=== PATIENT | female | born 1965 | race Caucasian/White ===

== ENCOUNTER 2019-06-23 17:11 | Emergency (ER) | payer OTHER, SELFPAY ==
--- NOTE | ~2019-06-23 | XR_ITS ---
EXAMINATION: XR chest 2V DATE: 06/23/2019 19:32 INDICATION: Cough TECHNIQUE: PA and lateral views of the chest are obtained. COMPARISON: 06/02/2019 FINDINGS: The lungs are hyperinflated but free of acute opacities. There is no pleural effusion or pn eumothorax. The cardiomediastinal silhouette is normal. There is moderate thoracic spondylosis. IMPRESSION: 1. Hyperinflation without acute cardiopulmonary abnormality. Reviewed, dictated and finalized at location A. 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
[2019-06-23 18:25] VITALS: BP 199/85; PULSE 102; RESP 18; TEMP 36.6; O2SAT 100
--- NOTE | 2019-06-23 18:41 | ED.URI ---
HPI - URI/Sore Throat General Chief Complaint: Upper Respiratory Infection Stated Complaint: cough that won't quit Time Seen by Provider: 06/23/19 18:24 Source: patient Mode of arrival: ambulatory Limitations: no limitations History of Present Illness HPI Narrative: The pt is a 53 y/o female who presents to the ED c/o a productive cough onset two weeks ago. Pt states that she visited Dr. Lares's office two weeks ago, and was diagnosed with flu. She states that she received Tamiflu and that she had an X-Ray performed and then was diagnosed with bronchitis. She states that she received a steroid. She notes that she has not any relief provided. She notes that she has experienced lightheadedness, CP and vomiting. She notes that she is feeling stressed at home. Pt reports a PMHx of COPD and migraines. MD elicited complaint: cough (Productive) Pertinent past history: COPD and other (Bronchitis) Onset (ago): week(s) (2) Relieving factors: nothing Associated symptoms: chest pain, vomiting and other (Lightheadedness, feeling stressed) Treatments prior to arrival: other (Steroids, Tamiflu) Related Data Home Medications Medication Instructions Recorded Confirmed amitriptyline 100 mg PO HS 03/17/19 03/17/19 baclofen 10 mg PO QID 03/17/19 03/17/19 gabapentin 600 mg PO TID 03/17/19 03/17/19 oxycodone-acetaminophen [Percocet] 1 tablet PO Q6H PRN 03/17/19 03/17/19 Allergies Allergy/AdvReac Type Severity Reaction Status Date / Time alprazolam Allergy Unknown Swelling Verified 06/02/19 13:46 Review of Systems Review of Systems: All systems reviewed & are unremarkable except as noted in HPI and below Cardiovascular: Cardiovascular: Reports chest pain Respiratory: Respiratory: Reports cough (Productive) Gastrointestinal: Gastrointestinal: Reports vomiting Neurologic: Reports other (Lightheadedness) Psychiatric: Psychiatric: Reports other (Feeling stressed) [facility] Past Medical History Medical History (Updated 06/23/19 @ 21:38 by Aaron Shankar MD) Bronchitis Carpal tunnel syndrome on both sides Carpal tunnel syndrome, bilateral Chronic back pain COPD (chronic obstructive pulmonary disease) Depression Emphysema of lung GERD (gastroesophageal reflux disease) Migraines PUD (peptic ulcer disease) Surgical History Surgical History (Updated 06/23/19 @ 18:57 by Russel Lisa) H/O Spinal surgery Lumbar spinal cage H/O tubal ligation History of carpal tunnel surgery History of shoulder surgery Left S/P endometrial ablation Social History Social History Smoking status: Current every day smoker Tobacco type: cigarettes Second hand tobacco smoke exposure: No Alcohol intake: current Substance use: never Comments PCP: Dr. Lares Exam Narrative: Exam Narrative: GENERAL: Well-appearing, well-nourished, and in no acute distress. HEAD: Normocephalic, atraumatic. EYES: PERRLA and EOMI. ENT: Nares clear, no rhinorrhea or epistaxis. Mucous membranes moist. NECK: Supple. CHEST: Clear to auscultation. No respiratory distress. HEART: Regular rate and rhythm. No murmur heard. Normal peripheral pulses. ABDOMEN: Soft, nontender, nondistended, normal active bowel sounds. EXTREMITIES: Normal range of motion. No edema. SKIN: Warm, dry, no rash. NEURO: No focal deficits. Alert and oriented x3. PSYCH: Normal mood and affect. Course Course Emergency Course: Inform patient about her lab work, chest x-ray findings. Advised her to cut down smoking which will help with her cough. However patient does not believe the chest x-ray results here. I advised her to follow-up with her primary doctor. Vital Signs Vital signs: Vital Signs Temperature 36.6 C 06/23/19 18:25 Pulse Rate 102 H 06/23/19 18:25 Respiratory Rate 18 06/23/19 18:25 Blood Pressure 199/85 H 06/23/19 18:25 Pulse Oximetry 100 06/23/19 18:25 Temperature 36.6 C 06/23/19 18:
[2019-06-23 20:38] LABS: Basophils Percent Auto 0.5 % (0.2-1.2); Eosinophils Absolute Auto 0.1 K/mm3 (0-0.3); Eosinophils Percent Auto 1.6 % (0-4.4); Hematocrit 47.2 % (37.0-47.0); Hemoglobin 15.8 g/dL (12.0-15.0); Immature Granulocyte Absolute 0.02 K/mm3 (0.00-0.031); Immature Granulocyte Percent A 0.2 % (0-0.5); Lymphocytes Absolute Auto 3.56 K/mm3 (0.9-3.2); Lymphocytes Percent Auto 40.4 % (18.3-44.2); Mean Corpuscular HGB Conc 33.5 g/dl (32-36); Mean Corpuscular Hemoglobin 33.1 pg (26-34); Mean Corpuscular Volume 98.7 fl (80-100); Mean Platelet Volume 9.4 fl (7.4-10.4); Monocytes Absolute Auto 0.4 K/mm3 (0.1-0.6); Monocytes Percent Auto 4.4 % (2.6-8.5); Neutrophils Absolute Auto 4.7 K/mm3 (1.3-6.7); Neutrophils Percent Auto 52.9 % (45.5-73.1); Platelet Count Result 257 k/mm3 (150-375); Red Blood Count 4.78 M/mm3 (4.2-5.4); Red Cell Distribution Width 12.9 % (11.5-14.5); White Blood Count 8.8 K/mm3 (4.5-10.0)
[2019-06-23 20:50] LABS: Blood Urea Nitrogen 8 mg/dL (7-17); Calcium 9.6 mg/dL (8.4-10.2); Carbon Dioxide 29 mmol/L (22-30); Chloride 98 mmol/L (98-107); Estimated Glomerular Filt Rate > 60; Glucose 97 mg/dL (65-105); Sodium 139 mmol/L (137-145)
[2019-06-23 21:02] LABS: NT Pro B Type Natriuretic Pept 166 PG/ML (5-100); Troponin I < 0.012 ng/mL (0.000-0.034)
--- NOTE | 2019-06-23 21:41 | ECG_ITS ---
Measurements Intervals [place] Rate: 79 P: 48 DE: 134 QRS: 50 QRSD: 153 T: 42 QT: 411 QTc: 472 Interpretive Statements SINUS RHYTHM WITH SINUS ARRHYTHMIA RIGHT BUNDLE BRANCH BLOCK ABNORMAL ECG Electronically Signed On 06-24-2019 6:57:46 ELECTRICAL MACHINE BUILDER by Mike Tee D.O.
[2019-06-23 22:03] VITALS: BP 169/90; PULSE 98; RESP 16; O2SAT 96
== END 2019-06-23 22:04 | disposition home or self-care (01) ==
PROVIDERS: Emergency Provider Family Medicine; PCP Internal Medicine
DX: R07.89 Other chest pain (principal); J44.9 Chronic obstructive pulmonary disease, unspecified; K21.9 Gastro-esophageal reflux disease without esophagitis; Z86.711 Personal history of pulmonary embolism; M54.9 Dorsalgia, unspecified; G89.29 Other chronic pain; F17.210 Nicotine dependence, cigarettes, uncomplicated; I45.10 Unspecified right bundle-branch block
CPT/HCPCS: 36415; 71046; 80048; 83880; 84484; 85025; 93005; 99284

== ENCOUNTER 2019-09-07 10:36 | Outpatient (CLI) | payer OTHER, SELFPAY ==
--- NOTE | ~2019-09-07 | XR_ITS ---
XR lumbar spine 2-3V 09/07/2019 10:58 Indication: Low back pain Procedure: 3 views lumbar spine Comparison: No prior studies for comparison. Findings: There is dextrocurvature of the lumbar spine centered at L3. There is disc narrowing at L4- 5 and L5-S1. There are prosthetic cage devices at L5-S1. There is facet hypertrophy at L4-5 and L5-S1 . No acute fracture or traumatic malalignment. Pedicles intact. Impression: 1: Mild-moderate lower lumbar spondylosis with dextroscoliosis. Reviewed, dictated and finalized at location A. Impression: 1: Mild-moderate lower lumbar spondylosis with dextroscoliosis.
== END 2019-09-07 10:37 | disposition home or self-care (01) ==
LOC: ANHIMG 10:38
PROVIDERS: PCP Internal Medicine; Visit Provider Internal Medicine
DX: M54.9 Dorsalgia, unspecified (principal); M47.816 Spondylosis without myelopathy or radiculopathy, lumbar region; M41.86 Other forms of scoliosis, lumbar region
CPT/HCPCS: 72100

== ENCOUNTER 2019-09-08 10:22 | Outpatient (CLI) | payer OTHER, SELFPAY ==
--- NOTE | ~2019-09-08 | XR_ITS ---
EXAMINATION: XR_CERV2-3V_CR DATE: 09/08/2019 10:46 INDICATION: Neck pain. TECHNIQUE: 3 views of cervical spine were obtained. COMPARISON: None. FINDINGS: There is 11 degrees levoscoliosis of cervical spine. There is 2 mm retrolisthesis of C4 on C5 and C5 on C6. Vertebral body heights are normal. There is moderately decreased disc height at C3-C 4 and severely decreased disc height from C4-C5 through C6-C7. There is multilevel uncovertebral join t osteoarthritis, severe bilaterally from C4-C5 through C6-C7. There is multilevel mild to moderate f acet joint osteoarthritis. There is mild central canal stenosis at C4-C5, C5-C6, and C6-C7. No prever tebral soft tissue swelling. IMPRESSION: 1. Severe cervical spondylosis. 2. Cervical levoscoliosis. Reviewed, dictated and finalized at location A.
== END 2019-09-08 10:23 | disposition home or self-care (01) ==
PROVIDERS: PCP Internal Medicine; Visit Provider Internal Medicine
DX: M54.2 Cervicalgia (principal); M47.812 Spondylosis without myelopathy or radiculopathy, cervical region; M41.82 Other forms of scoliosis, cervical region
CPT/HCPCS: 72040

== ENCOUNTER 2019-11-02 09:16 | Outpatient (CLI) | payer OTHER, SELFPAY ==
--- NOTE | ~2019-11-02 | CT_ITS ---
EXAMINATION: CT lung screening DATE: 11/02/2019 10:04 INDICATION: Personal history of tobacco dependence, current smoker with 30 pack year history TECHNIQUE: Computed tomography (CT) of the chest was performed without intravenous contrast. The dose -length product (DLP) was 74.35 mGy-cm. 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 COMPARISON: 08/04/2007. FINDINGS: There is a 7 mm groundglass nodule of the right upper lobe on image 39. There is a 4 mm nod ule in the left upper lobe on image 29. There is moderate emphysema. The lungs are free of focal airs pace opacities. There is no pleural effusion or pneumothorax. No pathologically enlarged thoracic lym ph nodes are identified. The heart size is normal. Calcified coronary artery atherosclerosis is noted . Punctate calcifications in an otherwise normal spleen likely represent healed granulomatous disease . There is moderate thoracic spondylosis. IMPRESSION: 1. Lung-RADS category 2: Benign appearance or behavior. Continue annual screening with noncontrast lo w-dose chest CT in 12 months. Reviewed, dictated and finalized at location A. IMPRESSION: 1. Lung-RADS category 2: Benign appearance or behavior. Continue annual screeni ng with noncontrast low-dose chest CT in 12 months.
== END 2019-11-02 09:17 | disposition home or self-care (01) ==
PROVIDERS: PCP Internal Medicine; Visit Provider Internal Medicine Critical Care Medicine
DX: Z12.2 Encounter for screening for malignant neoplasm of respiratory organs (principal); Z87.891 Personal history of nicotine dependence
CPT/HCPCS: G0297

== ENCOUNTER 2019-11-26 13:33 | Outpatient (CLI) | payer OTHER, SELFPAY ==
--- NOTE | 2019-11-28 17:57 | WPDSIXMINUTE ---
Six Minute Walk Six Minute Walk: DOS: 11/26/2019 REQUESTING: Philippe Funez REASON FOR TESTING: Shortness of breath SIX MINUTE WALK This test was conducted per ATS guidelines. Pulse is 96. The saturation ranged from 91-95%, and the pulse ranged from 95 to 116. Distance walked was 1000 feet, 335 meters. IMPRESSION: This is a normal walk study. There is no hypoxemia, no supplemental oxygen is indicated with exertion. Distance walked is slightly low for age.
--- NOTE | 2019-11-28 18:09 | WPDPFTINT ---
PFT Interpretation PFT Interpretation: DOS: 11/26/2019 REQUESTING: Philippe Funez REASON FOR TESTING: Bronchitis, shortness of breath PULMONARY FUNCTION TESTS Results are reliable and reproducible. Spirometry: FEV1 is 92% predicted, 2.5 L. FVC is 98%. FEV1% is 70% and increased to 74% after bronchodilator. The HNX92-89% is 47%, very slow. After bronchodilator, there is increase in small airways flows, 51%, which is significant. Lung volumes: TLC 114%, normal. RV 141%, increased, consistent with moderate air trapping. Airway resistance is 172%, increased. Diffusion: DLCO is 69%, mildly decreased. Flow volume loop: The inspiratory limb is not reproducible. The expiratory limb appears normal. IMPRESSION: Severe small airways pattern with good response to bronchodilator, moderate air trapping and mild diffusion impairment. This pattern suggests possible overlap of emphysema and asthma. Clinical correlation advised. Eva Wilkes MD
== END 2019-11-26 13:34 | disposition home or self-care (01) ==
PROVIDERS: PCP Internal Medicine; Visit Provider Internal Medicine Critical Care Medicine
DX: J44.9 Chronic obstructive pulmonary disease, unspecified (principal); R94.2 Abnormal results of pulmonary function studies
CPT/HCPCS: 99199; 94060; 94618; 94726; 94729

== ENCOUNTER 2019-12-15 08:22 | Outpatient (CLI) | payer OTHER, SELFPAY | END 2019-12-15 08:23 | disposition home or self-care (01) | PROVIDERS: PCP Internal Medicine; Visit Provider Internal Medicine Gastroenterology | DX: R19.7 Diarrhea, unspecified (principal) | CPT/HCPCS: 87045; 87046; 87177; 87209; 87324; 87425; 87427; 89055 ==

== ENCOUNTER 2019-12-16 12:49 | Emergency (ER) | payer OTHER, SELFPAY ==
--- NOTE | ~2019-12-16 | XR_ITS ---
EXAMINATION: XR toe 1st LT min 2V INDICATION: Left first toe pain TECHNIQUE: Three views of the left first toe are obtained. COMPARISON: None available FINDINGS: There is no fracture, dislocation, or subluxation. The joint spaces are normal. There is mi ld soft tissue swelling of the first toe. IMPRESSION: 1. No acute osseous abnormality. Reviewed, dictated and finalized at location A.
[2019-12-16 12:57] VITALS: BP 146/79; PULSE 92; RESP 20; TEMP 37.5; O2SAT 98
--- NOTE | 2019-12-16 13:04 | ED.GENADULT ---
HPI - General Adult General Chief complaint: Extremity Injury, Lower Stated complaint: injury left great toe Time Seen by Provider: 12/16/19 13:04 Source: patient Mode of arrival: ambulatory Limitations: no limitations History of Present Illness HPI narrative: 54-year-old female patient presents to the [facility] with complaints of left great toe pain. Patient states she hit it on a wooden stair yesterday when going up the stairs. Patient states that she has had issues with her toenails before in the past and has had fungus and has had both toenails removed in the past. Patient states that she thinks she might of ripped the toenail. Patient states that her certified personal trainer that she went to in the past no longer takes her insurance. Patient was told by the people over the phone that she might need a tetanus shot. Patient unaware of when her last tetanus shot was. Patient states that she has a kari in her back shows she does take Percocet daily for this which she has been taking for the toe pain as well. Patient states it does have increase in pain to the left great toe when she is walking. Related Data Home Medications Medication Instructions Recorded Confirmed gabapentin 600 mg PO TID 03/17/19 09/01/19 oxycodone-acetaminophen [Percocet] 1 tablet PO Q6H PRN 03/17/19 09/01/19 baclofen 10 mg tablet 10 mg PO TID tablet 09/22/19 montelukast 10 mg tablet 10 mg PO DAILY 09/22/19 Allergies Allergy/AdvReac Type Severity Reaction Status Date / Time varenicline [From Chantix] Allergy Intermediate nightmares, Verified 12/13/19 13:08 sleep walking alprazolam Allergy Unknown Swelling Verified 12/13/19 13:08 Review of Systems Review of Systems: Narrative: CONSTITUTIONAL: Denies fever, chills, or sweats. EYES: Denies visual changes, redness, or discharge. ENT: Denies rhinorrhea, congestion, sore throat, or otalgia. CARDIOVASCULAR: Denies chest pain, palpitations, or edema. RESPIRATORY: Denies cough or dyspnea. GASTROINTESTINAL: Denies abdominal pain, nausea, vomiting, or diarrhea. GENITOURINARY: Denies dysuria or hematuria. SKIN: Denies rash or itching. MUSCULOSKELETAL: Denies back pain, joint pain, or myalgia. Positive left great toe pain NEUROLOGIC: Denies headache, numbness, or weakness. PSYCHIATRIC: Denies anxiety or depression. [facility] Past Medical History Medical History Bronchitis Carpal tunnel syndrome on both sides Carpal tunnel syndrome, bilateral Chronic back pain COPD (chronic obstructive pulmonary disease) Depression Emphysema of lung GERD (gastroesophageal reflux disease) Migraines Nicotine dependence Osteoarthritis of left hip PUD (peptic ulcer disease) Surgical History Surgical History H/O Spinal surgery Lumbar spinal cage H/O tubal ligation History of carpal tunnel surgery History of shoulder surgery Left S/P endometrial ablation Family History Family History Father Malignant neoplasm of prostate Patient's father is Sibling Patient's sister is Mother Family history of malignant neoplasm Other Diabetes mellitus Family history of cardiovascular disease Hypertension Social History Social History Smoking status: Current every day smoker Tobacco type: cigarettes Second hand tobacco smoke exposure: No Alcohol intake: current Drinks per week: 2 Substance use: never Substance use type: does not use Comments At the time of my signature I agree with nursing past medical history, surgical, social, and family history. There is no relevant family history pertinent to the presenting complaint. Exam Narrative: Exam Narrative: GENERAL: Well-appearing, well-nourished, and in no acute distress. HEAD: Normocephalic, atraumatic. EYES
[2019-12-16] MEDS: TETANUS,DIPHTHERIA,AC PERTUSSIS ADULT (0.5 ML) BOOSTRIX IM (13:41)
== END 2019-12-16 14:01 | disposition home or self-care (01) ==
PROVIDERS: Emergency Provider Nurse Practitioner Family; PCP Internal Medicine
DX: M79.675 Pain in left toe(s) (principal); J43.9 Emphysema, unspecified; F17.210 Nicotine dependence, cigarettes, uncomplicated; Z23 Encounter for immunization
CPT/HCPCS: 73660; 90471; 90715; 99213; G0463

== ENCOUNTER 2019-12-21 09:05 | Outpatient (CLI) | payer OTHER, SELFPAY ==
--- NOTE | ~2019-12-21 | US_ITS ---
EXAMINATION: US abdomen complete DATE: 12/21/2019 10:34 INDICATION: Abdominal pain TECHNIQUE: Multiple grayscale and Doppler ultrasound images of the abdomen were obtained. COMPARISON: 09/27/2013 FINDINGS: Abdominal aorta measures 2.1 cm in the proximal aorta, 1.8 cm in the mid aorta and 1.7 in the distal aorta. Left common iliac artery measures 1.5 cm and the right common iliac artery measures 1.0 cm. Th e pancreatic head and body are normal in appearance with main pancreatic duct measuring up to 2 mm in diameter which remains within normal limits. The pancreatic tail is not visualized. Liver has normal echogenicity and contour, with a smooth surface. No liver lesion identified. No intrahepatic biliary duct dilation suspected. Portal venous flow was seen in the hepatopetal, normal direction and has no rmal Doppler waveform. The visualized proximal inferior vena cava is normal. The gallbladder is chantelle l in appearance. There is no cholelithiasis. The common bile duct is dilated to 8 mm but appears to taper smoothly at the head of the pancreas on the decubitus imaging with no evident obstructing stone or mass. Sonographic Neely sign was reported as negative by the dyed yarn operator. There is normal renal contour and echogenicity bilaterally. The right kidney measures 12.9 x 6.2 x 6.8 cm and the left 10.2 x 4.1 x 5.9 cm. 1.3 cm anechoic cyst at the inferior pole of the right kidney. No other renal lesion s or shadowing nephrolithiasis. There is no hydronephrosis. Spleen measures 10.2 cm in maximal length of multiple small echogenic shadowing calcified granulomata. Bladder is incompletely distended which limits evaluation but appears normal. IMPRESSION: 1. Dilated common bile duct measuring up to 8 mm but with normal gallbladder, no intrahepatic biliary ductal dilation and no evident obstructing mass or gallstones. Correlate with LFTs and could conside r MRCP for further evaluation. Reviewed, dictated and finalized at location A. IMPRESSION: 1. Dilated common bile duct measuring up to 8 mm but with normal gallbladder, n o intrahepatic biliary ductal dilation and no evident obstructing mass or galls tones. Correlate with LFTs and could consider MRCP for further evaluation.
== END 2019-12-21 09:06 | disposition home or self-care (01) ==
PROVIDERS: PCP Internal Medicine; Visit Provider Internal Medicine
DX: R10.9 Unspecified abdominal pain (principal)
CPT/HCPCS: 76700

== ENCOUNTER 2020-01-02 08:46 | Outpatient (CLI) | payer OTHER, SELFPAY ==
--- NOTE | ~2020-01-02 | MR_ITS ---
EXAMINATION: MR abdomen wo/w con DATE: 01/02/2020 09:51 INDICATION: Abdominal pain. Dilated common bile duct. TECHNIQUE: Magnetic resonance imaging (MRI) of the abdomen was performed without and with 15 mL Multi david intravenous contrast. Sequences included coronal T2-weighted SS-FSE, coronal and axial FS 2D-F IESTA, axial STIR FSE, axial T2-weighted SS-FSE, axial T2-weighted FS SS-FSE, axial diffusion-weighte d SE, axial dual-echo T1-weighted FSPGR, and axial and coronal T1-weighted LAVA. Postcontrast axial T 1-weighted LAVA images were obtained in a time course. Postcontrast coronal T1-weighted LAVA images w ere obtained. COMPARISON: Ultrasound dated 12/11/[address] dated 09/27/2013 FINDINGS: Heart size is normal. No pericardial or pleural effusion. There are couple subcentimeter T2 hyperinte nse lesions in segment 2 of the liver the more peripheral remaining without enhancement consistent wi th a hepatic cyst in the more medial with homogeneous enhancement which persists isodense to the bloo d pool on the 5 and 10 minute delayed images consistent with a hemangioma. Liver is otherwise normal with no intrahepatic biliary ductal dilation. Gallbladder, spleen, pancreas, bilateral adrenal glands and left kidney are normal. 1.3 cm nonenhancing right renal cyst. The common bile duct is mildly dil ated to 7 mm which tapers distally with smooth mucosal margins and with no evident intraluminal filli ng defects to suggest choledocholithiasis. Prominent diverticulosis along the visualized portions of the colon. No dilated bowel to suggest obstruction. No pathologically enlarged abdominal lymphadenopa thy. L5-S1 discectomy with magnetic field artifact associated with interbody fusion device for anteri or spinal fusion. Normal bone marrow signal throughout. IMPRESSION: 1. Nonspecific mild dilation of the common bile duct to 7 mm with no evident obstructing stone or les ion and no intrahepatic third ductal dilation. 2. Diverticulosis. Reviewed, dictated and finalized at location A. IMPRESSION: 1. Nonspecific mild dilation of the common bile duct to 7 mm with no evident ob structing stone or lesion and no intrahepatic third ductal dilation. 2. Diverticulosis.
[2020-01-02 09:20] LABS: Estimated Glomerular Filt Rate > 60
== END 2020-01-02 08:47 | disposition home or self-care (01) ==
PROVIDERS: PCP Internal Medicine; Visit Provider Internal Medicine
DX: K83.8 Other specified diseases of biliary tract (principal); R10.9 Unspecified abdominal pain; K57.30 Diverticulosis of large intestine without perforation or abscess without bleeding
CPT/HCPCS: 36415; 74183; A9577

== ENCOUNTER 2020-02-16 01:09 | Outpatient (CLI) | payer OTHER, SELFPAY ==
[2020-02-16 19:19] LABS: SARS-CoV-2 RNA PCR Negative
== END 2020-02-16 01:10 | disposition home or self-care (01) ==
LOC: ANHCOVIDDT 01:09
PROVIDERS: PCP Internal Medicine; Visit Provider Internal Medicine Gastroenterology
DX: Z01.812 Encounter for preprocedural laboratory examination (principal); Z20.828 Contact with and (suspected) exposure to other viral communicable diseases
CPT/HCPCS: 87635; C9803; U0003

== ENCOUNTER 2020-02-18 00:15 | Day surgery (SDC) | payer OTHER, SELFPAY ==
[2020-02-14 13:22] VITALS: BMI 26.1
[2020-02-18 10:51] VITALS: BP 128/83; PULSE 89; RESP 18; TEMP 37.1; O2SAT 100
[2020-02-18] MEDS: LACTATED RINGERS 1,000 ML 150 ML IV CONT (11:02)
--- NOTE | 2020-02-18 11:04 | WPDANESEPPF ---
Anes - Initial Pre Proc Eval Procedure: Operation Date: 02/18/20 11:30 Proposed Procedures p Esophagogastroduodenoscopy & Colonoscopy - David Sanderson MD Date/Time: 02/18/20 11:04 Surgeon: David Sanderson MD Pre Op Diagnosis: diarrhea, abd pain Patient Data Age: 54 Gender: F Height: 5 ft 8 in Weight: 73.6 kg Last Vital Signs Temp 98.8 F 02/18/20 10:51 Pulse 89 02/18/20 10:51 Resp 18 02/18/20 10:51 BP 128/83 02/18/20 10:51 Pulse Ox 100 02/18/20 10:51 Allergies Allergy/AdvReac Type Severity Reaction Status Date / Time varenicline [From Chantix] Allergy Intermediate nightmares, Verified 02/18/20 10:49 sleep walking alprazolam Allergy Unknown Swelling Verified 02/18/20 10:49 Home Medications Medication Instructions Recorded Confirmed Type gabapentin 600 mg PO TID 03/17/19 02/14/20 History oxycodone-acetaminophen [Percocet] 1 tablet PO Q6H PRN 03/17/19 02/18/20 History baclofen 10 mg tablet 10 mg PO TID tablet 09/22/19 02/14/20 History montelukast 10 mg tablet 10 mg PO DAILY 09/22/19 02/14/20 History albuterol sulfate 2.5 mg INHALATION Q6H PRN #90 ml 11/10/19 02/14/20 Rx benzonatate 200 mg capsule 200 mg PO BID PRN #20 cap 12/03/19 02/14/20 Rx omeprazole 20 mg capsule,delayed 20 mg PO DAILY #90 cap 12/03/19 02/14/20 Rx release sertraline 25 mg tablet 25 mg PO DAILY #90 tablet 12/03/19 02/14/20 Rx cetirizine 10 mg tablet 10 mg PO .hs #30 tablet 12/09/19 02/14/20 Rx fluticasone propionate 50 2 spray NASAL DAILY PRN #15.8 ml 12/09/19 02/14/20 Rx mcg/actuation nasal spray,suspension mometasone-formoterol HFA 100 2 puff INHALATION Q12H #13 gm 01/04/20 02/14/20 Rx mcg-5 mcg/actuation aerosol inhaler peg 3350-electrolytes 236 240 ml PO Q10M #4000 ml 01/19/20 Rx gram-22.74 gram-6.74 gram-5.86 gram solution albuterol sulfate 90 mcg/actuation 2 inhalation INHALATION Q4-6H PRN 02/09/20 02/14/20 Rx aerosol inhaler #8.5 gm inhalational spacing device #1 each 02/11/20 Rx tiotropium bromide 18 mcg capsule 1 cap INHALATION DAILY #30 cap 02/11/20 02/18/20 Rx with inhalation device Patient hx anesthesia problems: none Family hx anesthesia problems: none PMFSH Past Medical History Medical History (Updated 12/17/19 @ 00:00 by Greer Cassidy) Bronchitis Carpal tunnel syndrome on both sides Carpal tunnel syndrome, bilateral Chronic back pain COPD (chronic obstructive pulmonary disease) Depression Emphysema of lung GERD (gastroesophageal reflux disease) Migraines Nicotine dependence Osteoarthritis of left hip PUD (peptic ulcer disease) Surgical History Surgical History H/O Spinal surgery Lumbar spinal cage H/O tubal ligation History of carpal tunnel surgery History of shoulder surgery Left S/P endometrial ablation Family History Family History Father Malignant neoplasm of prostate Patient's father is Sibling Patient's sister is Mother Family history of malignant neoplasm Other Diabetes mellitus Family history of cardiovascular disease Hypertension Social History Social History Smoking packs per day: 1 Smoking cigarettes per day: 20.0 Years smoked: 45 Smoking pack-years: 45.00 Smoking status: Current every day smoker Tobacco type: cigarettes Second hand tobacco smoke exposure: No Alcohol intake: current Drinks per week: 4 Substance use: never Substance use type: does not use Living arrangements: with family Spiritual care concerns: No Anes - Eval Final PreProcedure Day of Procedure 02/18/20 11:04 Patient weight: normal Heart: regular rate and rhythm Lungs: clear to auscultation Airway: Mallampati scale class II Neurological: alert and oriented Last oral intake: >/= 8 hours ASA
--- NOTE | 2020-02-18 11:26 | PM.HPGS ---
History of Present Illness History of Present Illness Consent: Risks, benefits, and alternatives have been discussed and questions answered. Patient agrees to proceed with procedure. Chief complaint: diarrhea, abd pain Narrative: Destini Dozier is a 54 year old female with diarrhea and abdominal pain, stool samples and MRI abdomen no major findings. Review of Systems Constitutional: Constitutional: Denies headache(s) and Denies weakness Eyes: Eyes: Denies blurry vision ENT: Reports Normal hearing present, Denies headache(s) and Denies neck pain Cardiovascular: Cardiovascular: Denies chest pain and Denies dyspnea Respiratory: Respiratory: Denies dyspnea Gastrointestinal: Gastrointestinal: Reports no additional gastrointestinal complaints Genitourinary: Genitourinary: Denies dysuria Musculoskeletal: Musculoskeletal: Denies neck pain Integumentary/Breasts: Skin/Breast: Denies dry skin Neurologic: Reports Normal hearing present, Denies headache(s) and Denies weakness Psychiatric: Psychiatric: Denies anxiety Endocrine: Endocrine: Denies change in body appearance Hematologic/Lymphatic: Hematologic/Lymphatic: Denies easy bleeding Allergic/Immunologic: Allergic/Immunologic: Denies urticaria PMFSH Past Medical History Medical History (Updated 02/18/20 @ 11:27 by David Sanderson MD) Bronchitis Carpal tunnel syndrome on both sides Carpal tunnel syndrome, bilateral Chronic back pain COPD (chronic obstructive pulmonary disease) Depression Diarrhea Emphysema of lung GERD (gastroesophageal reflux disease) Migraines Nicotine dependence Osteoarthritis of left hip PUD (peptic ulcer disease) Surgical History Surgical History H/O Spinal surgery Lumbar spinal cage H/O tubal ligation History of carpal tunnel surgery History of shoulder surgery Left S/P endometrial ablation Family History Family History Father Malignant neoplasm of prostate Patient's father is Sibling Patient's sister is Mother Family history of malignant neoplasm Other Diabetes mellitus Family history of cardiovascular disease Hypertension Social History Social History Smoking packs per day: 1 Smoking cigarettes per day: 20.0 Years smoked: 45 Smoking pack-years: 45.00 Smoking status: Current every day smoker Tobacco type: cigarettes Second hand tobacco smoke exposure: No Alcohol intake: current Drinks per week: 4 Substance use: never Substance use type: does not use Living arrangements: with family Spiritual care concerns: No Meds Home Medications and Allergies Home Medications Medication Instructions Recorded Confirmed Type gabapentin 600 mg PO TID 03/17/19 02/14/20 History oxycodone-acetaminophen [Percocet] 1 tablet PO Q6H PRN 03/17/19 02/18/20 History baclofen 10 mg tablet 10 mg PO TID tablet 09/22/19 02/14/20 History montelukast 10 mg tablet 10 mg PO DAILY 09/22/19 02/14/20 History albuterol sulfate 2.5 mg INHALATION Q6H PRN #90 ml 11/10/19 02/14/20 Rx benzonatate 200 mg capsule 200 mg PO BID PRN #20 cap 12/03/19 02/14/20 Rx omeprazole 20 mg capsule,delayed 20 mg PO DAILY #90 cap 12/03/19 02/14/20 Rx release sertraline 25 mg tablet 25 mg PO DAILY #90 tablet 12/03/19 02/14/20 Rx cetirizine 10 mg tablet 10 mg PO .hs #30 tablet 12/09/19 02/14/20 Rx fluticasone propionate 50 2 spray NASAL DAILY PRN #15.8 ml 12/09/19 02/14/20 Rx mcg/actuation nasal spray,suspension mometasone-formoterol HFA 100 2 puff INHALATION Q12H #13 gm 01/04/20 02/14/20 Rx mcg-5 mcg/actuation aerosol inhaler peg 3350-electrolytes 236 240 ml PO Q10M #4000 ml 01/19/20 Rx gram-22.74 gram-6.74 gram-5.86 gram solution albuterol sulfate 90 mcg/actuation 2 inhalation INHALATION Q4-6H PRN 02/09/20
[2020-02-18 12:58] VITALS: BP 115/77; PULSE 71; RESP 20; O2SAT 98
[2020-02-18 13:08] VITALS: BP 126/84; PULSE 69; RESP 18; O2SAT 99
[2020-02-18 13:18] VITALS: BP 146/94; PULSE 73; RESP 18; O2SAT 99
== END 2020-02-18 13:51 | disposition home or self-care (01) ==
PROVIDERS: PCP Internal Medicine; Visit Provider Internal Medicine Gastroenterology
PROC: 0DJ08ZZ Inspection of Upper Intestinal Tract, Via Natural or Artificial Opening Endoscopic (ICD-10-PCS; CPT 43235; principal; 2020-02-18 11:30)
DX: Z12.11 Encounter for screening for malignant neoplasm of colon (principal); D12.0 Benign neoplasm of cecum; D12.2 Benign neoplasm of ascending colon; D12.3 Benign neoplasm of transverse colon; K63.5 Polyp of colon; R19.7 Diarrhea, unspecified; K21.00 Gastro-esophageal reflux disease with esophagitis, without bleeding; K29.70 Gastritis, unspecified, without bleeding; J44.9 Chronic obstructive pulmonary disease, unspecified; K21.9 Gastro-esophageal reflux disease without esophagitis; F32.9 Major depressive disorder, single episode, unspecified; F17.210 Nicotine dependence, cigarettes, uncomplicated
CPT/HCPCS: 45380; 45381; 45385; 43239; 88305; J2704; J7120

== ENCOUNTER 2020-04-05 14:08 | Emergency (ER) | payer OTHER, SELFPAY ==
[2020-04-05 14:17] VITALS: BP 121/75; PULSE 75; RESP 18; TEMP 37.4; O2SAT 98
--- NOTE | 2020-04-05 14:38 | ED.URI ---
HPI - URI/Sore Throat General Chief Complaint: Upper Respiratory Infection Stated Complaint: Runny Nose, Congestion Source: patient Mode of arrival: ambulatory Limitations: no limitations History of Present Illness HPI Narrative: Patient is a 54-year-old female who presents complaining of cough, congestion, purulent nasal drainage, facial pressure and headache. Patient reports congestion for over a week. She reports fevers over the past few days 100.7 here in the highest, patient reports increased facial pain and headache over the past day. Patient has a history of COPD and is concerned with multiple symptoms. She denies taking [id number] medications at this time. She reports attempting to get in with PCP but he is out of town. MD elicited complaint: fever, cough, nasal congestion, sinus pain and other (Headache) Related Data Home Medications Medication Instructions Recorded Confirmed gabapentin 600 mg PO TID 03/17/19 04/05/20 baclofen 10 mg tablet 10 mg PO TID tablet 09/22/19 04/05/20 montelukast 10 mg tablet 10 mg PO DAILY 09/22/19 04/05/20 terbinafine HCl [Lamisil] 250 mg PO DAILY 04/05/20 04/05/20 Allergies Allergy/AdvReac Type Severity Reaction Status Date / Time alprazolam Allergy Unknown Swelling Verified 03/14/20 09:00 varenicline [From Chantix] AdvReac Intermediate nightmares, Verified 04/05/20 14:28 sleep walking Review of Systems Review of Systems: Narrative: CONSTITUTIONAL: Reports fever EYES: Denies visual changes, redness, or discharge. ENT: Reports congestion, sinus pressure, purulent drainage CARDIOVASCULAR: Denies chest pain, palpitations, or edema. RESPIRATORY: Reports cough and mild dyspnea. GASTROINTESTINAL: Denies abdominal pain, nausea, vomiting, or diarrhea. GENITOURINARY: Denies dysuria or hematuria. SKIN: Denies rash or itching. MUSCULOSKELETAL: Denies back pain, joint pain, or myalgia. NEUROLOGIC: Reports headache, denies numbness, dizziness, or weakness. PSYCHIATRIC: Denies anxiety or depression. [facility] Past Medical History Medical History Bronchitis Carpal tunnel syndrome on both sides Carpal tunnel syndrome, bilateral Chronic back pain COPD (chronic obstructive pulmonary disease) Depression Diarrhea Emphysema of lung GERD (gastroesophageal reflux disease) Migraines Nicotine dependence Osteoarthritis of left hip PUD (peptic ulcer disease) Surgical History Surgical History H/O Spinal surgery Lumbar spinal cage H/O tubal ligation History of carpal tunnel surgery History of shoulder surgery Left S/P endometrial ablation Family History Family History Father Malignant neoplasm of prostate Patient's father is Sibling Patient's sister is Mother Family history of malignant neoplasm Other Diabetes mellitus Family history of cardiovascular disease Hypertension Social History Social History Smoking packs per day: 1 Smoking cigarettes per day: 20.0 Years smoked: 45 Smoking pack-years: 45.00 Smoking status: Current every day smoker Tobacco type: cigarettes Second hand tobacco smoke exposure: No Alcohol intake: current Drinks per week: 4 Substance use: never Substance use type: does not use Spiritual care concerns: No Exam Narrative: Exam Narrative: GENERAL: Well-appearing, well-nourished, and in no acute distress. HEAD: Normocephalic, atraumatic. EYES: EOMI. No redness or drainage. Conjunctiva are normal. ENT: Mucous membranes pink and moist. Nares clear. Maxillary sinus tenderness with palpation , throat normal. Uvula midline. NECK: AROM. Supple. No lymphadenopathy. CHEST: No respiratory distress. Generalized coarse lung sounds. HEART: Regular rate and rhythm. EXTREMI
== END 2020-04-05 14:52 | disposition home or self-care (01) ==
PROVIDERS: Emergency Provider Nurse Practitioner; PCP Internal Medicine
DX: J01.00 Acute maxillary sinusitis, unspecified (principal); Z20.828 Contact with and (suspected) exposure to other viral communicable diseases; F17.210 Nicotine dependence, cigarettes, uncomplicated; J44.9 Chronic obstructive pulmonary disease, unspecified; K21.9 Gastro-esophageal reflux disease without esophagitis; M16.12 Unilateral primary osteoarthritis, left hip; K27.9 Peptic ulcer, site unspecified, unspecified as acute or chronic, without hemorrhage or perforation
CPT/HCPCS: 99213; G0463

== ENCOUNTER 2020-04-07 06:53 | Outpatient (NON) | payer OTHER, SELFPAY ==
[2020-04-08 18:31] LABS: SARS-CoV-2 RNA PCR Negative
== END 2020-04-07 06:54 ==
PROVIDERS: PCP Internal Medicine; Visit Provider Nurse Practitioner
DX: Z20.828 Contact with and (suspected) exposure to other viral communicable diseases (principal); J06.9 Acute upper respiratory infection, unspecified
CPT/HCPCS: 87635; C9803; U0003

== ENCOUNTER 2020-06-16 07:44 | Outpatient (CLI) | payer OTHER, SELFPAY ==
--- NOTE | ~2020-06-16 | NM_ITS ---
EXAM: NM gastric emptying study DATE: 06/16/2020 13:41 INDICATION: Abdominal distention. TECHNIQUE: A gastric emptying study was performed using the methodology of Inga QUINTERO, et al. J Nucl Med 2007; 48:568-572. The patient was given a meal consisting of 2 scrambled eggs labeled with 1 mCi Tc-99m sulfur colloid, 2 slices of toast, two packages of jam, and approximately 120 mL of water. Si multaneous anterior and posterior 1-min images of the abdomen were obtained with the patient supine a t multiple time points over a total period of 4 hours. The geometric mean of anterior and posterior v iews was determined, and the percentage retention was calculated for each time point. COMPARISON: Abdomen MRI 01/02/2020 FINDINGS: Gastric retention of the radiotracer-labeled meal was 48%, 22%, and 1% at the 1-hour, 2-ho ur, and 4-hour time points, respectively. With this technique, apparent rapid gastric emptying is sug gested by <30% gastric retention at 1 hour. Delayed gastric emptying is defined by gastric retention of >90% at 1 hour, >60% retention at 2 hours, or >10% retention at 4 hours. IMPRESSION: 1. Normal gastric emptying. Reviewed, dictated and finalized at location A. [employer] PERFORMER IMPRESSION: 1. Normal gastric emptying.
== END 2020-06-16 07:45 | disposition home or self-care (01) ==
LOC: ANHIMG 07:47
PROVIDERS: Family Provider Internal Medicine; PCP Internal Medicine; Visit Provider Internal Medicine Gastroenterology
DX: R14.0 Abdominal distension (gaseous) (principal)
CPT/HCPCS: 78264; A9541

== ENCOUNTER → 2020-08-08 00:31 | Outpatient (CLI) | payer OTHER, SELFPAY ==
[2020-08-08 18:31] LABS: SARS-CoV-2 RNA PCR Negative
== END ==
PROVIDERS: PCP Internal Medicine; Visit Provider Internal Medicine Gastroenterology
DX: Z01.812 Encounter for preprocedural laboratory examination (principal)
CPT/HCPCS: C9803; U0003; U0005

== ENCOUNTER 2020-08-11 01:36 | Day surgery (SDC) | payer OTHER, SELFPAY ==
[2020-08-01 09:12] VITALS: BMI 26.4
[2020-08-11 07:15] VITALS: BP 120/74; PULSE 90; RESP 16; TEMP 36.8; O2SAT 97
[2020-08-11] MEDS: LACTATED RINGERS 1,000 ML 150 ML IV CONT (07:24)
--- NOTE | 2020-08-11 08:10 | WPDANESEPPF ---
Anes - Initial Pre Proc Eval Procedure: Operation Date: 08/11/20 08:30 Proposed Procedures p Colonoscopy - David Sanderson MD Date/Time: 08/11/20 08:10 Surgeon: David Sanderson MD Pre Op Diagnosis: colon polyps, abd distension Patient Data Age: 54 Gender: F Height: 5 ft 8 in Weight: 75.5 kg Last Vital Signs Temp 98.3 F 08/11/20 07:15 Pulse 90 08/11/20 07:15 Resp 16 08/11/20 07:15 BP 120/74 08/11/20 07:15 Pulse Ox 97 08/11/20 07:15 Allergies Allergy/AdvReac Type Severity Reaction Status Date / Time alprazolam Allergy Unknown Swelling Verified 08/11/20 07:20 varenicline [From Chantix] AdvReac Intermediate nightmares, Verified 08/11/20 07:20 sleep walking Home Medications Medication Instructions Recorded Confirmed Type albuterol sulfate 2.5 mg INHALATION Q6H PRN #90 ml 11/10/19 08/01/20 Rx albuterol sulfate 90 mcg/actuation 2 inhalation INHALATION Q4-6H PRN 02/09/20 08/01/20 Rx aerosol inhaler #8.5 gm inhalational spacing device #1 each 02/11/20 04/05/20 Rx tiotropium bromide 18 mcg capsule 1 cap INHALATION DAILY #30 cap 02/11/20 08/11/20 Rx with inhalation device terbinafine HCl [Lamisil] 250 mg PO DAILY 04/05/20 08/11/20 History azelastine 137 mcg (0.1 %) nasal 2 spray INTRANASAL Q12H #30 ml 04/11/20 08/11/20 Rx spray aerosol baclofen 10 mg tablet 10 mg PO TID PRN #60 tablet 04/11/20 08/11/20 Rx fluticasone propionate 50 2 spray NASAL DAILY PRN #15.8 ml 04/11/20 08/11/20 Rx mcg/actuation nasal spray,suspension levothyroxine 25 mcg tablet 25 mcg PO DAILY #90 tablet 04/11/20 08/11/20 Rx montelukast 10 mg tablet 10 mg PO DAILY #90 tablet 04/13/20 08/11/20 Rx omeprazole 10 mg capsule,delayed 20 mg PO DAILY #180 cap 05/15/20 08/11/20 Rx release plecanatide 3 mg tablet 3 mg PO DAILY #30 tablet 06/14/20 08/11/20 Rx mometasone-formoterol HFA 100 See Rx Instructions .ROUTE 07/07/20 08/11/20 Rx mcg-5 mcg/actuation aerosol inhaler .COMPLEX #13 inhaler cetirizine 10 mg tablet 10 mg PO .hs #30 tablet 07/13/20 08/11/20 Rx Patient hx anesthesia problems: none Family hx anesthesia problems: none PMFSH Past Medical History Medical History Bloating Bronchitis Carpal tunnel syndrome on both sides Carpal tunnel syndrome, bilateral Chronic back pain COPD (chronic obstructive pulmonary disease) Depression Diarrhea Emphysema of lung GERD (gastroesophageal reflux disease) Irritable bowel syndrome with constipation Migraines Nicotine dependence Osteoarthritis of left hip PUD (peptic ulcer disease) Serrated polyp of colon Surgical History Surgical History H/O Spinal surgery Lumbar spinal cage H/O tubal ligation History of carpal tunnel surgery History of shoulder surgery Left S/P endometrial ablation Family History Family History Father Malignant neoplasm of prostate Patient's father is Sibling Patient's sister is Mother Family history of malignant neoplasm Other Diabetes mellitus Family history of cardiovascular disease Hypertension Social History Social History Smoking packs per day: 1 Smoking cigarettes per day: 20.0 Years smoked: 45 Smoking pack-years: 45.00 Smoking status: Current every day smoker Tobacco type: cigarettes Second hand tobacco smoke exposure: No Alcohol intake: current Drinks per week: 10 Substance use: never Substance use type: does not use Living arrangements: with family Spiritual care concerns: No Anes - Eval Final PreProcedure Day of Procedure 08/11/20 08:10 Patient weight: overweight Heart: regular rate and rhythm Lungs: clear to auscultation Airway: Mallampati scale class II Neurological: alert and oriented L
--- NOTE | 2020-08-11 08:25 | PM.HPGS ---
History of Present Illness History of Present Illness Consent: Risks, benefits, and alternatives have been discussed and questions answered. Patient agrees to proceed with procedure. Chief complaint: colon polyps, abd distension Narrative: Destini Dozier is a 54 year old female with several large polyps removed 02/2020, here to reassess Review of Systems Constitutional: Constitutional: Denies headache(s) and Denies weakness Eyes: Eyes: Denies blurry vision ENT: Reports Normal hearing present, Denies headache(s) and Denies neck pain Cardiovascular: Cardiovascular: Denies chest pain and Denies dyspnea Respiratory: Respiratory: Denies dyspnea Gastrointestinal: Gastrointestinal: Reports no additional gastrointestinal complaints Genitourinary: Genitourinary: Denies dysuria Musculoskeletal: Musculoskeletal: Denies neck pain Integumentary/Breasts: Skin/Breast: Denies dry skin Neurologic: Reports Normal hearing present, Denies headache(s) and Denies weakness Psychiatric: Psychiatric: Denies anxiety Endocrine: Endocrine: Denies change in body appearance Hematologic/Lymphatic: Hematologic/Lymphatic: Denies easy bleeding Allergic/Immunologic: Allergic/Immunologic: Denies urticaria PMFSH Past Medical History Medical History Bloating Bronchitis Carpal tunnel syndrome on both sides Carpal tunnel syndrome, bilateral Chronic back pain COPD (chronic obstructive pulmonary disease) Depression Diarrhea Emphysema of lung GERD (gastroesophageal reflux disease) Irritable bowel syndrome with constipation Migraines Nicotine dependence Osteoarthritis of left hip PUD (peptic ulcer disease) Serrated polyp of colon Surgical History Surgical History H/O Spinal surgery Lumbar spinal cage H/O tubal ligation History of carpal tunnel surgery History of shoulder surgery Left S/P endometrial ablation Family History Family History Father Malignant neoplasm of prostate Patient's father is Sibling Patient's sister is Mother Family history of malignant neoplasm Other Diabetes mellitus Family history of cardiovascular disease Hypertension Social History Social History Smoking packs per day: 1 Smoking cigarettes per day: 20.0 Years smoked: 45 Smoking pack-years: 45.00 Smoking status: Current every day smoker Tobacco type: cigarettes Second hand tobacco smoke exposure: No Alcohol intake: current Drinks per week: 10 Substance use: never Substance use type: does not use Living arrangements: with family Spiritual care concerns: No Meds Home Medications and Allergies Home Medications Medication Instructions Recorded Confirmed Type albuterol sulfate 2.5 mg INHALATION Q6H PRN #90 ml 11/10/19 08/01/20 Rx albuterol sulfate 90 mcg/actuation 2 inhalation INHALATION Q4-6H PRN 02/09/20 08/01/20 Rx aerosol inhaler #8.5 gm inhalational spacing device #1 each 02/11/20 04/05/20 Rx tiotropium bromide 18 mcg capsule 1 cap INHALATION DAILY #30 cap 02/11/20 08/11/20 Rx with inhalation device terbinafine HCl [Lamisil] 250 mg PO DAILY 04/05/20 08/11/20 History azelastine 137 mcg (0.1 %) nasal 2 spray INTRANASAL Q12H #30 ml 04/11/20 08/11/20 Rx spray aerosol baclofen 10 mg tablet 10 mg PO TID PRN #60 tablet 04/11/20 08/11/20 Rx fluticasone propionate 50 2 spray NASAL DAILY PRN #15.8 ml 04/11/20 08/11/20 Rx mcg/actuation nasal spray,suspension levothyroxine 25 mcg tablet 25 mcg PO DAILY #90 tablet 04/11/20 08/11/20 Rx montelukast 10 mg tablet 10 mg PO DAILY #90 tablet 04/13/20 08/11/20 Rx omeprazole 10 mg capsule,delayed 20 mg PO DAILY #180 cap 05/15/20 08/11/20 Rx release plecanatide 3 mg tablet 3 mg PO DAILY #30 tablet 06/14/20 08/11/20 R
[2020-08-11 09:08] VITALS: BP 122/76; PULSE 73; RESP 21; O2SAT 100
[2020-08-11 09:18] VITALS: BP 121/75; PULSE 75; RESP 21; O2SAT 100
[2020-08-11 09:28] VITALS: BP 109/93; PULSE 74; RESP 18; O2SAT 100
== END 2020-08-11 09:41 | disposition home or self-care (01) ==
PROVIDERS: PCP Internal Medicine; Visit Provider Internal Medicine Gastroenterology
PROC: 0DJD8ZZ Inspection of Lower Intestinal Tract, Via Natural or Artificial Opening Endoscopic (ICD-10-PCS; CPT 45378; principal; 2020-08-11 08:30)
DX: Z12.11 Encounter for screening for malignant neoplasm of colon (principal); D12.4 Benign neoplasm of descending colon; K63.5 Polyp of colon; R14.0 Abdominal distension (gaseous); K57.30 Diverticulosis of large intestine without perforation or abscess without bleeding; K62.5 Hemorrhage of anus and rectum; J44.9 Chronic obstructive pulmonary disease, unspecified; F32.9 Major depressive disorder, single episode, unspecified; K58.1 Irritable bowel syndrome with constipation; K21.9 Gastro-esophageal reflux disease without esophagitis; M16.12 Unilateral primary osteoarthritis, left hip; K27.9 Peptic ulcer, site unspecified, unspecified as acute or chronic, without hemorrhage or perforation; Z79.51 Long term (current) use of inhaled steroids; E03.9 Hypothyroidism, unspecified; F17.210 Nicotine dependence, cigarettes, uncomplicated
CPT/HCPCS: 45385; 88305; J2704; J7120

== ENCOUNTER 2020-08-16 10:10 | Emergency (ER) | payer OTHER, SELFPAY ==
--- NOTE | ~2020-08-16 | XR_ITS ---
EXAMINATION: XR foot LT min 3V EXAM DATE: 08/16/2020 10:41 INDICATION: Initial encounter following injury, with pain of the left foot, 1st and 2nd metatarsal re gion. Twisting injury. TECHNIQUE: Left foot dorsoplantar, lateral and oblique projections obtained and reviewed. Correlation is made to left 1st toe x-ray 12/16/2019. FINDINGS: Left metatarsal bones unremarkable. There are no acute fractures or dislocations identifi ed. There is no subcutaneous gas. The soft tissue is unremarkable. There are no radiopaque foreig n bodies. IMPRESSION: 1. XR foot LT min 3V exam without acute osseous findings. Reviewed, dictated and finalized at location A.
[2020-08-16 10:31] VITALS: BP 143/83; PULSE 89; RESP 16; TEMP 37.1; O2SAT 97
--- NOTE | 2020-08-16 11:12 | ED.LOWEXIN ---
HPI - Extremity Injury (Lower) General Chief Complaint: Extremity Injury, Lower Stated Complaint: left foot pain Source: patient and RN notes reviewed Limitations: no limitations History of Present Illness HPI Narrative: The patient, a smoker/drinker on several meds for COPD, presents with foot pain. Patient states over half week ago she twisted her left foot. She complains of mild pain and scant swelling of the distal, first metatarsals that is mild, worse with motion, better at rest. No bleeding, deformity, prior/pre-existing injury. Triage x-ray is normal Related Data Home Medications Medication Instructions Recorded Confirmed albuterol sulfate INHALATION 08/16/20 azelastine INTRANASAL 08/16/20 bupropion HCl PO 08/16/20 cetirizine mg 08/16/20 fluticasone propionate INTRANASAL 08/16/20 levothyroxine 08/16/20 mometasone-formoterol [Dulera] INHALATION 08/16/20 montelukast mg 08/16/20 omeprazole 08/16/20 tiotropium bromide [Spiriva with INHALATION 08/16/20 HandiHaler] Allergies Allergy/AdvReac Type Severity Reaction Status Date / Time alprazolam Allergy Unknown Swelling Verified 08/11/20 07:20 varenicline [From Chantix] AdvReac Intermediate nightmares, Verified 08/11/20 07:20 sleep walking Review of Systems Review of Systems: Narrative: General/Constitutional: No weight loss,fever Eyes: N0: Redness,discharge Ears/Nose/Throat: No: Epistaxis,ear discharge Respiratory: Denies: Hemoptysis Gastrointestinal: No Vomiting, Bleeding-rectal Skin: No Lumps, eruption Neurologic: No Focal Weakness,Sz Hematologic: Denies: Petechiae/Purpura Psychiatric: No: Suicida ideationl All Other Systems: Reviewed and Negative [facility] Past Medical History Medical History (Updated 08/16/20 @ 11:21 by Cristian Delgadillo MD) Bloating Bronchitis Carpal tunnel syndrome on both sides Carpal tunnel syndrome, bilateral Chronic back pain COPD (chronic obstructive pulmonary disease) Depression Diarrhea Emphysema of lung GERD (gastroesophageal reflux disease) Irritable bowel syndrome with constipation Migraines Nicotine dependence Osteoarthritis of left hip PUD (peptic ulcer disease) Serrated polyp of colon Serrated polyposis syndrome Surgical History Surgical History H/O Spinal surgery Lumbar spinal cage H/O tubal ligation History of carpal tunnel surgery History of shoulder surgery Left S/P endometrial ablation Family History Family History Father Malignant neoplasm of prostate Patient's father is Sibling Patient's sister is Mother Family history of malignant neoplasm Other Diabetes mellitus Family history of cardiovascular disease Hypertension Social History Social History Smoking packs per day: 1 Smoking cigarettes per day: 20.0 Years smoked: 45 Smoking pack-years: 45.00 Smoking status: Current every day smoker Tobacco type: cigarettes Second hand tobacco smoke exposure: No Alcohol intake: current Drinks per week: 10 Substance use: never Substance use type: does not use Gender identity (if verbalized by the patient): Female Spiritual care concerns: No Comments At time of signature, agree with nursing past medical, surgical, social and family history. There is no relevant family history pertinent to the presenting complaint Exam Narrative: Exam Narrative: General Appearance: Well appearing, Well nourished, No distress EYE: PERRLA, EOMI, Conjunctiva clear Ears: External ear normal, Auditory canal normal Nose: Normal nose, Nares clear Mouth/Throat: Normal appearing, Normal lips Neck: Supple Respiratory: Airway patent, No respiratory distress Musculoskeletal: Normal strength (mostly intact, limited flexion/extension by pain), Tenderness (distal firs
== END 2020-08-16 11:24 | disposition home or self-care (01) ==
PROVIDERS: Emergency Provider Emergency Medicine; PCP Internal Medicine
DX: M79.672 Pain in left foot (principal); S93.602A Unspecified sprain of left foot, initial encounter; X50.9XXA Other and unspecified overexertion or strenuous movements or postures, initial encounter; J44.9 Chronic obstructive pulmonary disease, unspecified; F32.9 Major depressive disorder, single episode, unspecified; K21.9 Gastro-esophageal reflux disease without esophagitis; M16.12 Unilateral primary osteoarthritis, left hip
CPT/HCPCS: 73630; 99213; G0463

== ENCOUNTER → 2020-08-29 06:52 | Outpatient (CLI) | payer OTHER, SELFPAY ==
[2020-08-30 18:26] LABS: SARS-CoV-2 RNA PCR Negative
== END ==
PROVIDERS: PCP Internal Medicine; Visit Provider Internal Medicine
DX: Z20.822 Contact with and (suspected) exposure to COVID-19 (principal); B34.9 Viral infection, unspecified
CPT/HCPCS: C9803; U0003; U0005

== ENCOUNTER 2020-10-30 10:07 | Emergency (ER) | payer OTHER, SELFPAY ==
--- NOTE | ~2020-10-30 | XR_ITS ---
EXAMINATION: XR knee RT min 4V DATE: 10/30/2020 10:47 INDICATION: Twisting right knee injury with generalized pain. TECHNIQUE: Anteroposterior, 2 oblique and crosstable lateral views of the right knee were obtained COMPARISON: None. FINDINGS: Alignment is normal. No fracture. Small to moderate-sized right knee joint effusion without layering lipohemarthrosis. Soft tissues are unremarkable. IMPRESSION: 1. Small to moderate right knee joint effusion. No osseous abnormality. Reviewed, dictated and finalized at location A.
[2020-10-30 10:17] VITALS: BP 142/73; PULSE 83; RESP 16; TEMP 36; O2SAT 98
--- NOTE | 2020-10-30 10:27 | ED.LOWEXIN ---
HPI - Extremity Injury (Lower) General Chief Complaint: Extremity Injury, Lower Stated Complaint: Right Knee Pain Time Seen by Provider: 10/30/20 10:27 Source: patient and RN notes reviewed Mode of arrival: ambulatory Limitations: no limitations History of Present Illness HPI Narrative: 54-year-old female presents to the [facility] with complaints of generalized right knee pain. States that she was camping yesterday and stepped over a mud puddle when she felt a pull in her knee. Minor swelling to the medial aspect of the right knee. Has full range of motion. Patient reports pain with walking or standing. No bruising noted. Positive pedal pulse. Sensation intact distal to injury. Capillary refill under 2 seconds. Requesting a work note because she works at [employer] and states it hurts too much just to stand MD complaint: knee injury (right knee) Related Data Home Medications Medication Instructions Recorded Confirmed albuterol sulfate INHALATION 10/30/20 azelastine INTRANASAL 10/30/20 cetirizine mg 10/30/20 fluticasone propionate INTRANASAL 10/30/20 levothyroxine 10/30/20 mometasone-formoterol [Dulera] INHALATION 10/30/20 omeprazole 10/30/20 Allergies Allergy/AdvReac Type Severity Reaction Status Date / Time alprazolam Allergy Unknown Swelling Verified 10/30/20 10:25 varenicline [From Chantix] AdvReac Intermediate nightmares, Verified 10/30/20 10:25 sleep walking Review of Systems Review of Systems: All systems reviewed & are unremarkable except as noted in HPI and below Constitutional: Constitutional: Reports no additional constitutional complaints, Denies chills and Denies fever(s) Cardiovascular: Cardiovascular: Reports no additional cardiovascular complaints and Denies chest pain Respiratory: Respiratory: Reports no additional respiratory complaints, Denies cough and Denies dyspnea Gastrointestinal: Gastrointestinal: Reports no additional gastrointestinal complaints, Denies abdominal pain, Denies nausea and Denies vomiting Musculoskeletal: Musculoskeletal: Reports as per HPI, Reports arthralgias (Right knee) and Reports joint swelling (Right knee) Integumentary/Breasts: Skin/Breast: Reports system reviewed and no additional complaints, except as docu, Denies pruritus and Denies rash Neurologic: Reports system reviewed and no additional complaints, except as documented, Denies dizziness, Denies headache(s), Denies focal weakness, Denies numbness and Denies weakness Psychiatric: Psychiatric: Reports no additional psychiatric complaints Allergic/Immunologic: Allergic/Immunologic: Reports no additional allergic/immunologic complaints [facility] Past Medical History Medical History Bloating Bronchitis Carpal tunnel syndrome on both sides Carpal tunnel syndrome, bilateral Chronic back pain COPD (chronic obstructive pulmonary disease) Depression Diarrhea Emphysema of lung GERD (gastroesophageal reflux disease) Irritable bowel syndrome with constipation Migraines Nicotine dependence Osteoarthritis of left hip PUD (peptic ulcer disease) Serrated polyp of colon Serrated polyposis syndrome Surgical History Surgical History H/O Spinal surgery Lumbar spinal cage H/O tubal ligation History of carpal tunnel surgery History of shoulder surgery Left S/P endometrial ablation Family History Family History Father Malignant neoplasm of prostate Patient's father is Sibling Patient's sister is Mother Family history of malignant neoplasm Other Diabetes mellitus Family history of cardiovascular disease Hypertension Social History Social History Smoking packs per day: 1 Smoking cigarettes per day: 20.0 Years smoked: 45 Smoking pack-years: 45.00 Smok
== END 2020-10-30 11:20 | disposition home or self-care (01) ==
PROVIDERS: Emergency Provider Nurse Practitioner; PCP Internal Medicine
DX: M25.461 Effusion, right knee (principal); S83.91XA Sprain of unspecified site of right knee, initial encounter; X50.9XXA Other and unspecified overexertion or strenuous movements or postures, initial encounter; J44.9 Chronic obstructive pulmonary disease, unspecified; F32.9 Major depressive disorder, single episode, unspecified; K21.9 Gastro-esophageal reflux disease without esophagitis; M16.12 Unilateral primary osteoarthritis, left hip; F17.210 Nicotine dependence, cigarettes, uncomplicated
CPT/HCPCS: 73564; 99213; G0463

== ENCOUNTER 2021-04-17 15:14 | Outpatient (CLI) | payer OTHER, SELFPAY ==
--- NOTE | ~2021-04-17 | XR_ITS ---
EXAMINATION: XR chest 2V DATE: 04/17/2021 15:39 INDICATION: Cough. Right lower chest pain with inspiration. TECHNIQUE: PA and lateral views of the chest were obtained. COMPARISON: Chest radiograph dated 06/23/[address] dated 11/02/2019 FINDINGS: Emphysema with bullous changes at multiple proximal scarring at the bilateral apices. Linear discoid atelectasis/scarring at the left costophrenic angle. Nipple shadow projects over the right lower lung zone. No pulmonary edema, pleural effusion or pneumothorax. Cardiomediastinal silhouette is normal. Mild lower thoracic levocurvature with mild to moderate spondylosis. Multiple small calcified nodule at the spleen calcified mediastinal and left hilar lymph nodes consistent with old granulomatous dise ase. IMPRESSION: 1. Mild emphysema. No acute cardiopulmonary disease. Reviewed, dictated and finalized at location B. [employer]
== END 2021-04-17 15:15 | disposition home or self-care (01) ==
LOC: ANHIMG 15:20
PROVIDERS: PCP Internal Medicine; Visit Provider Physician Assistant
DX: R05.9 Cough, unspecified (principal); J43.9 Emphysema, unspecified
CPT/HCPCS: 71046

== ENCOUNTER → 2021-04-18 08:08 | Outpatient (CLI) | payer OTHER, SELFPAY ==
[2021-04-18 20:26] LABS: SARS-CoV-2 RNA PCR Negative
== END ==
PROVIDERS: PCP Internal Medicine; Visit Provider Physician Assistant
DX: R68.89 Other general symptoms and signs (principal); Z20.822 Contact with and (suspected) exposure to COVID-19
CPT/HCPCS: C9803; U0003; U0005

== ENCOUNTER 2021-05-23 11:22 | Emergency (ER) | payer OTHER, SELFPAY ==
--- NOTE | ~2021-05-23 | XR_ITS ---
EXAMINATION: XR chest 2V EXAM DATE: 05/23/2021 12:31 INDICATION: Sometimes prod cough short of breath. TECHNIQUE: Frontal and lateral projections of the chest obtained and reviewed. Comparison is made to prior examination from 04/17/2021. FINDINGS: Small biapical scarring. The lungs are otherwise clear. There are no pleural effusions. The cardiomediastinal silhouette is within normal limits. There is no pneumothorax suspected. Mild lower thoracic levoscoliosis. IMPRESSION: No acute cardiopulmonary findings. Reviewed, dictated and finalized at location A. [facility]
[2021-05-23 11:30] VITALS: BP 164/92; PULSE 87; RESP 16; TEMP 36.7; O2SAT 99
--- NOTE | 2021-05-23 12:20 | ED.URI ---
HPI - URI/Sore Throat General Chief Complaint: Upper Respiratory Infection Stated Complaint: congestion Time Seen by Provider: 05/23/21 12:15 Source: patient and RN notes reviewed Mode of arrival: ambulatory Limitations: no limitations History of Present Illness HPI Narrative: Patient presents today with an 8-day history of cough that has been productive over the past 2 days with green and richard sputum. Reports intermittent shortness of breath and wheezing with a fever with a T-max of 102.1. History of COPD. She has been using TheraFlu, Excedrin Migraine, and nebulizer treatments with mild relief. Patient similar symptoms in April and was prescribed a Z-Dutch and prednisone on April 20. Patient had a negative rapid COVID-19 test on 05/19/2021 and a PCR test was sent off, but she does not yet have the results. MD elicited complaint: cough Related Data Home Medications Medication Instructions Recorded Confirmed albuterol sulfate 2 inh INHALATION DIRECTED 10/30/20 05/23/21 mometasone-formoterol [Dulera] 1 inh INHALATION DAILY 10/30/20 05/23/21 Allergies Allergy/AdvReac Type Severity Reaction Status Date / Time alprazolam Allergy Unknown Swelling Verified 05/23/21 12:06 varenicline [From Chantix] AdvReac Intermediate nightmares, Verified 05/23/21 12:06 sleep walking Review of Systems Review of Systems: CONSTITUTIONAL: Denies body aches, chills, or sweats.+ Fever EYES: Denies visual changes, redness, or discharge. ENT: Denies rhinorrhea, congestion, sore throat, or otalgia. CARDIOVASCULAR: Denies chest pain, palpitations, or edema. RESPIRATORY: + Cough, shortness of breath, wheezing GASTROINTESTINAL: Denies abdominal pain, nausea, vomiting, or diarrhea. GENITOURINARY: Denies dysuria or hematuria. SKIN: Denies rash, itching, or wounds. MUSCULOSKELETAL: Denies back pain, joint pain, or myalgia. NEUROLOGIC: Denies numbness, tingling, or weakness.+ Headache PSYCH: Denies depression or anxiety. [facility] Past Medical History Medical History Bloating Bronchitis Carpal tunnel syndrome on both sides Carpal tunnel syndrome, bilateral Chronic back pain COPD (chronic obstructive pulmonary disease) Depression Diarrhea Emphysema of lung GERD (gastroesophageal reflux disease) Hypersomnolence Irritable bowel syndrome with constipation Migraines Nicotine dependence Osteoarthritis of left hip PUD (peptic ulcer disease) Serrated polyp of colon Serrated polyposis syndrome Surgical History Surgical History H/O Spinal surgery Lumbar spinal cage H/O tubal ligation History of carpal tunnel surgery History of shoulder surgery Left S/P endometrial ablation Family History Family History Father Malignant neoplasm of prostate Patient's father is Sibling Patient's sister is Mother Family history of malignant neoplasm Other Diabetes mellitus Family history of cardiovascular disease Hypertension Social History Social History Smoking packs per day: 1 Smoking cigarettes per day: 20.0 Years smoked: 45 Smoking pack-years: 45.00 Smoking status: Current every day smoker Tobacco type: cigarettes Second hand tobacco smoke exposure: No Alcohol intake: current Drinks per week: 10 Substance use: never Substance use type: does not use Gender identity (if verbalized by the patient): Female Spiritual care concerns: No Comments At time of signature, I have reviewed and agree with nursing past medical, surgical, social and family history unless otherwise noted. Please see nursing chart for further information. There is no relevant family history pertinent to the presenting complaint Exam Narrative: GENERAL: Mildly ill-harsha
== END 2021-05-23 12:56 | disposition home or self-care (01) ==
PROVIDERS: Emergency Provider Nurse Practitioner; PCP Internal Medicine
DX: J44.1 Chronic obstructive pulmonary disease with (acute) exacerbation (principal); J06.9 Acute upper respiratory infection, unspecified; F17.210 Nicotine dependence, cigarettes, uncomplicated; K21.9 Gastro-esophageal reflux disease without esophagitis; M16.12 Unilateral primary osteoarthritis, left hip
CPT/HCPCS: 71046; 99213; G0463

== ENCOUNTER 2021-06-20 16:31 | Emergency (ER) | payer OTHER, SELFPAY ==
[2021-06-20 16:50] VITALS: BP 136/85; PULSE 105; RESP 16; TEMP 37.1; O2SAT 98
[2021-06-20 16:57] VITALS: BP 136/85; PULSE 105; RESP 16; TEMP 37.1; O2SAT 98
--- NOTE | 2021-06-20 17:11 | ED.BACK ---
HPI - Back Pain/Injury General Chief Complaint: Back Pain/Injury Stated Complaint: back pain Time Seen by Provider: 06/20/21 17:13 Source: patient Mode of arrival: ambulatory Limitations: no limitations History of Present Illness HPI Narrative: 55-year-old female presented for complaints of lower back pain worsening over the past week. Denies new injury. States muscles to low back hurt and it shoots up her back and down to her hips. It is affecting her sleep. Has been alternating ice and heat, taking Aleve and ibuprofen. Endorses pain is worse today. She endorses a history of chronic back pain and has had a cage placed at L5 about [address] Nichols in [place]. States since he retired she has not been able to find another back doctor. States she follows with PCP and is scheduled with pain management in August. Related Data Home Medications Medication Instructions Recorded Confirmed albuterol sulfate 2 inh INHALATION DIRECTED 10/30/20 06/20/21 mometasone-formoterol [Dulera] 1 inh INHALATION DAILY 10/30/20 06/20/21 Allergies Allergy/AdvReac Type Severity Reaction Status Date / Time alprazolam Allergy Unknown Swelling Verified 06/20/21 16:48 varenicline [From Chantix] AdvReac Intermediate nightmares, Verified 06/20/21 16:48 sleep walking Review of Systems Review of Systems: CONSTITUTIONAL: Denies body aches, fever, chills, or sweats. EYES: Denies visual changes, redness, or discharge. ENT: Denies rhinorrhea, congestion, sore throat, or otalgia. CARDIOVASCULAR: Denies chest pain, palpitations, or edema. RESPIRATORY: Denies cough or dyspnea. GASTROINTESTINAL: Denies abdominal pain, nausea, vomiting, or diarrhea. GENITOURINARY: Denies dysuria or hematuria. SKIN: Denies rash, itching, or wounds. MUSCULOSKELETAL:Endorses low back pain NEUROLOGIC: Denies headache, numbness, tingling, or weakness to extremities. PSYCH: Denies depression or anxiety. All systems reviewed & are unremarkable except as noted in HPI and below PMFSH Past Medical History Medical History Bloating Bronchitis Carpal tunnel syndrome on both sides Carpal tunnel syndrome, bilateral Chronic back pain COPD (chronic obstructive pulmonary disease) Depression Diarrhea Emphysema of lung GERD (gastroesophageal reflux disease) Hypersomnolence Irritable bowel syndrome with constipation Migraines Nicotine dependence Osteoarthritis of left hip PUD (peptic ulcer disease) Serrated polyp of colon Serrated polyposis syndrome Surgical History Surgical History H/O Spinal surgery Lumbar spinal cage H/O tubal ligation History of carpal tunnel surgery History of shoulder surgery Left S/P endometrial ablation Family History Family History Father Malignant neoplasm of prostate Patient's father is Sibling Patient's sister is Mother Family history of malignant neoplasm Other Diabetes mellitus Family history of cardiovascular disease Hypertension Social History Social History Smoking packs per day: 1 Smoking cigarettes per day: 20.0 Years smoked: 45 Smoking pack-years: 45.00 Smoking status: Current every day smoker Tobacco type: cigarettes Second hand tobacco smoke exposure: No Alcohol intake: current Drinks per week: 10 Substance use: never Substance use type: does not use Gender identity (if verbalized by the patient): Female Spiritual care concerns: No Comments At time of signature, I have reviewed and agree with nursing past medical, surgical, social and family history unless otherwise noted. Please see nursing chart for further information. There is no relevant family history pertinent to the presenting complaint Exam Narrative:
== END 2021-06-20 17:29 | disposition home or self-care (01) ==
PROVIDERS: Emergency Provider Nurse Practitioner Family; PCP Internal Medicine
DX: M54.50 Low back pain, unspecified (principal); F17.210 Nicotine dependence, cigarettes, uncomplicated; J44.9 Chronic obstructive pulmonary disease, unspecified; K21.9 Gastro-esophageal reflux disease without esophagitis; M16.12 Unilateral primary osteoarthritis, left hip; F32.A Depression, unspecified
CPT/HCPCS: 99213; G0463

== ENCOUNTER 2021-06-27 09:17 | Emergency (ER) | payer OTHER, SELFPAY ==
[2021-06-27 09:27] VITALS: BP 133/84; PULSE 97; RESP 16; TEMP 36.6; O2SAT 98
--- NOTE | 2021-06-27 09:40 | ED.URI ---
HPI - URI/Sore Throat General Chief Complaint: Upper Respiratory Infection Stated Complaint: Throat/Ear pain Time Seen by Provider: 06/27/21 09:41 Source: patient Mode of arrival: ambulatory Limitations: no limitations History of Present Illness HPI Narrative: 55 yo F with hx of COPD presents with c/o nasal congestion, bilateral ear pain, sinus pain, cough, chest contgestion, some wheezing at night for past week. no fever. was seen at another urgent care yesterday and had neg covid test. States her throat has been very painful and is having difficulty swallowing due to swelling. was going to schedule appt with PCP but will do video chat only and wants someone to look at her throat. some SOB with exertion. neb machine is not working. has called pulmonology office and left message. All systems reviewed and negative except as noted above. Related Data Home Medications Medication Instructions Recorded Confirmed albuterol sulfate 2 inh INHALATION DIRECTED 10/30/20 06/20/21 mometasone-formoterol [Dulera] 1 inh INHALATION DAILY 10/30/20 06/20/21 Allergies Allergy/AdvReac Type Severity Reaction Status Date / Time alprazolam Allergy Unknown Swelling Verified 06/20/21 16:48 varenicline [From Chantix] AdvReac Intermediate nightmares, Verified 06/20/21 16:48 sleep walking Review of Systems Review of Systems: All systems reviewed & are unremarkable except as noted in HPI and below Constitutional: Constitutional: Reports as per HPI Eyes: Eyes: Reports as per HPI ENT: Reports nasal congestion, Reports sinus pain and Reports sinus pressure Cardiovascular: Cardiovascular: Reports as per HPI Respiratory: Respiratory: Reports chest congestion, Reports cough and Reports wheezing Gastrointestinal: Gastrointestinal: Reports as per HPI Musculoskeletal: Musculoskeletal: Reports as per HPI Integumentary/Breasts: Skin/Breast: Reports as per HPI Neurologic: Reports as per HPI Psychiatric: Psychiatric: Reports as per HPI Endocrine: Endocrine: Reports as per HPI Hematologic/Lymphatic: Hematologic/Lymphatic: Reports as per HPI Allergic/Immunologic: Allergic/Immunologic: Reports as per HPI [facility] Past Medical History Medical History Bloating Bronchitis Carpal tunnel syndrome on both sides Carpal tunnel syndrome, bilateral Chronic back pain COPD (chronic obstructive pulmonary disease) Depression Diarrhea Emphysema of lung GERD (gastroesophageal reflux disease) Hypersomnolence Irritable bowel syndrome with constipation Migraines Nicotine dependence Osteoarthritis of left hip PUD (peptic ulcer disease) Serrated polyp of colon Serrated polyposis syndrome Surgical History Surgical History H/O Spinal surgery Lumbar spinal cage H/O tubal ligation History of carpal tunnel surgery History of shoulder surgery Left S/P endometrial ablation Family History Family History Father Malignant neoplasm of prostate Patient's father is Sibling Patient's sister is Mother Family history of malignant neoplasm Other Diabetes mellitus Family history of cardiovascular disease Hypertension Social History Social History Smoking packs per day: 1 Smoking cigarettes per day: 20.0 Years smoked: 45 Smoking pack-years: 45.00 Smoking status: Current every day smoker Tobacco type: cigarettes Second hand tobacco smoke exposure: No Alcohol intake: current Drinks per week: 10 Substance use: never Substance use type: does not use Gender identity (if verbalized by the patient): Female Spiritual care concerns: No Comments At time of signature, agree with nursing past medical, surgical, social and family history. There is no relevant family h
== END 2021-06-27 10:30 | disposition home or self-care (01) ==
PROVIDERS: Emergency Provider Nurse Practitioner Family; PCP Internal Medicine
DX: J44.1 Chronic obstructive pulmonary disease with (acute) exacerbation (principal); J02.9 Acute pharyngitis, unspecified; R09.81 Nasal congestion; F17.210 Nicotine dependence, cigarettes, uncomplicated; K21.9 Gastro-esophageal reflux disease without esophagitis; M16.12 Unilateral primary osteoarthritis, left hip
CPT/HCPCS: 87081; 87880; 99213; G0463

== ENCOUNTER 2021-09-19 00:45 | Day surgery (SDC) | payer OTHER, SELFPAY ==
[2021-08-30 14:42] VITALS: BMI 25.8
[2021-09-19 11:49] VITALS: BP 145/91; PULSE 99; RESP 18; TEMP 36.9; O2SAT 97
[2021-09-19] MEDS: LACTATED RINGERS 1,000 ML 150 ML IV CONT (11:51)
--- NOTE | 2021-09-19 12:00 | WPDANESEPPF ---
Anes - Initial Pre Proc Eval Procedure: Operation Date: 09/19/21 13:00 Proposed Procedures p Screening Colonoscopy - David Sanderson MD Date/Time: 09/19/21 12:00 Surgeon: David Sanderson MD Pre Op Diagnosis: neoplasm screening, hx of colon polyps Patient Data Age: 55 Gender: F Height: 1.73 m Weight: 76.3 kg Last Vital Signs Temp 98.4 F 09/19/21 11:49 Pulse 99 09/19/21 11:49 Resp 18 09/19/21 11:49 BP 145/91 H 09/19/21 11:49 Pulse Ox 97 09/19/21 11:49 Allergies Allergy/AdvReac Type Severity Reaction Status Date / Time alprazolam Allergy Unknown Swelling Verified 09/19/21 11:48 varenicline [From Chantix] AdvReac Intermediate nightmares, Verified 09/19/21 11:48 sleep walking Home Medications Medication Instructions Recorded Confirmed Type albuterol sulfate 2 inh INHALATION DIRECTED 10/30/20 09/19/21 History albuterol sulfate 2.5 mg INHALATION Q4-6H PRN #90 ml 04/09/21 09/19/21 Rx nebulizer accessories #1 ea 04/09/21 09/19/21 Rx montelukast 10 mg tablet 10 mg PO DAILY #30 tablet 05/25/21 09/19/21 Rx levothyroxine 25 mcg tablet 25 mcg PO DAILY #90 tablet 06/05/21 09/19/21 Rx cyclobenzaprine 10 mg PO TID PRN #15 tablet 06/20/21 09/19/21 Rx benzonatate 200 mg PO TID PRN #20 cap 06/27/21 09/19/21 Rx cetirizine 10 mg tablet 10 mg PO QHS #30 tablet 07/02/21 09/19/21 Rx tiotropium bromide 18 mcg capsule 1 cap INHALATION DAILY #30 cap 08/20/21 09/19/21 Rx with inhalation device fluticasone propionate 50 2 spray INTRANASAL DAILY #16 g 08/22/21 09/19/21 Rx mcg/actuation nasal spray,suspension gabapentin 300 mg PO BID 08/30/21 09/19/21 History mometasone-formoterol HFA 100 See Rx Instructions .ROUTE 08/31/21 09/19/21 Rx mcg-5 mcg/actuation aerosol inhaler .COMPLEX #13 each azelastine 137 mcg (0.1 %) nasal 2 spray INTRANASAL BID #30 ml 09/09/21 09/19/21 Rx spray aerosol Patient hx anesthesia problems: none Family hx anesthesia problems: none Results Review: All pre-operative results and documents have been reviewed as part of the pre-operative evaluation. [facility] Past Medical History Medical History Bloating Bronchitis Carpal tunnel syndrome on both sides Carpal tunnel syndrome, bilateral Chronic back pain COPD (chronic obstructive pulmonary disease) Depression Diarrhea Emphysema of lung GERD (gastroesophageal reflux disease) Hypersomnolence Irritable bowel syndrome with constipation Migraines Nicotine dependence Osteoarthritis of left hip PUD (peptic ulcer disease) Serrated polyp of colon Serrated polyposis syndrome Surgical History Surgical History H/O Spinal surgery Lumbar spinal cage H/O tubal ligation History of carpal tunnel surgery History of shoulder surgery Left S/P endometrial ablation Family History Family History Father Malignant neoplasm of prostate Patient's father is Sibling Patient's sister is Mother Family history of malignant neoplasm Other Diabetes mellitus Family history of cardiovascular disease Hypertension Social History Social History Smoking packs per day: 1 Smoking cigarettes per day: 20.0 Years smoked: 43 Smoking pack-years: 43.00 Smoking status: Current every day smoker Tobacco type: cigarettes Second hand tobacco smoke exposure: No Alcohol intake: current Drinks per week: 2 Substance use: never Substance use type: does not use Living arrangements: with family Gender identity (if verbalized by the patient): Female Spiritual care concerns: No Anes - Eval Final PreProcedure Day of Procedure 09/19/21 12:00 Patient weight: normal Heart: regular rate and rhythm Airway: Mallampati scale class II Neur
--- NOTE | 2021-09-19 12:19 | PM.HPGS ---
History of Present Illness History of Present Illness Consent: Risks, benefits, and alternatives have been discussed and questions answered. Patient agrees to proceed with procedure. Chief complaint: neoplasm screening, hx of colon polyps Narrative: Destini Watts is a 55 year old female with serrated polyposis syndrome, last colonoscopy 1 year ago. Review of Systems Constitutional: Constitutional: Denies headache(s) and Denies weakness Eyes: Eyes: Denies blurry vision ENT: Reports Normal hearing present, Denies headache(s) and Denies neck pain Cardiovascular: Cardiovascular: Denies chest pain and Denies dyspnea Respiratory: Respiratory: Denies dyspnea Gastrointestinal: Gastrointestinal: Reports no additional gastrointestinal complaints Genitourinary: Genitourinary: Denies dysuria Musculoskeletal: Musculoskeletal: Denies neck pain Integumentary/Breasts: Skin/Breast: Denies dry skin Neurologic: Reports Normal hearing present, Denies headache(s) and Denies weakness Psychiatric: Psychiatric: Denies anxiety Endocrine: Endocrine: Denies change in body appearance Hematologic/Lymphatic: Hematologic/Lymphatic: Denies easy bleeding Allergic/Immunologic: Allergic/Immunologic: Denies urticaria PMFSH Past Medical History Medical History Bloating Bronchitis Carpal tunnel syndrome on both sides Carpal tunnel syndrome, bilateral Chronic back pain COPD (chronic obstructive pulmonary disease) Depression Diarrhea Emphysema of lung GERD (gastroesophageal reflux disease) Hypersomnolence Irritable bowel syndrome with constipation Migraines Nicotine dependence Osteoarthritis of left hip PUD (peptic ulcer disease) Serrated polyp of colon Serrated polyposis syndrome Surgical History Surgical History H/O Spinal surgery Lumbar spinal cage H/O tubal ligation History of carpal tunnel surgery History of shoulder surgery Left S/P endometrial ablation Family History Family History Father Malignant neoplasm of prostate Patient's father is Sibling Patient's sister is Mother Family history of malignant neoplasm Other Diabetes mellitus Family history of cardiovascular disease Hypertension Social History Social History Smoking packs per day: 1 Smoking cigarettes per day: 20.0 Years smoked: 43 Smoking pack-years: 43.00 Smoking status: Current every day smoker Tobacco type: cigarettes Second hand tobacco smoke exposure: No Alcohol intake: current Drinks per week: 2 Substance use: never Substance use type: does not use Living arrangements: with family Gender identity (if verbalized by the patient): Female Spiritual care concerns: No Meds Home Medications and Allergies Home Medications Medication Instructions Recorded Confirmed Type albuterol sulfate 2 inh INHALATION DIRECTED 10/30/20 09/19/21 History albuterol sulfate 2.5 mg INHALATION Q4-6H PRN #90 ml 04/09/21 09/19/21 Rx nebulizer accessories #1 ea 04/09/21 09/19/21 Rx montelukast 10 mg tablet 10 mg PO DAILY #30 tablet 05/25/21 09/19/21 Rx levothyroxine 25 mcg tablet 25 mcg PO DAILY #90 tablet 06/05/21 09/19/21 Rx cyclobenzaprine 10 mg PO TID PRN #15 tablet 06/20/21 09/19/21 Rx benzonatate 200 mg PO TID PRN #20 cap 06/27/21 09/19/21 Rx cetirizine 10 mg tablet 10 mg PO QHS #30 tablet 07/02/21 09/19/21 Rx tiotropium bromide 18 mcg capsule 1 cap INHALATION DAILY #30 cap 08/20/21 09/19/21 Rx with inhalation device fluticasone propionate 50 2 spray INTRANASAL DAILY #16 g 08/22/21 09/19/21 Rx mcg/actuation nasal spray,suspension gabapentin 300 mg PO BID 08/30/21 09/19/21 History mometasone-formoterol HFA 100 See Rx Instructions .ROUTE 08/31/21 09/19/21 Rx m
[2021-09-19 12:54] VITALS: BP 124/84; PULSE 79; RESP 18; O2SAT 96
[2021-09-19 13:04] VITALS: BP 157/99; PULSE 78; RESP 23; O2SAT 96
[2021-09-19 13:14] VITALS: BP 169/101; PULSE 81; RESP 23; O2SAT 96
== END 2021-09-19 13:20 | disposition home or self-care (01) ==
PROVIDERS: PCP Internal Medicine; Visit Provider Internal Medicine Gastroenterology
PROC: 0DJD8ZZ Inspection of Lower Intestinal Tract, Via Natural or Artificial Opening Endoscopic (ICD-10-PCS; CPT 45378; principal; 2021-09-19 13:00)
DX: D12.2 Benign neoplasm of ascending colon (principal); D12.3 Benign neoplasm of transverse colon; K63.5 Polyp of colon; K57.30 Diverticulosis of large intestine without perforation or abscess without bleeding; K64.8 Other hemorrhoids; K44.9 Diaphragmatic hernia without obstruction or gangrene; K58.1 Irritable bowel syndrome with constipation; K21.9 Gastro-esophageal reflux disease without esophagitis; F32.9 Major depressive disorder, single episode, unspecified; Z87.11 Personal history of peptic ulcer disease; F17.210 Nicotine dependence, cigarettes, uncomplicated; Z79.51 Long term (current) use of inhaled steroids
CPT/HCPCS: 45385; 88305; J2704; J7120

== ENCOUNTER 2021-12-20 08:36 | Outpatient (CLI) | payer OTHER, SELFPAY ==
--- NOTE | 2022-01-08 21:21 | WPDHOMESLEEP ---
Sleep Study - Home Unattended Date of Study: 12/20/21 Ordering Provider: KHADAR Jaquez Interpreting Provider: Letha Mina, DO Home Sleep Study Type: Apnea Link Air Height: 1.73 m Weight: 79.379 kg Body Mass Index: 26.6 Neck Circumference (inches): 14.25 [place]: 6 Reason for Sleep Study Snoring, waking up gasping Sleep History The patient is a 56-year-old female with COPD, chronic back pain, hypothyroidism, depression, migraines, irritable bowel syndrome and tobacco abuse that had a sleep study ordered the pulmonary office for evaluation of sleep apnea. The patient rarely awakens from sleep short of breath. She constantly awakens at night with heartburn, belching or cough. She constantly snores and frequently snores loudly enough that others complain. She constantly has trouble sleeping when she has a cold. She occasionally wakes up gasping for air throughout the night. She denies having breathing problems at night observed by herself or others. She frequently sweats excessively at night. She rarely has heart palpitations or irregular heartbeats during the night. He occasionally falls asleep during the day but never while driving. He denies sleep paralysis, cataplexy and hypnagogic / hypnopompic hallucinations. She occasionally has trouble at school or work due to sleepiness. She denies feeling afraid of point to sleep. She rarely has nightmares. She rarely remembers her dreams. She frequently has thoughts racing through her mind. She occasionally feels sad or depressed. She constantly has anxiety. She constantly has muscular tension. She rarely notices parts of her body jerk. She denies kicking during the night. She frequently has crawling and aching feelings in her legs and frequently has leg pain during the night. She denies grinding her teeth during sleep and awakening with morning jaw pain. She is constantly bothered by pain during the day and frequently awakened by pain during the night. She occasionally wakes up feeling stiff in the morning. She frequently wakes up with sore or achy muscles. She constantly wakes up with pain in the neck, spine or other joints. She goes to bed between 10:30-11 p.m. on both weekdays and weekends. It takes her 1-2 hours to fall asleep. She wakes up 1-2 times throughout the night to use the restroom. It takes her 30 minutes to an hour to fall back asleep. She wakes up between 630-7 a.m. on both weekdays and weekends. She typically gets 6-7 hours of sleep per night. She will stay in bed for 5 minutes after waking up in the morning. She currently lives with her . She does not consume any caffeinated beverages within 2 hours of bedtime. She does not engage in physical exercise before bedtime. She denies reading and watching television before falling asleep. She denies taking naps in the afternoon or the evening. She drinks 2 caffeinated beverages per day. She will drink alcohol on the weekend. She currently smokes 1 pack of cigarettes per day. She denies recreational drug use. [facility] Past Medical History Medical History Bloating Bronchitis Carpal tunnel syndrome on both sides Carpal tunnel syndrome, bilateral Chronic back pain COPD (chronic obstructive pulmonary disease) Depression Diarrhea Emphysema of lung GERD (gastroesophageal reflux disease) Hypersomnolence Irritable bowel syndrome with constipation Migraines Nicotine dependence Osteoarthritis of left hip PUD (peptic ulcer disease) Serrated polyp of colon Serrated polyposis syndrome Surgical History Surgical History H/O Spinal surgery Lumbar spinal cage H/O tubal ligation History of carpal tunnel surgery History of shoulder surgery Left S/P endometrial ablation Family History Family History Father Malignant jie
[2022-01-08 21:23] VITALS: BMI 26.6
== END 2021-12-21 09:50 | disposition home or self-care (01) ==
LOC: ANHCSM 08:38
PROVIDERS: PCP Internal Medicine; Visit Provider Physician Assistant
DX: G47.33 Obstructive sleep apnea (adult) (pediatric) (principal); G47.10 Hypersomnia, unspecified
CPT/HCPCS: 95806

== ENCOUNTER 2022-02-21 09:11 | Outpatient (CLI) | payer OTHER, SELFPAY ==
--- NOTE | ~2022-02-21 | US_ITS ---
EXAMINATION: US venous doppler [facility] DATE: 02/21/2022 09:51 INDICATION: Left lower limb swelling. TECHNIQUE: Grayscale ultrasound images without and with compression and Doppler ultrasound images of the left lower extremity veins were obtained. COMPARISON: None. FINDINGS: The visualized portions of left common femoral vein, profunda (deep) femoral vein, femoral vein, popl iteal vein, peroneal veins, posterior tibial veins, and greater saphenous vein outflow are patent. IMPRESSION: 1. No deep venous thrombosis. Reviewed, dictated and finalized at location A.
== END 2022-02-21 09:12 | disposition home or self-care (01) ==
PROVIDERS: PCP Internal Medicine; Visit Provider Orthopaedic Surgery
DX: I82.409 Acute embolism and thrombosis of unspecified deep veins of unspecified lower extremity (principal)
CPT/HCPCS: 93971

== ENCOUNTER 2022-08-07 12:24 | Outpatient (CLI) | payer OTHER, SELFPAY ==
--- NOTE | ~2022-08-07 | XR_ITS ---
Clinical Indication: COPD, cough PA and lateral views of the chest: Comparison: 05/23/2021 Findings: The lungs are clear, without evidence of focal consolidation or pleural effusion. COPD antonia yoel present. Cardiomediastinal silhouette is within normal limits. Bones and soft tissues are unremar kable. Impression: COPD. Clear lungs. Reviewed, dictated and finalized at location . Impression: COPD. Clear lungs.
== END 2022-08-07 12:25 | disposition home or self-care (01) ==
PROVIDERS: PCP Internal Medicine; Visit Provider Physician Assistant
DX: J44.1 Chronic obstructive pulmonary disease with (acute) exacerbation (principal)
CPT/HCPCS: 71046

== ENCOUNTER 2022-08-12 10:04 | Outpatient (CLI) | payer OTHER, SELFPAY ==
--- NOTE | ~2022-08-12 | CT_ITS ---
EXAMINATION: CT lung screening DATE: 08/12/2022 10:19 INDICATION: Personal history of nicotine dependence, current smoker with 40 pack year history TECHNIQUE: Computed tomography (CT) of the chest was performed without intravenous contrast. The dose -length product (DLP) was 84.16 mGy-cm. 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 COMPARISON: 11/02/2019 FINDINGS: There is moderate emphysema. Again noted is a stable 7 mm groundglass nodule of the right u pper lobe. There is a stable 4 mm nodule of the left upper lobe. There is mild dependent atelectasis. A calcified nodule of the left upper lobe is consistent with old granulomatous disease. No pathologi ty enlarged thoracic lymph nodes are identified. The heart size is normal. Calcified coronary elver ry atherosclerosis is noted. Punctate calcifications in an otherwise normal spleen likely represent h ealed granulomatous disease. There is moderate thoracic spondylosis. IMPRESSION: 1. Lung-RADS category 2: Benign appearance or behavior. Continue annual screening with noncontrast lo w-dose chest CT in 12 months. Reviewed, dictated and finalized at location B. IMPRESSION: 1. Lung-RADS category 2: Benign appearance or behavior. Continue annual screeni ng with noncontrast low-dose chest CT in 12 months.
== END 2022-08-12 10:05 | disposition home or self-care (01) ==
LOC: ANHIMG 10:05
PROVIDERS: PCP Internal Medicine; Visit Provider Physician Assistant
DX: Z12.2 Encounter for screening for malignant neoplasm of respiratory organs (principal); F17.210 Nicotine dependence, cigarettes, uncomplicated
CPT/HCPCS: 71271

== ENCOUNTER 2022-12-19 00:29 | Day surgery (SDC) | payer OTHER, SELFPAY ==
[2022-12-12 10:13] VITALS: BMI 23.4
[2022-12-19 06:24] VITALS: BP 113/74; PULSE 71; RESP 17; TEMP 36.3; O2SAT 96; BMI 22.4
[2022-12-19] MEDS: LACTATED RINGERS 1,000 ML 150 ML IV CONT (06:33)
--- NOTE | 2022-12-19 07:25 | WPDANESEPPF ---
Anes - Initial Pre Proc Eval Procedure: Operation Date: 12/19/22 07:30 Proposed Procedures p Colonoscopy - David Sanderson MD Date/Time: 12/19/22 07:25 Surgeon: David Sanderson MD Pre Op Diagnosis: serrated polyposis syndrome Patient Data Age: 57 Gender: F Height: 1.73 m Weight: 67 kg Last Vital Signs Temp 97.4 F L 12/19/22 06:24 Pulse 71 12/19/22 06:24 Resp 17 12/19/22 06:24 BP 113/74 12/19/22 06:24 Pulse Ox 96 12/19/22 06:24 O2 Del Method Room Air 12/19/22 06:24 Allergies Allergy/AdvReac Type Severity Reaction Status Date / Time alprazolam Allergy Unknown Swelling Verified 12/19/22 06:23 varenicline [From Chantix] AdvReac Intermediate nightmares, Verified 12/19/22 06:23 sleep walking Home Medications Medication Instructions Recorded Confirmed Type nebulizer accessories #1 ea 04/09/21 12/19/22 Rx albuterol sulfate 2.5 mg/3 mL 2.5 mg (3 mL) inhalation Q4-6H PRN 10/09/21 12/19/22 Rx (0.083 %) solution for nebulization shortness of breath or wheezing #90 mL albuterol sulfate 90 mcg/actuation See Rx Instructions .Route 12/10/21 12/19/22 Rx aerosol inhaler .COMPLEX #8.5 ea tiotropium bromide 18 mcg capsule 1 cap inhalation DAILY #30 caps 04/01/22 12/19/22 Rx with inhalation device (Spiriva with HandiHaler) mometasone-formoterol HFA 100 See Rx Instructions .Route 04/30/22 12/19/22 Rx mcg-5 mcg/actuation aerosol .COMPLEX #13 ea inhaler (Dulera) levothyroxine 25 mcg tablet 25 mcg PO DAILY #90 tabs 06/05/22 12/19/22 Rx folic acid 1 mg tablet 1 mg PO DAILY #90 tabs 08/08/22 12/19/22 Rx fluticasone propionate 50 2 spray intranasal DAILY #16 grams 09/04/22 12/19/22 Rx mcg/actuation nasal spray,suspension cetirizine 10 mg tablet 10 mg PO QHS #30 tabs 09/08/22 12/19/22 Rx azelastine 137 mcg (0.1 %) nasal 2 spray intranasal BID #30 mL 10/26/22 12/19/22 Rx spray aerosol trazodone 100 mg tablet 100 mg PO DAILY 11/04/22 12/19/22 History montelukast 10 mg tablet See Rx Instructions .Route 12/05/22 12/19/22 Rx .COMPLEX #90 tabs Patient hx anesthesia problems: none Family hx anesthesia problems: none Results Review: All pre-operative results and documents have been reviewed as part of the pre-operative evaluation. [facility] Past Medical History Medical History Bloating Bronchitis Carpal tunnel syndrome on both sides Carpal tunnel syndrome, bilateral Chronic back pain COPD (chronic obstructive pulmonary disease) Depression Diarrhea Emphysema of lung GERD (gastroesophageal reflux disease) Hypersomnolence Irritable bowel syndrome with constipation Migraines Nicotine dependence Osteoarthritis of left hip PUD (peptic ulcer disease) Serrated polyp of colon Serrated polyposis syndrome Surgical History Surgical History H/O Spinal surgery Lumbar spinal cage H/O tubal ligation History of carpal tunnel surgery History of shoulder surgery Left S/P endometrial ablation Family History Family History Father Malignant neoplasm of prostate Patient's father is Sibling Patient's sister is Mother Family history of malignant neoplasm Other Diabetes mellitus Family history of cardiovascular disease Hypertension Social History Social History (Updated 11/04/22 @ 14:15 by LIYAH Mead) Smoking packs per day: 0.5 Smoking cigarettes per day: 10.0 Years smoked: 47 Smoking pack-years: 23.50 Smoking status: Current every day smoker Tobacco type: cigarettes Second hand tobacco smoke exposure: No Alcohol intake: current Drinks per week: 14 Substance use: never Substance use type: does not use Lack of Transportation: No Lack of Food: Sometimes True Current Housing: I Have Housing C
--- NOTE | 2022-12-19 07:30 | PM.HPGS ---
History of Present Illness History of Present Illness Consent: Risks, benefits, and alternatives have been discussed and questions answered. Patient agrees to proceed with procedure. Chief complaint: serrated polyposis syndrome Narrative: Destini Watts is a 57 year old female with serrated polyposis syndrome, last colonoscopy 1 year ago. Review of Systems Constitutional: Constitutional: Denies headache(s) and Denies weakness Eyes: Eyes: Denies blurry vision ENT: Reports Normal hearing present, Denies headache(s) and Denies neck pain Cardiovascular: Cardiovascular: Denies chest pain and Denies dyspnea Respiratory: Respiratory: Denies dyspnea Gastrointestinal: Gastrointestinal: Reports no additional gastrointestinal complaints Genitourinary: Genitourinary: Denies dysuria Musculoskeletal: Musculoskeletal: Denies neck pain Integumentary/Breasts: Skin/Breast: Denies dry skin Neurologic: Reports Normal hearing present, Denies headache(s) and Denies weakness Psychiatric: Psychiatric: Denies anxiety Endocrine: Endocrine: Denies change in body appearance Hematologic/Lymphatic: Hematologic/Lymphatic: Denies easy bleeding Allergic/Immunologic: Allergic/Immunologic: Denies urticaria PMFSH Past Medical History Medical History Bloating Bronchitis Carpal tunnel syndrome on both sides Carpal tunnel syndrome, bilateral Chronic back pain COPD (chronic obstructive pulmonary disease) Depression Diarrhea Emphysema of lung GERD (gastroesophageal reflux disease) Hypersomnolence Irritable bowel syndrome with constipation Migraines Nicotine dependence Osteoarthritis of left hip PUD (peptic ulcer disease) Serrated polyp of colon Serrated polyposis syndrome Surgical History Surgical History H/O Spinal surgery Lumbar spinal cage H/O tubal ligation History of carpal tunnel surgery History of shoulder surgery Left S/P endometrial ablation Family History Family History Father Malignant neoplasm of prostate Patient's father is Sibling Patient's sister is Mother Family history of malignant neoplasm Other Diabetes mellitus Family history of cardiovascular disease Hypertension Social History Social History (Updated 11/04/22 @ 14:15 by LIYAH Mead) Smoking packs per day: 0.5 Smoking cigarettes per day: 10.0 Years smoked: 47 Smoking pack-years: 23.50 Smoking status: Current every day smoker Tobacco type: cigarettes Second hand tobacco smoke exposure: No Alcohol intake: current Drinks per week: 14 Substance use: never Substance use type: does not use Lack of Transportation: No Lack of Food: Sometimes True Current Housing: I Have Housing Concerned About Future Housing: No Difficulty Paying Gas/Electric Bills: No Difficulty Paying for Meds: No Currently Unemployed: No Education: High School Diploma/GED Difficulty w/ Childcare or Family Care: No Living arrangements: with family Occupation/Education: other Gender identity (if verbalized by the patient): Female Spiritual care concerns: No Meds Home Medications and Allergies Home Medications Medication Instructions Recorded Confirmed Type nebulizer accessories #1 ea 04/09/21 12/19/22 Rx albuterol sulfate 2.5 mg/3 mL 2.5 mg (3 mL) inhalation Q4-6H PRN 10/09/21 12/19/22 Rx (0.083 %) solution for nebulization shortness of breath or wheezing #90 mL albuterol sulfate 90 mcg/actuation See Rx Instructions .Route 12/10/21 12/19/22 Rx aerosol inhaler .COMPLEX #8.5 ea tiotropium bromide 18 mcg capsule 1 cap inhalation DAILY #30 caps 04/01/22 12/19/22 Rx with inhalation device (Spiriva with HandiHaler) mometasone-formoterol HFA 100 See Rx Instructions .Route 04/30/22 12/19/22 Rx
[2022-12-19 07:56] VITALS: BP 109/63; PULSE 61; RESP 22; O2SAT 100
[2022-12-19 08:06] VITALS: BP 121/72; PULSE 65; RESP 16; O2SAT 99
[2022-12-19 08:16] VITALS: BP 128/80; PULSE 63; RESP 21; O2SAT 94
== END 2022-12-19 08:33 | disposition home or self-care (01) ==
PROVIDERS: PCP Internal Medicine; Visit Provider Internal Medicine Gastroenterology
PROC: 0DJD8ZZ Inspection of Lower Intestinal Tract, Via Natural or Artificial Opening Endoscopic (ICD-10-PCS; CPT 45378; principal; 2022-12-19 07:30)
DX: K63.5 Polyp of colon (principal); K57.30 Diverticulosis of large intestine without perforation or abscess without bleeding; K64.8 Other hemorrhoids; K21.9 Gastro-esophageal reflux disease without esophagitis; J43.9 Emphysema, unspecified; F32.A Depression, unspecified; F17.210 Nicotine dependence, cigarettes, uncomplicated; Z79.51 Long term (current) use of inhaled steroids
CPT/HCPCS: 45385; 88305; J2704; J7120

== ENCOUNTER 2024-02-13 04:00 | Day surgery (SDC) | payer OTHER, SELFPAY ==
[2024-01-22 13:04] VITALS: BMI 22.8
--- NOTE | 2024-02-12 11:34 | WPDANESEPPF ---
Anes - Initial Pre Proc Eval Procedure: Operation Date: 02/13/24 09:30 Proposed Procedures p Colonoscopy - Chuckie Oswald MD Date/Time: 02/12/24 11:34 Surgeon: Chuckie Oswald MD Pre Op Diagnosis: personal hx colonic polyps Patient Data Age: 58 Gender: F Height: 1.73 m Weight: 68.1 kg Allergies Allergy/AdvReac Type Severity Reaction Status Date / Time alprazolam Allergy Unknown Swelling Verified 02/13/24 08:06 [email or web address] [From Chantix] AdvReac Intermediate nightmares, Verified 02/13/24 08:06 sleep walking Home Medications Medication Instructions Recorded Confirmed Type nebulizer accessories #1 ea 04/09/21 01/22/24 Rx albuterol sulfate 2.5 mg/3 mL 2.5 mg (3 mL) inhalation Q4-6H PRN 10/09/21 02/13/24 Rx (0.083 %) solution for nebulization shortness of breath or wheezing #90 mL tiotropium bromide 18 mcg capsule 1 cap inhalation DAILY #30 caps 04/01/22 02/13/24 Rx with inhalation device (Spiriva with HandiHaler) mometasone-formoterol HFA 100 See Rx Instructions .Route 04/30/22 02/13/24 Rx mcg-5 mcg/actuation aerosol .COMPLEX #13 ea inhaler (Dulera) folic acid 1 mg tablet See Rx Instructions .Route 02/27/23 02/13/24 Rx .COMPLEX #30 tabs fluoxetine 40 mg capsule 40 mg PO DAILY #90 caps 03/28/23 02/13/24 Rx albuterol sulfate 90 mcg/actuation See Rx Instructions .Route 06/11/23 02/13/24 Rx aerosol inhaler .COMPLEX #8.5 ea montelukast 10 mg tablet See Rx Instructions .Route 06/16/23 02/13/24 Rx .COMPLEX #90 tabs levothyroxine 25 mcg tablet 25 mcg PO DAILY #90 tabs 07/08/23 02/13/24 Rx fexofenadine 180 mg tablet 180 mg PO DAILY #90 tabs 07/09/23 02/13/24 Rx (Jenny Allergy) tizanidine 4 mg capsule 4 mg PO QHS PRN muscle spasticity 05/21/24 10/04/24 Rx #30 caps fluticasone propionate 50 2 spray intranasal DAILY #16 grams 10/02/23 02/13/24 Rx mcg/actuation nasal spray,suspension omeprazole 20 mg capsule,delayed 20 mg PO DAILY 01/22/24 02/13/24 History release azelastine 137 mcg (0.1 %) nasal 2 spray intranasal BID #30 mL 01/27/24 02/13/24 Rx spray Patient hx anesthesia problems: none Family hx anesthesia problems: none Results Review: All pre-operative results and documents have been reviewed as part of the pre-operative evaluation. [facility] Past Medical History Medical History Bloating Bronchitis Carpal tunnel syndrome on both sides Carpal tunnel syndrome, bilateral Chronic back pain COPD (chronic obstructive pulmonary disease) Depression Diarrhea Emphysema of lung GERD (gastroesophageal reflux disease) Hypersomnolence Irritable bowel syndrome with constipation Migraines Nicotine dependence Osteoarthritis of left hip PUD (peptic ulcer disease) Serrated polyp of colon Serrated polyposis syndrome Surgical History Surgical History H/O Spinal surgery Lumbar spinal cage H/O tubal ligation History of carpal tunnel surgery History of foot surgery left History of left hip replacement History of shoulder surgery Left History of total right knee replacement S/P endometrial ablation Family History Family History Father Malignant neoplasm of prostate Patient's father is Sibling Patient's sister is Mother Family history of malignant neoplasm Other Diabetes mellitus Family history of cardiovascular disease Hypertension Social History Social History Smoking packs per day: 0.5 Smoking cigarettes per day: 10.0 Years smoked: 48 Smoking pack-years: 24.00 Smoking status: Current every day smoker Tobacco type: cigarettes Second hand tobacco smoke exposure: No Alcohol intake: current Drinks per week: 4 Substance use: never Substance use type: does not
[2024-02-13 08:07] VITALS: BP 127/85; PULSE 86; RESP 18; TEMP 36.2; O2SAT 97
[2024-02-13] MEDS: LACTATED RINGERS 1,000 ML 150 ML IV CONT (08:24)
--- NOTE | 2024-02-13 10:06 | PM.IMHP ---
H&P: HPI History of Present Illness Date/Time: 02/13/24 10:06 Chief Complaint: history of colonic polyps Narrative: The patient has a history of multiple adenomas with high-grade dysplasia and sessile serrated adenomas. Her last colonoscopy was in December 2022, finding 2 small hyperplastic polyps. She is here for surveillance colonoscopy. Review of Systems Review of Systems: All systems reviewed & are unremarkable except as noted in HPI and below PMFSH Past Medical History Medical History Bloating Bronchitis Carpal tunnel syndrome on both sides Carpal tunnel syndrome, bilateral Chronic back pain COPD (chronic obstructive pulmonary disease) Depression Diarrhea Emphysema of lung GERD (gastroesophageal reflux disease) Hypersomnolence Irritable bowel syndrome with constipation Migraines Nicotine dependence Osteoarthritis of left hip PUD (peptic ulcer disease) Serrated polyp of colon Serrated polyposis syndrome Surgical History Surgical History H/O Spinal surgery Lumbar spinal cage H/O tubal ligation History of carpal tunnel surgery History of foot surgery left History of left hip replacement History of shoulder surgery Left History of total right knee replacement S/P endometrial ablation Family History Family History Father Malignant neoplasm of prostate Patient's father is Sibling Patient's sister is Mother Family history of malignant neoplasm Other Diabetes mellitus Family history of cardiovascular disease Hypertension Social History Social History Smoking packs per day: 0.5 Smoking cigarettes per day: 10.0 Years smoked: 48 Smoking pack-years: 24.00 Smoking status: Current every day smoker Tobacco type: cigarettes Second hand tobacco smoke exposure: No Alcohol intake: current Drinks per week: 4 Substance use: never Substance use type: does not use Do You Feel Safe in your Home?: Yes Lack of Transportation: No Lack of Food: Never True Current Housing: I Have Housing Concerned About Future Housing: No Difficulty Paying Gas/Electric Bills: No Difficulty Paying for Meds: No Currently Unemployed: Decline to Answer Education: High School Diploma/GED Difficulty w/ Childcare or Family Care: No Living arrangements: with family Occupation/Education: other Gender identity (if verbalized by the patient): Female Spiritual care concerns: No Meds Home Medications and Allergies Home Medications Medication Instructions Recorded Confirmed Type nebulizer accessories #1 ea 04/09/21 01/22/24 Rx albuterol sulfate 2.5 mg/3 mL 2.5 mg (3 mL) inhalation Q4-6H PRN 10/09/21 02/13/24 Rx (0.083 %) solution for nebulization shortness of breath or wheezing #90 mL tiotropium bromide 18 mcg capsule 1 cap inhalation DAILY #30 caps 04/01/22 02/13/24 Rx with inhalation device (Spiriva with HandiHaler) mometasone-formoterol HFA 100 See Rx Instructions .Route 04/30/22 02/13/24 Rx mcg-5 mcg/actuation aerosol .COMPLEX #13 ea inhaler (Dulera) folic acid 1 mg tablet See Rx Instructions .Route 02/27/23 02/13/24 Rx .COMPLEX #30 tabs fluoxetine 40 mg capsule 40 mg PO DAILY #90 caps 03/28/23 02/13/24 Rx albuterol sulfate 90 mcg/actuation See Rx Instructions .Route 06/11/23 02/13/24 Rx aerosol inhaler .COMPLEX #8.5 ea montelukast 10 mg tablet See Rx Instructions .Route 06/16/23 02/13/24 Rx .COMPLEX #90 tabs levothyroxine 25 mcg tablet 25 mcg PO DAILY #90 tabs 07/08/23 02/13/24 Rx fexofenadine 180 mg tablet 180 mg PO DAILY #90 tabs 07/09/23 02/13/24 Rx (Jenny Allergy) tizanidine 4 mg capsule 4 mg PO QHS PRN muscle spasticity 09/30/23 02/13/24 Rx #30 caps fluticasone propionate 50 2 spray
[2024-02-13 10:40] VITALS: BP 111/74; PULSE 65; RESP 16; O2SAT 98
[2024-02-13 10:50] VITALS: BP 126/77; PULSE 62; RESP 17; O2SAT 100
[2024-02-13 11:00] VITALS: BP 147/94; PULSE 63; RESP 23; O2SAT 100
== END 2024-02-13 11:08 | disposition home or self-care (01) ==
PROVIDERS: PCP Internal Medicine; Referring Provider Internal Medicine Gastroenterology; Visit Provider Internal Medicine Gastroenterology
PROC: 0DJD8ZZ Inspection of Lower Intestinal Tract, Via Natural or Artificial Opening Endoscopic (ICD-10-PCS; CPT 45378; principal; 2024-02-13 09:30)
DX: Z09 Encounter for follow-up examination after completed treatment for conditions other than malignant neoplasm (principal); K62.1 Rectal polyp; K57.30 Diverticulosis of large intestine without perforation or abscess without bleeding; G56.03 Carpal tunnel syndrome, bilateral upper limbs; G89.29 Other chronic pain; M54.9 Dorsalgia, unspecified; F32.A Depression, unspecified; K21.9 Gastro-esophageal reflux disease without esophagitis; J43.9 Emphysema, unspecified; K58.1 Irritable bowel syndrome with constipation; M16.12 Unilateral primary osteoarthritis, left hip; K27.9 Peptic ulcer, site unspecified, unspecified as acute or chronic, without hemorrhage or perforation; F17.210 Nicotine dependence, cigarettes, uncomplicated; Z79.51 Long term (current) use of inhaled steroids; Z98.890 Other specified postprocedural states; Z98.1 Arthrodesis status; Z98.51 Tubal ligation status; Z86.0100 Personal history of colon polyps, unspecified; Z80.42 Family history of malignant neoplasm of prostate; Z82.49 Family history of ischemic heart disease and other diseases of the circulatory system
CPT/HCPCS: 45385; 88305; J2003; J2704; J7120

== ENCOUNTER 2024-02-22 14:56 | Emergency (ER) | payer OTHER, SELFPAY ==
--- NOTE | ~2024-02-22 | XR_ITS ---
EXAM: XR forearm RT 2V DATE: 02/22/2024 15:17 HISTORY: Fall . COMPARISON: 03/17/2019. FINDINGS: Normal mineralization. No fracture or dislocation. No lytic or blastic lesion. Mild degene rative change at the elbow and wrist. No erosion or periosteal change. Soft tissues within normal vance its. IMPRESSION: No acute osseous finding in the right forearm. Reviewed, dictated and finalized at location K.
[2024-02-22 15:06] VITALS: BP 148/80; PULSE 72; RESP 18; TEMP 37.3; O2SAT 97
--- NOTE | 2024-02-22 15:07 | ED_ITS ---
HPI - Extremity Injury (Upper) General Chief Complaint: Extremity Injury, Upper Stated Complaint: FALL Time Seen by Provider: 02/22/24 15:15 Source: patient and RN notes reviewed Mode of arrival: ambulatory Limitations: no limitations History of Present Illness HPI narrative: 58-year-old female presents with concern for right forearm injury. Reports she fell yesterday and has since had pain and bruising to her forearm and wrist. She reports worsening pain with rotating of the wrist. MD complaint: injury to: right and forearm Related Data Home Medications Medication Instructions Recorded Confirmed omeprazole 20 mg capsule,delayed 20 mg PO DAILY 01/22/24 02/22/24 release Allergies Allergy/AdvReac Type Severity Reaction Status Date / Time alprazolam Allergy Unknown Swelling Verified 02/22/24 15:06 [email or web address] [From Chantix] AdvReac Intermediate nightmares, Verified 02/22/24 15:06 sleep walking Review of Systems Review of Systems: CONSTITUTIONAL: Denies malaise, chills, sweats, or fever. SKIN: Denies rash or itching, open skin, laceration, abrasion, redness, warmth, swelling. MUSCULOSKELETAL: Reports left right forearm pain and bruising NEUROLOGIC: Denies numbness, weakness All systems reviewed & are unremarkable except as noted in HPI and below PMFSH Past Medical History Medical History Bloating Bronchitis Carpal tunnel syndrome on both sides Carpal tunnel syndrome, bilateral Chronic back pain COPD (chronic obstructive pulmonary disease) Depression Diarrhea Emphysema of lung GERD (gastroesophageal reflux disease) Hypersomnolence Irritable bowel syndrome with constipation Migraines Nicotine dependence Osteoarthritis of left hip PUD (peptic ulcer disease) Serrated polyp of colon Serrated polyposis syndrome Surgical History Surgical History H/O Spinal surgery Lumbar spinal cage H/O tubal ligation History of carpal tunnel surgery History of foot surgery left History of left hip replacement History of shoulder surgery Left History of total right knee replacement S/P endometrial ablation Family History Family History Father Malignant neoplasm of prostate Patient's father is Sibling Patient's sister is Mother Family history of malignant neoplasm Other Diabetes mellitus Family history of cardiovascular disease Hypertension Social History Social History Smoking packs per day: 0.5 Smoking cigarettes per day: 10.0 Years smoked: 48 Smoking pack-years: 24.00 Smoking status: Current every day smoker Tobacco type: cigarettes Second hand tobacco smoke exposure: No Alcohol intake: current Drinks per week: 4 Substance use: never Substance use type: does not use Do You Feel Safe in your Home?: Yes Lack of Transportation: No Lack of Food: Never True Current Housing: I Have Housing Concerned About Future Housing: No Difficulty Paying Gas/Electric Bills: No Difficulty Paying for Meds: No Currently Unemployed: Decline to Answer Education: High School Diploma/GED Difficulty w/ Childcare or Family Care: No Living arrangements: with family Occupation/Education: other Gender identity (if verbalized by the patient): Female Spiritual care concerns: No Comments At time of signature, agree with nursing past medical, surgical, social and family history. There is no relevant family history pertinent to the presenting complaint Exam Narrative: GENERAL: Well-appearing, well-nourished, and in no acute distress. HEAD: Normocephalic, atraumatic. EYES: PERRLA, conjunctivae clear NECK: Supple. CHEST: Speaks in full sentences. No respiratory distress. HEART: Regular rate and rhythm. Normal and equal peripheral pulses. EXTREMITIES: Right forearm/wrist, hand, digits have grossly normal strength and sensation, grossly normal range of motion. Mild edema with wrist ecchymosis. Normal sensation with sensitivity to light touch and pain. Wrist tenderness. No open wounds, no skin tenting, no devitalized tissue or atrophy, no trophic changes, no obvious deformity, alignment normal, nearby joints and structures intact. Distal pulses palpable and equal bilaterally, skin warm, dry, pink. Capillary refill less than 3 seconds. SKIN: Warm, dry, no rash. NEURO: Alert and oriented x3. PSYCH: Normal mood and affect Course Course Emergency Course: Patient is aware of diagnosis, understands and agrees to treatment plan. Anticipatory guidance given. Patient agrees to follow-up as directed and is aware of reasons to seek care at the emergency department. Portions of this record may have been created with voice recognition software Level of Care: Express Care Visit Vital Signs Vital signs: Reviewed. MDM - Extremity Injury (Upper) MDM Narrative Medical decision making narrative: Patients injury and pain is consistent with musculoskeletal etiology. No signs of neurological or vascular compromise on exam. Compartments and tissues are soft without signs of compartment syndrome. Pain is felt appropriate for further evaluation on an outpatient basis. Imaging Data Radiologist's impression: EXAM: XR forearm RT 2V DATE: 02/22/2024 15:17 HISTORY: Fall . COMPARISON: 03/17/2019. FINDINGS: Normal mineralization. No fracture or dislocation. No lytic or blastic lesion. Mild degenerative change at the elbow and wrist. No erosion or periosteal change. Soft tissues within normal limits. IMPRESSION: No acute osseous finding in the right forearm. Critical Care Time Critical Care Time Critical Care Time: No Discharge Plan Discharge Clinical Impression: Contusion of right wrist Patient Disposition: Home, Self-Care Condition: Stable Instructions: Contusion in Adults (ED) Additional Instructions: Avoid activities that cause pain until the pain subsides. Ice to the area 20-30 minutes 4-6 times a day Elevate above heart Elastic wrap as directed for comfort for the next 5-7 days Tylenol for lesser pain Ibuprofen regularly for the next 2-3 days for the inflammation Follow up with your primary care provider if the condition is not improving within 1 week. If the condition worsens with numbness, tingling, decrease sensation with weakness seek treatment in the emergency room immediately. Prescriptions: No Action albuterol sulfate 2.5 mg /3 mL (0.083 %) solution for nebulization 2.5 mg inhalation Q4-6H PRN (Reason: shortness of breath or wheezing) Qty: 90 3RF albuterol sulfate 90 mcg/actuation HFA aerosol inhaler See Rx Instructions .ROUTE .COMPLEX Qty: 8.5 3RF Dose Instruction: INHALE 2 PUFFS BY MOUTH EVERY 4-6 HOURS NEEDED FOR SHORTNESS OF BREATH OR WHEEZING Rx Instructions: INHALE 2 PUFFS BY MOUTH EVERY 4-6 HOURS NEEDED FOR SHORTNESS OF BREATH OR WHEEZING fexofenadine [Jenny Allergy] 180 mg tablet 180 mg PO DAILY Qty: 90 1RF fluoxetine 40 mg capsule 40 mg PO DAILY Qty: 90 0RF (DME) nebulizer accessories Misc See Rx Instructions .Route Qty: 1 0RF Rx Instructions: As directed tizanidine 4 mg capsule 4 mg PO QHS PRN (Reason: muscle spasticity) Qty: 30 0RF omeprazole 20 mg Capsule,Delayed Release(Dr/Ec) 20 mg PO DAILY Spiriva with HandiHaler 18 mcg capsule, w/inhalation device 1 cap INHALATION DAILY Qty: 30 5RF Rx Instructions: puncture 1 cap using device; one cap = 2 inhalations Dulera 100-5 mcg/actuation HFA aerosol inhaler See Rx Instructions .ROUTE .COMPLEX Qty: 13 6RF Dose Instruction: INHALE 2 PUFFS BY MOUTH EVERY 12 HOURS RINSE AND SPIT AFTER EACH USE. Rx Instructions: INHALE 2 PUFFS BY MOUTH EVERY 12 HOURS RINSE AND SPIT AFTER EACH USE. folic acid 1 mg tablet See Rx Instructions .ROUTE .COMPLEX Qty: 30 5RF Dose Instruction: 1 MG ORALLY DAILY Rx Instructions: 1 MG ORALLY DAILY montelukast 10 mg tablet See Rx Instructions .ROUTE .COMPLEX Qty: 90 3RF Dose Instruction: TAKE 1 TABLET BY MOUTH EVERY DAY Rx Instructions: TAKE 1 TABLET BY MOUTH EVERY DAY levothyroxine 25 mcg tablet 25 mcg PO DAILY Qty: 90 2RF fluticasone propionate 50 mcg/actuation spray,suspension 2 spray INTRANASAL DAILY Qty: 16 6RF azelastine 137 mcg (0.1 %) spray,non-aerosol 2 spray INTRANASAL BID Qty: 30 6RF Follow-up/Referrals: Mendez Mathis DO [Primary Care Provider] - Time of Disposition: 15:39
== END 2024-02-22 15:45 | disposition home or self-care (01) ==
PROVIDERS: Emergency Provider Nurse Practitioner; PCP Internal Medicine
DX: S60.211A Contusion of right wrist, initial encounter (principal); W19.XXXA Unspecified fall, initial encounter; J44.9 Chronic obstructive pulmonary disease, unspecified; K21.9 Gastro-esophageal reflux disease without esophagitis; M16.12 Unilateral primary osteoarthritis, left hip; Z96.642 Presence of left artificial hip joint; Z96.651 Presence of right artificial knee joint
CPT/HCPCS: 73090; 99213; G0463

== ENCOUNTER 2024-03-17 17:10 | Emergency (ER) | payer OTHER, SELFPAY ==
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
[2024-03-17 17:11] VITALS: BP 146/90; PULSE 77; RESP 18; TEMP 36.4; O2SAT 99
[2024-03-17 17:27] VITALS: BP 146/90; PULSE 77; RESP 16; TEMP 36.4; O2SAT 99
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
--- NOTE | 2024-03-17 17:32 | PC.NURSE ---
Pt c/o posterior neck and low back pain. C-collar applied in triage. No open skin, bleeding, drainage or deformity. Pain is worse with movement.
[2024-03-17] MEDS: IBUPROFEN 400 MG TABLET 800 MG PO (18:08)
[2024-03-17] MEDS: ORPHENADRINE CITRATE 100 MG TABLET.ER PO (18:08)
[2024-03-17] MEDS: ACETAMINOPHEN 500 MG TABLET 1000 MG PO (18:09)
== END 2024-03-17 18:55 | disposition home or self-care (01) ==
LOC: ANHED 18:04
PROVIDERS: Emergency Provider Physician Assistant; PCP Internal Medicine
DX: S19.9XXA Unspecified injury of neck, initial encounter (principal); S39.92XA Unspecified injury of lower back, initial encounter; J43.9 Emphysema, unspecified; K21.9 Gastro-esophageal reflux disease without esophagitis; K58.1 Irritable bowel syndrome with constipation; M16.12 Unilateral primary osteoarthritis, left hip; F17.210 Nicotine dependence, cigarettes, uncomplicated; Z96.642 Presence of left artificial hip joint; Z96.651 Presence of right artificial knee joint; Z87.11 Personal history of peptic ulcer disease; Z86.0101 Personal history of adenomatous and serrated colon polyps; V49.40XA Driver injured in collision with unspecified motor vehicles in traffic accident, initial encounter
CPT/HCPCS: 72125; 72131; 99284; A9270

== ENCOUNTER 2024-10-19 13:54 | Outpatient (CLI) | payer OTHER, SELFPAY ==
--- NOTE | ~2024-10-19 | CT_ITS ---
CT Scan of the Chest without Contrast: Clinical Indication: Lung cancer screening, nicotine dependence Technique: Contiguous sections were acquired throughout the chest without intravenous contrast. Dose reduction technique was used on this scan by utilizing automated exposure control and iterative recon struction technique. The dose-length product (DLP) was 75.68 mGy-cm. COMPARISON: 08/12/2022 Findings: There is no evidence of any significant mediastinal, hilar or axillary lymphadenopathy. The mediastin al soft tissues appear normal. There is no evidence of pleural or pericardial effusion. Stable emphysema and biapical scarring. 9 mm right upper lobe pulmonary nodule is increased from prio r exam (axial image 38). Calcified left upper lobe granuloma present. Images through the upper abdomen reveal no abnormalities. Impression: Lung RADS 4B: Suspicious. Increasing 9 mm right upper lobe pulmonary nodule. Consider PET/CT or attem pted tissue sampling. Reviewed, dictated and finalized at [facility]. Impression: Lung RADS 4B: Suspicious. Increasing 9 mm right upper lobe pulmonary nodule. Co nsider PET/CT or attempted tissue sampling.
--- OUTSIDE RECORDS SUMMARY | 2024-10-19 15:13 | XMS_ITS | Data Portability ---
Author Organization [place] [facility] [place] [facility], Main Office Address [address] [place] [address] Care Team Providers Care Security Operations Specialist Name Role Phone AFUA ALBARRAN Primary Care Provider AFUA ALBARRAN Referring Provider Assessment Encounter Date Assessment Date Assessment LastModified by Organization Details LastModified Time 05/15/2023 05/15/2023 Impression: Patient seems to have had a flare-up of symptoms from overactivity yesterday awakening with severe pain. Differential diagnosis would include infection. I have recommend that she increase the Celebrex 100 mg twice daily I have refilled her oxycodone she will continue with Tylenol and I am going to give her a Medrol Dosepak quite on inflammation. She will call us tomorrow morning And tell us how she is progressing. If she is not markedly improved we will obtain a C-reactive protein and sedimentation rate and if elevated aspirate the knee to rule out infection but my suspicion is low based on her benign appearance today. Not available 06/01/2023 17:46:35 05/21/2023 05/21/2023 HPI: Patient returns. She is 1 month out from right total knee. Last time we saw her she was having rather severe pain in the knee. This has improved. She is still getting episodes of severe quick pains that quickly dissipate which are fairly typical following total knee arthroplasty. The should quiet down time. She has finished up the Medrol Dosepak. She feels that the knee is doing better at this point. I did talk with her about her pain and she relates to me that she was on her feet a lot. She was feeling good knee was feeling good therefore she was a lot more busy and on her feet which is probably what caused a flare she did have blood work done, CRP and sed rate both of these were completely normal. Physical exam: Patient is walking with a cane today. She has just a minimal effusion in the right knee. Range of motion is from 0-110 degrees, with a little push anger 115. No increased swelling in either lower extremity. Impression: Patient is doing better now with regard to right total knee. She will continue with Celebrex. She will get back to do exercises on a more our regular basis. She is getting little bit stiff. She is going to be doing the chair exercises every hour at this point. We will see her back in 2 weeks for re-evaluation and x-rays. [email or web address] Not available 05/21/2023 13:03:49 06/04/2023 06/04/2023 Impression: She has faint erythema along the skin edges of the distal 2/3 of her incision and I believe this is due to hyperemia due to her skin being so thin in this region. She is still vaping and I have discussed with her that the nicotine causes vaso constriction which limits the blood flow to the skin edges. She has skin over the kneecap that is probably less than 1.5 mm thick. I showed her how thick the skin is over the left patella by pinching the skin upward to show the thickness of the 2 layers. I explained her that these skin edges are elevated for quite a distance medially and laterally exposing the patella to do the knee replacement surgery and the blood flow has to travel a long distance along those thin skin flaps to reach the edges. This is why we have not had her use ice. I do not think this represents cellulitis. Other than the 1/2 inch wide strip the incision is right down the center of the strip there is no erythema otherwise. I would recommend that she stop vaping completely at this time. We have discussed this several times in the past but she is noncompliant and I have discussed her that she could have development of infection due to inadequate blood flow the skin edges. She is going to continue with physical therapy. I am going to prescribe a week of cefdinir to prevent development of cellulitis. She will stop vaping completely. I will see her back in 1 week to assess her progress. Not available 06/08/2023 15:05:56 06/12/2023 06/12/2023 patient returns. Her incision looks benign today. The erythema 1/2 inch on each side of the distal 2/3 of the incision is still present but is more faint. He is a mild effusion her knee has mild warmth. Again she is very very thin. She has a little bit of hypersensitivity with light touch along the length of the incision. She has range of motion from 2-120 supine in a chair with chair stretch she can flex to 130. She is still smoking but cutting back she states. She is not able or willing to quit smoking completely which I think would be the safest approach for her. We have her taking Celebrex 100 mg twice daily. She has a history of reflux esophagitis and is taking omeprazole daily and so far she has tolerated the Celebrex quite well. She has been taking approximately 6 or 7 of the oxycodone is a per day and anticipates she will run out Friday and requests a refill today the right oxycodone is. I have recommended that she make this last refill her last refill. Recommend that she try and space them out so she can gradually wean down. She will continue taking the Tylenol scheduled basis. She has 1 more week of physical therapy remaining. She states she is definitely gradually getting better but yesterday she walked up 21 steps which she tolerated but she was very sore that night. I will see her back in 4 weeks to assess her progress. If anything changes she will call. Not available 06/12/2023 15:51:13 07/10/2023 07/10/2023 Patient returns now 2 and half months after right total knee arthroplasty. She has been off the oxycodone for 1 month. She ran out of Celebrex 1 or 2 weeks ago and requests refill today. Her knee is doing much better. She still occasionally will have episode of severe pain when she moves around at night but she is now noticing that her back pain is more prevalent than her knee pain during the day and her back is causing her to limp a little bit. She is in the process of being referred to a back specialist. She is going to be seeing Dr. Mathis while Dr. Fischer is out. She is taking care of a 3-month-old baby by herself while her is at work and the 2 of them together when he is home from work so she is very active by necessity. On exam today her incision looks perfectly healed. There is no erythema. She reports when she gets soreness, it is located by the fibular head she did not have tenderness over the lateral collateral ligament or fibular head today. In extension she has no opening laterally she does have full extension 0 and flexion to 145 today. In extension she opens up 0 mm laterally 3 mm medially. There is a trace effusion. At 90 she has about 3 or 4 mm of anterior posterior drawer. Patient is showing steady improvement. She has resumed fairly rigorous activities daily basis. She asked for refill of her Celebrex which may help her back pain somewhat and I have prescribed 100 mg daily. I have given 1 refill. She is doing her daily home exercises for her knee will continue with this over this next year and I will see her back in 9 and half months for 1 year follow-up. If she has any problems in the meantime she will call. I advised her that my practice will be moving and I am happy to see her if she calls. Not available 07/10/2023 13:20:59 Plan of Treatment Reminders Order Date Submit Date Provider Last Modified By Organization Details Last Modified Time Details Appointments None recorded. Lab None recorded. Referral None recorded. Procedures None recorded. Surgeries None recorded. Imaging XR, knee 2023 024 [facility] [place], [facility] [address], [place], [address], 18:21:53 Medication Orders Celebrex 100 mg capsule 2023 024 [facility] [id number], [address], 4 08:48:12 cefdinir 300 mg capsule 2023 024 [facility] [address], [address], 4 15:00:40 Medrol (Dutch) 4 mg tablets in a dose pack 01/04/ 2024 01/04/2 024 [email or web address] [facility] [id number], [address], 4 11:18:30 Celebrex 100 mg capsule 2023 024 [facility] In [facility], [address] [place] [address], [address], 4 17:42:46 Patient TargetsNo targets recorded. Patient InstructionsNo instructions recorded. Reason for Referral None Reported. Results Created Date Observation Date Name Description Value Unit Range Abnormal Flag Note LastModifiedBy Organization Detail LastModifiedTime 04/23/2004/23/2023 CBC W/O DIFFE RENTI AL white blood cells 10.7 x10'3 /uL 4.2-10 .8 Not Available [facility] (Lab) [address] [place], [address], 04/23/2023 07:18:23 04/23/20 23 04/23/2023 CBC W/O DIFFE RENTI AL red blood cells 3.31 x10'6 /uL 3.80-5 .20 low Not Available [facility] (Lab) [address] [place], [address], 04/23/2023 07:18:23 04/23/20 23 04/23/2023 CBC W/O DIFFE RENTI AL hemoglobin 11.1 g/dL 12.0-1 5.6 low Not Available [facility] (Lab) [address] [place], [address], 04/23/2023 07:18:23 04/23/20 23 04/23/2023 CBC W/O DIFFE RENTI AL hematocrit 34.2 % 35.7-4 5.7 low Not Available [facility] (Lab) [address] [place], [address], 04/23/2023 07:18:23 04/23/20 23 04/23/2023 CBC W/O DIFFE RENTI AL mean red cell volume 103.3 fL 82.0-9 9.0 high Not Available [facility] (Lab) [address] [facility] [place], [address], 04/23/2023 07:18:23 04/23/20 23 04/23/2023 CBC W/O DIFFE RENTI AL mean red cell hemoglobin 33.5 pg 27.0-3 3.0 high Not Available [facility] (Lab) [address] [place], [address], 04/23/2023 07:18:23 04/23/20 23 04/23/2023 CBC W/O DIFFE RENTI AL mean RBC HGB concentratio n 32.5 g/dL 31.0-3 6.0 Not Available [facility] (Lab) [address] [place], [address], 04/23/2023 07:18:23 04/23/20 23 04/23/2023 CBC W/O DIFFE RENTI AL red cell distribution width 12.4 % 11.8-1 5.5 Not Available [facility] (Lab) [address] [place], [address], 04/23/2023 07:18:23 04/23/20 23 04/23/2023 CBC W/O DIFFE RENTI AL platelets 164 x10'3 /uL 150-40 0 Not Available [facility] (Lab) [address] [place], [address], 04/23/2023 07:18:23 04/23/20 23 04/23/2023 CBC W/O DIFFE RENTI AL mean platelet volume 10.7 fL 9.0-12 .4 Not Available [facility] (Lab) [address] [place], [address], 04/23/2023 07:18:23 04/23/20 23 04/23/2023 BASIC METAB OLIC PANEL sodium 139 mmol/ L 137-14 5 Not Available [facility] (Lab) [address] [place], [address], 04/23/2023 07:43:42 04/23/2004/23/2023 BASIC METAB OLIC PANEL potassium 4.3 mmol/ L 3.5-5. 1 Not Available [facility] (Lab) [address] [place], [address], 04/23/2023 07:43:42 04/23/2004/23/2023 BASIC METAB OLIC PANEL chloride 106 mmol/ L 98-107 Not Available [facility] (Lab) [address] [place], [address], 04/23/2023 07:43:42 04/23/20 23 04/23/2023 BASIC METAB OLIC PANEL carbon dioxide 25 mmol/ L 22-30 Not Available [facility] (Lab) [address] [place], [address], 04/23/2023 07:43:42 04/23/20 23 04/23/2023 BASIC METAB OLIC PANEL anion gap 12.3 mmol/ L 14-22 low Not Available [facility] (Lab) [address] [place], [address], 04/23/2023 07:43:42 04/23/20 23 04/23/2023 BASIC METAB OLIC PANEL glucose 102 mg/dL 70-99 high Not Available [facility] (Lab) [address] [place], [address], 04/23/2023 07:43:42 04/23/20 23 04/23/2023 BASIC METAB OLIC PANEL BUN 8 mg/dL 8-19 Not Available [facility] (Lab) [address] [place], [address], 04/23/2023 07:43:42 04/23/20 23 04/23/2023 BASIC METAB OLIC PANEL creatinine 0.67 mg/dL 0.66-1 .25 Not Available [facility] (Lab) [address] [place], [address], 04/23/2023 07:43:42 04/23/2004/23/2023 BASIC METAB OLIC PANEL GFR >60 Refer ence Range : [place] ge GFR Healt hy Adult : >60 mL/mi n/1.7 3 m2 Chron ic Kidne y Disea se: 15-60 mL/mi n/1.7 3 m2 Kidne y Failu re: <15/m L/min /1.73 m2 www.n iddk. nih.g ov The MDRD study equat ion has not been valid ated in child claire <18 years of age; pregn ant women ; the elder ly >85 years of age; or in some racia l or ethni c subgr oups, such as Hisil nics. Outsi de the valid ated maxwell eters , estim ated GFR is less accur ate, requi ring clini ophelia judgm ent on a case- by-ca se basis . Clini ophelia inter preta tion for other races and ages must be made by the clini vic. The MDRD study equat ion has not been valid ated for the evalu ation of serum creat inine relat ed to nutri paolo l statu s or medic ation usage . For perso ns <18 years of age, a pedia tric GFR calcu lator is avail able on the [facility] websi te: https ://erwin johnson.cisco rg/pr dalliness curtal s/kdo qi/gf r_cal culat or Not Available [facility] (Lab) [address] [place], [address], 04/23/2023 07:43:42 04/23/2004/23/2023 BASIC METAB OLIC PANEL calcium 8.8 mg/dL 8.4-10 .2 Not Available [facility] (Lab) [address] [place], [address], 04/23/2023 07:43:42 05/16/19 24 05/16/2023 CBC/C OMPLE TE BLD COUNT W/DIF F white blood cells 10.6 x10'3 /uL 4.2-10 .8 Not Available [facility] (Lab) [address] [place], [address], 05/16/2023 16:14:41 05/16/19 24 05/16/2023 CBC/C OMPLE TE BLD COUNT W/DIF F red blood cells 4.17 x10'6 /uL 3.80-5 .20 Not Available [facility] (Lab) [address] [place], [address], 05/16/2023 16:14:41 05/16/19 24 05/16/2023 CBC/C OMPLE TE BLD COUNT W/DIF F hemoglobin 13.9 g/dL 12.0-1 5.6 Not Available [facility] (Lab) [address] [place], [address], 05/16/2023 16:14:41 05/16/19 24 05/16/2023 CBC/C OMPLE TE BLD COUNT W/DIF F hematocrit 40.9 % 35.7-4 5.7 Not Available [facility] (Lab) [address] [place], [address], 05/16/2023 16:14:41 05/16/19 24 05/16/2023 CBC/C OMPLE TE BLD COUNT W/DIF F mean red cell volume 98.1 fL 82.0-9 9.0 Not Available [facility] (Lab) [address] [place], [address], 05/16/2023 16:14:41 05/16/19 24 05/16/2023 CBC/C OMPLE TE BLD COUNT W/DIF F mean red cell hemoglobin 33.3 pg 27.0-3 3.0 high Not Available [facility] (Lab) [address] [place], [address], 05/16/2023 16:14:41 05/16/19 24 05/16/2023 CBC/C OMPLE TE BLD COUNT W/DIF F mean RBC HGB concentratio n 34.0 g/dL 31.0-3 6.0 Not Available [facility] (Lab) [address] [place], [address], 05/16/2023 16:14:41 05/16/19 24 05/16/2023 CBC/C OMPLE TE BLD COUNT W/DIF F red cell distribution width 12.4 % 11.8-1 5.5 Not Available [facility] (Lab) [address] [place], [address], 05/16/2023 16:14:41 05/16/19 24 05/16/2023 CBC/C OMPLE TE BLD COUNT W/DIF F platelets 319 x10'3 /uL 150-40 0 Not Available [facility] (Lab) [address] [place], [address], 05/16/2023 16:14:41 05/16/19 24 05/16/2023 CBC/C OMPLE TE BLD COUNT W/DIF F mean platelet volume 10.0 fL 9.0-12 .4 Not Available [facility] (Lab) [address] [place], [address], 05/16/2023 16:14:41 05/16/19 24 05/16/2023 CBC/C OMPLE TE BLD COUNT W/DIF F neutrophils 81.2 % 39.0-7 2.0 high Not Available [facility] (Lab) [address] [place], [address], 05/16/2023 16:14:41 05/16/19 24 05/16/2023 CBC/C OMPLE TE BLD COUNT W/DIF F lymphocytes 14.9 % 16.0-4 7.0 low Not Available [facility] (Lab) [address] [place], [address], 05/16/2023 16:14:41 05/16/19 24 05/16/2023 CBC/C OMPLE TE BLD COUNT W/DIF F monocytes 2.7 % 5.0-12 .0 low Not Available [facility] (Lab) [address] [place], [address], 05/16/2023 16:14:41 05/16/19 24 05/16/2023 CBC/C OMPLE TE BLD COUNT W/DIF F eosinophils 0.2 % 1.0-7. 0 low Not Available [facility] (Lab) [address] [place], [address], 05/16/2023 16:14:41 05/16/19 24 05/16/2023 CBC/C OMPLE TE BLD COUNT W/DIF F basophils 0.5 % 0.0-2. 0 Not Available [facility] (Lab) [address] [place], [address], 05/16/2023 16:14:41 05/16/19 24 05/16/2023 CBC/C OMPLE TE BLD COUNT W/DIF F immature granulocytes 0.5 % 0.00-0 .50 Not Available [facility] (Lab) [address] [place], [address], 05/16/2023 16:14:41 05/16/19 24 05/16/2023 CBC/C OMPLE TE BLD COUNT W/DIF F neutrophils, absolute count 8.64 x10'3 /uL 1.5-8. 0 high Not Available [facility] (Lab) [address] [place], [address], 05/16/2023 16:14:41 05/16/19 24 05/16/2023 CBC/C OMPLE TE BLD COUNT W/DIF F lymphocytes, absolute count 1.59 x10'3 /uL 1.07-3 .43 Not Available [facility] (Lab) [address] [place], [address], 05/16/2023 16:14:41 05/16/19 24 05/16/2023 CBC/C OMPLE TE BLD COUNT W/DIF F monocytes, absolute count 0.29 x10'3 /uL 0.29-0 .99 Not Available [facility] (Lab) [address] [place], [address], 05/16/2023 16:14:41 05/16/19 24 05/16/2023 CBC/C OMPLE TE BLD COUNT W/DIF F eosinophils, absolute count 0.02 x10'3 /uL 0.02-0 .53 Not Available [facility] (Lab) [address] [place], [address], 05/16/2023 16:14:41 05/16/19 24 05/16/2023 CBC/C OMPLE TE BLD COUNT W/DIF F basophils, absolute count 0.05 x10'3 /uL 0.01-0 .08 Not Available [facility] (Lab) [address] [place], [address], 05/16/2023 16:14:41 05/16/19 24 05/16/2023 CBC/C OMPLE TE BLD COUNT W/DIF F immature granulocytes ,absolute 0.05 x10'3 /uL 0.00-0 .05 Not Available [facility] (Lab) [address] [place], [address], 05/16/2023 16:14:41 05/16/19 24 05/16/2023 CBC/C OMPLE TE BLD COUNT W/DIF F nucleated red blood cells 0.0 % -0 Not Available [facility] (Lab) [address] [place], [address], 05/16/2023 16:14:41 05/16/19 24 05/16/2023 CBC/C OMPLE TE BLD COUNT W/DIF F NRBC# 0.00 x10'3 /uL Not Available [facility] (Lab) [address] [place], [address], 05/16/2023 16:14:41 05/16/19 24 05/16/2023 SEDIM ENTAT ION RATE erythrocyte sedimentatio n rate 13 mm/HR 0-20 Not Available [facility] (Lab) [address] [place], [address], 05/16/2023 16:44:23 05/16/19 24 05/16/2023 C REACT MILY PROTE IN,UL TRA SENS C-reactive protein 0.29 mg/dL 0.0-0. 5 Not Available [facility] (Lab) [address] [place], [address], 05/16/2023 16:53:05 04/22/20 23 04/22/2023 XR, knee, 1 or 2 view [facility] [address] [place] [address] Patien t Name: DESTINI RODRIGUEZ Access ion #: [id number] Sex: F : 1965 2 Dictat ed By: Rajinder Lee Attend ing Physic lokesh: BARTOLOME TAMEZ Orderi ng Physic lokesh: BARTOLOME TAMEZ Exam Date: 2022 11:16 AM Exam Name: XR KNEE RT 2V Admitt ing Diagno sis(es ): right knee radiog raph CLINIC AL INDICA TION: rt total knee arthro plasty TECHNI QUE: 2 radiog raphic views of the right knee were obtain ed. Compar cesar: none FINDIN GS: There is no eviden ce of acute fractu re or disloc ation. Right total knee arthro plasty . Soft tissue swelli ng and subcut aneous emphys steve. IMPRES PADMINI: Right total knee arthro plasty . Soft tissue swelli ng and subcut aneous emphys steve. Electr onical ly Signed by: Rajinder Lee at 2022 11:29: 06 AM Page 1 [email or web address] [facility] ([facility]) [address] [facility], [place], [address], 04/22/2023 15:57:25 06/04/19 24 XR, knee No observ ation record ed. [facility] [place] [address], [place], [address], 06/15/2023 18:21:53 Result Notes None recorded. 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 4599324739586 105 Active 2022 Not Available [facility] 3 23:06:55 Tear of medial meniscus of knee 062906807 Active 2021 Not Available [facility] 3 23:06:55 Pain of left hip joint 7454975803005 00 Active 2021 Not Available [facility] 3 23:06:56 Trochanter ic bursitis of left hip 2909496272059 03 Active 2022 Not Available [facility] 3 23:06:56 Osteoarthr itis of left hip joint 2676662184733 08 Active 2021 Not Available [facility] 3 23:06:56 Osteoarthr itis of right knee joint 2380317402354 00 Active 2021 Not Available [facility] 3 23:06:56 Osteoarthr itis 040433435 Active 2021 Not Available [facility] 3 23:06:56 Pain of right knee joint 2628874899158 00 Active 2021 Not Available [facility] 3 23:06:56 Tear of lateral meniscus of knee 584225687 Active 2022 Phuc Paez MD [address] [facility], [address], [place], [address] , [facility] [employer] 3 10:54:00 Tear of lateral meniscus of knee 179203891 Active 2022 Phuc Paez MD [address], [address], [place], [address] , [facility] [employer] [facility] 3 10:54:04 History of right total knee replacemen t 4214255289890 102 Active 2022 Estefany Jose, [facility] null, [facility] [employer] [facility] 3 13:40:40 Problem Notes None recorded. Procedures Surgical History Date Name Laterality Status Provider Name and Address Organization Details Recorded Time 01/21/20 23 Ortho - Cortisone Injection completed Phuc Paez MD [address] [facility], [place], [address], [facility] [employer] [facility] 01/20/2023 09:56:00 10/11/19 23 Ortho - Cortisone Injection completed Phuc Paez MD [address], [address], [place], [address], [facility] [employer] [facility] 10/10/2022 11:39:08 07/23/19 23 Ortho - Cortisone Injection completed Phuc Paez MD [address], [address], [place], [address], [facility] [employer] [facility] 07/22/2022 10:34:21 Rotator cuff surgery completed Not Available [facility] 07/10/2022 23:05:09 Back Surgery completed Not Available [facility] 07/10/2022 23:05:09 Hysterectomy completed Not Available [facility] 07/10/2022 23:05:09 Knee completed Not Available [facility] 05/2022 23:05:09 Imaging Results None recorded. Procedure Notes None recorded. Medical Equipment None Reported. Allergies Allergen ID Allergen Name Allergen Category Reaction Reaction Severity Criticality Documentation Date Start Date Code Code System Note Provider Name and Address Organization Details Recorded Time 99339 Xanax medicatio n edema Not available Not available 07/10/202255394 3 RxNorm tongu e swell ing Not Available [facility] 23:10:15 [address]00 Chantix medicatio n other Not available Not available 07/10/2022 35374 0 RxNorm Sleep walki ng, const ant tired ness Not Available [facility] 3 23:10:15 Medications Name Sig Start Date Stop Date Status Note LastModified by Organization Details LastModified Time celecoxib 200 mg capsule TAKE 1 CAPSULE BY MOUTH TWICE DAILY NEEDED FOR SEVERE PAIN 07/22 completed Not Available Not Available Not Available fluoxetin e 40 mg capsule TAKE 1 CAPSULE BY MOUTH EVERY DAY active Not Available Not Available No t Available cyclobenz aprine 10 mg tablet TAKE 1 TABLET BY MOUTH THREE TIMES A DAY 07/22 completed Not Available Not Available Not Available bupropion HCl SR 150 mg tablet,12 hr sustained -release TAKE 1 TABLET BY MOUTH TWICE A DAY 11/15 completed Not Available Not Available Not Available prednison e 10 mg tablet PLEASE SEE ATTACHED FOR DETAILED DIRECTIO NS 02/21 completed Not Available Not Available Not Available doxycycli ne hyclate 100 mg capsule TAKE 1 CAPSULE BY MOUTH TWICE A DAY 7 DAYS 07/22 completed Not Available Not Available Not Available albuterol sulfate 2.5 mg/3 mL (0.083 %) solution for nebulizat ion INHALE 1 VIAL VIA NEBULIZE R EVERY 4 - 6 HOURS NEEDED FOR SHORTNES S OF BREATH OR WHEEZING 07/22 completed Not Available Not Available Not Available trazodone 50 mg tablet TAKE 1 TABLET BY MOUTH EVERY DAY AT BEDTIME NEEDED 07/22 completed Not Available Not Available Not Available cetirizin e 10 mg tablet 10 MG ORALLY EVERY DAY AT BEDTIME active Not Available Not Available No t Available azithromy erika 250 mg tablet TAKE 2 TABLETS BY MOUTH TODAY, THEN TAKE 1 TABLET DAILY FOR 4 DAYS 07/22 completed Not Available Not Available Not Available benzonata te 200 mg capsule TAKE 1 CAPSULE BY MOUTH THREE TIMES A DAY NEEDED FOR COUGH 07/22 completed Not Available Not Available Not Available acetamino phen 120 mg-codein e 12 mg/5 mL oral solution TAKE 7.5 ML BY MOUTH EVERY 8 HOURS NEEDED FOR PAIN 11/16 completed Not Available Not Available Not Available sumatript an 100 mg tablet TAKE 1 TABLET BY MOUTH ONCE, MAY REPEAT ONCE IN AT LEAST 2 HOURS. MAX 2 IN 24 HOURS 07/22 completed Not Available Not Available Not Available hydrocodo ne 5 mg-acetam inophen 325 mg tablet Take 1 tablet every 6 hours by oral route. 07/22 completed Not Available Not Available Not Available lisinopri l 20 mg tablet TAKE 1 TABLET BY MOUTH EVERY DAY 02/21 completed Not Available Not Available Not Available bupivacai ne HCl 0.5 % (5 mg/mL) injection solution Take 20 mg by injectio n route. 07/22 completed Not Available Not Available Not Available prednison e 20 mg tablet TAKE 2 TABLETS BY MOUTH ONCE DAILY FOR 5 DAYS 07/03 completed Not Available Not Available Not Available fluoxetin e 10 mg tablet TAKE 1 TABLET (10 MG) BY MOUTH DAILY. 05/07 completed Not Available Not Available Not Available fexofenad ine 180 mg tablet active Not Available Not Available No t Available sulfameth oxazole 800 mg-trimet hoprim 160 mg tablet TAKE 1 TABLET BY MOUTH EVERY 12 HOURS 07/22 completed Not Available Not Available Not Available hydrocodo ne 10 mg-acetam inophen 325 mg tablet TAKE 1 TABLET BY MOUTH EVERY 6 HOURS NEEDED 07/22 completed Not Available Not Available Not Available peg-elect rolyte solution 420 gram oral solution DILUTE AND DRINK DIRECTED STARTING AT 4PM DRINK A GLASS EVERY 15 MINUTES UNTIL FINISHED 11/15 completed Not Available Not Available Not Available tramadol 50 mg tablet Take 1 tablet every 6 hours by oral route. 07/22 completed Not Available Not Available Not Available amitripty line 50 mg tablet 11/15 completed Not Available Not Available Not Available acetamino phen 500 mg tablet TAKE 2 TABLETS BY MOUTH EVERY 6 HOURS 05/15 completed Not Available Not Available Not Available levothyro xine 25 mcg tablet TAKE 1 TABLET BY MOUTH EVERY DAY active Not Available Not Available No t Available prednison e 10 mg tablets in a dose pack Take 1 tab by mouth, 3 times a day for 3 daysTake 1 tab by mouth 2 times a day for 2 daysTake 1 tab by mouth once a day for 1 day 02/21 completed Not Available Not Available Not Available oxycodone -acetamin ophen 5 mg-325 mg tablet TAKE 1 TABLET BY MOUTH EVERY 4 HOURS 07/22 completed Not Available Not Available Not Available terbinafi ne HCl 250 mg tablet TAKE 1 TABLET BY MOUTH EVERY DAY 11/15 completed Not Available Not Available Not Available omeprazol e 10 mg capsule,d elayed release TAKE 2 CAPSULES BY MOUTH DAILY 11/15 completed Not Available Not Available Not Available trazodone 100 mg tablet TAKE 1 TABLET BY MOUTH EVERY DAY AT BEDTIME NEEDED active Not Available Not Available No t Available Kenalog 10 mg/mL suspensio n for injection Take 20 mg by injectio n route. 02/21 completed [facility]: [phone] 08-29 Not Available Not Available Not Available baclofen 10 mg tablet TAKE 1 TABLET (10 MG) BY MOUTH THREE TIMES A DAY NEEDED FOR MUSCLE SPASM active Not Available Not Available No t Available benzonata te 100 mg capsule TAKE 1 CAPSULE BY MOUTH EVERY 8 HOURS NEEDED 07/22 completed Not Available Not Available Not Available fluoxetin e 20 mg tablet TAKE 1 TABLET BY MOUTH EVERY DAY 05/07 completed Not Available Not Available Not Available nicotine 21 mg/24 hr daily transderm al patch 07/03 completed Not Available Not Available Not Available gabapenti n 300 mg capsule TAKE 1 CAPSULE BY MOUTH THREE TIMES A DAY 07/22 completed Not Available Not Available Not Available sertralin e 25 mg tablet TAKE 1 TABLET BY MOUTH DAILY 07/22 completed Not Available Not Available Not Available buspirone 7.5 mg tablet TAKE 1 TABLET BY MOUTH TWICE A DAY 07/22 completed Not Available Not Available Not Available omeprazol e 20 mg capsule,d elayed release TAKE 1 CAPSULE BY MOUTH EVERY DAY active Not Available Not Available No t Available diclofena c sodium 75 mg tablet,de layed release TAKE 1 TABLET BY MOUTH TWICE A DAY 02/21 completed Not Available Not Available Not Available folic acid 1 mg tablet 1 MG ORALLY DAILY active Not Available Not Available No t Available monteluka st 10 mg tablet TAKE 1 TABLET BY MOUTH EVERY DAY active Not Available Not Available No t Available codeine 10 mg-guaife nesin 100 mg/5 mL oral liquid TAKE 5 ML BY MOUTH EVERY 6 HOURS NEEDED FOR SEVERE COUGH 11/15 completed Not Available Not Available Not Available azelastin e 137 mcg (0.1 %) nasal spray USE 2 SPRAYS INTRANAS ALLY TWICE A DAY active Not Available Not Available No t Available ibuprofen 600 mg tablet TAKE 1 TABLET BY MOUTH THREE TIMES A DAY 02/21 completed Not Available Not Available Not Available cefuroxim e axetil 500 mg tablet TAKE 1 TABLET BY MOUTH EVERY 12 HOURS 02/21 completed Not Available Not Available Not Available polyethyl valerie glycol 3350 17 gram/dose oral powder MIX 17 GRAMS IN 8 OUNCES OF LIQUID AND DRINK ONCE DAILY 05/07 completed Not Available Not Available Not Available oxycodone -acetamin ophen 7.5 mg-325 mg tablet TAKE 1 TABLET BY MOUTH FOUR TIMES A DAY 11/15 completed Not Available Not Available Not Available methylpre dnisolone 4 mg tablets in a dose pack TAKE MEDROL DOSE PACK DIRECTED 05/21 completed Not Available Not Available Not Available albuterol sulfate HFA 90 mcg/actua tion aerosol inhaler INHALE 2 PUFFS BY MOUTH EVERY 4 HOURS active Not Available Not Available No t Available celecoxib 100 mg capsule TAKE 1 CAPSULE BY MOUTH TWICE A DAY active Not Available Not Available No t Available ondansetr on 4 mg disintegr ating tablet TAKE 1 TABLET BY MOUTH 3 TIMES A DAY NEEDED FOR NAUSEA AND VOMITING 07/22 completed Not Available Not Available Not Available cefdinir 300 mg capsule Take 1 capsule every 12 hours by oral route for 7 days. 2023 active Not Available Not Available Not Avai lable fluticaso ne propionat e 50 mcg/actua tion nasal spray,estela pension SPRAY 2 SPRAYS INTRANAS ALLY DAILY active Not Available Not Available No t Available amoxicill in 875 mg-potass ium clavulana te 125 mg tablet TAKE 1 TABLET ORALLY TWICE A DAY FOR 7 DAYS 07/22 completed Not Available Not Available Not Available buspirone 15 mg tablet 07/22 completed Not Available Not Available Not Available oxycodone 5 mg tablet TAKE 1 TABLET BY MOUTH EVERY 4 HOURS NEEDED completed Not Available Not Available Not Available ORTHOVISC 30 mg/2 mL intra-art icular syringe Injectio ns given in the office by the doctor. 07/22 completed [facility]: [phone] lot [id number] exp 06/11/19 24 Not Available Not Available Not Available Spiriva with [employer] r 18 mcg and inhalatio n capsules INHALE 1 CAPSULE BY MOUTH USING DEVICE ONCE DAILY active Not Available Not Available No t Available hydrocodo ne 5 mg-acetam inophen 300 mg tablet TAKE 1 TABLET BY MOUTH TWICE A DAY NEEDED 07/22 completed Not Available Not Available Not Available lidocaine (PF) 10 mg/mL (1 %) injection solution In office injectio n administ ered by the provider 07/03 completed [facility]: [phone] 6-17 Not Available Not Available Not Available Mucus Relief ER 600 mg tablet, extended release TAKE 1 TABLET BY MOUTH TWICE A DAY 02/21 completed Not Available Not Available Not Available Dulera 100 mcg-5 mcg/actua tion HFA aerosol inhaler INHALE 2 PUFFS BY MOUTH EVERY 12 HOURS RINSE AND SPIT AFTER EACH USE. 07/22 completed Not Available Not Available Not Available ropivacai ne (PF) 5 mg/mL (0.5 %) injection solution Take 20 mg by injectio n route. 02/21 completed [facility] [phone] 4- Not Available Not Available Not Available OptiChamb er Barbara [facility] spacer DIRECTED 11/16 completed Not Available Not Available Not Available Eliquis 2.5 mg tablet TAKE 1 TABLET BY MOUTH EVERY 12 HOURS 05/15 completed Not Available Not Available Not Available Stimulant Laxative Plus 8.6 mg-50 mg tablet TAKE 2 TABLETS BY MOUTH TWICE DAILY 06/12 completed Not Available Not Available Not Available Narcan 4 mg/actuat ion nasal spray USE DIRECTED [facility] ALL ONCE EVERY 2 3 MINUTES UNTIL EMERGENC Y HELP ARRIVES 07/03 completed Not Available Not Available Not Available Bevespi Aerospher e 9 mcg-4.8 mcg HFA aerosol inhaler 11/15 completed Not Available Not Available Not Available Seglentis 44 mg-56 mg tablet 2 TABLET ORALLY EVERY 12 HOURS NEEDED FOR PAIN 07/22 completed Not Available Not Available Not Available Vitals Date Recorded Body height Provider Name an d Address Organization Details Last Updated DateTime 05/15/2023 172.72 cm LIYAH Wills [place] [facility] [employer] [facility] 05/15/2023 12:50:18 Date Recorded Body height Provider Name an d Address Organization Details Last Updated DateTime 05/21/2023 172.72 cm Narcisa Dobbs Juan [facility] [employer] [facility] 05/21/2023 11:18:21 Date Recorded Body height Provider Name an d Address Organization Details Last Updated DateTime 06/04/2023 172.72 cm Narcisa Dobbs [facility] [employer] [facility] 06/04/2023 10:25:51 Date Recorded Body height Provider Name an d Address Organization Details Last Updated DateTime 06/12/2023 172.72 cm Narcisa Dobbs [facility] [employer] [facility] 06/12/2023 15:33:36 Date Recorded Body height Provider Name an d Address Organization Details Last Updated DateTime 07/10/2023 172.72 cm Narcisa Dobbs [facility] [employer] [facility] 07/10/2023 10:56:05 Social History Question Answer Notes LastModified by [employer] Details LastModified Time Tobacco Smoking Status Current Every Day Smoker Not Available [facility] 07/10/2022 23:04:34 How Much Tobacco Do You Smoke? 0.5 PPD [email or web address] Information not available 07/22/2022 Sex: Unknown Functional Status Question Answer Note LastModified by [employer] Details LastModified Time What is your level of alcohol consumption? Occasional [id number] Information not available 07/10/2022 Mental Status None recorded. Family History Relationship Description Onset Age of this Age Resolved Age Notes LastModified by Organization Details LastModified Time Mother Heart disease [id number] Not available 07/10/2022 23:05:11 Mother Family history of stroke [id number] [id number] Not available 07/10/2022 23:05:11 Mother Family history of malignant neoplasm [id number] [id number] Not available 07/10/2022 23:05:11 Mother Essential hypertension [id number] [id number] Not available 07/10/2022 23:05:11 Mother Diabetes mellitus [id number].220 [id number] Not available 07/10/2022 23:05:11 Father Family history of malignant neoplasm [id number].860 [id number] Not available 07/10/2022 23:05:11 Medical History Condition Response ARTHRITIS Y OSTEOPOROSIS Y COPD Y Gynecological HistoryNo gynecological history recorded. Obstetrics History GPAL:G 0 P 0 0 0 0 Past Encounters Encounter ID Performer Location Encounter Start Date Encounter Closed Date Diagnosis/Indication Diagnosis SNOMED-CT Code Diagnosis ICD10 Code Diagnosis Note [id number] LESLY Edge [facility] [address] [place] [address] 11/16/2020 00:00:00 11/16/2020 09:42:18 [id number] LESLY Edge [facility] [address] [place] [place] [address] 12/14/2020 00:00:00 12/14/2020 11:57:11 [id number] MD CADEN [facility] [address] [place] [address] 01/04/2021 00:00:00 01/04/2021 10:44:23 [id number] MD ALICE Ray [address] [address] 02/27/2021 00:00:00 02/27/2021 10:49:27 [id number] MD ALICE Ray [address] [address] 03/13/2021 00:00:00 03/13/2021 10:37:48 [id number] MD CADEN [facility] [address] [facility] [place] [address] 03/29/2021 00:00:00 03/29/2021 15:07:24 [id number] MD ALICE Ray [address] [address] 04/24/2021 00:00:00 04/24/2021 09:50:35 [id number] MD TESSA [facility] [address] [address] 05/22/2021 00:00:00 05/22/2021 09:52:28 [id number] MD CADEN [facility] [address] [address] 07/03/2021 00:00:00 07/03/2021 10:30:25 [id number] Phuc Paez MD [facility] [address] [place] [address] 07/18/2021 00:00:00 07/18/2021 10:05:47 [id number] Phuc Paez MD [facility] [address] [place] [address] 08/27/2021 00:00:00 08/27/2021 10:56:40 [id number] Phuc Paez MD [facility] [address] [place] [address] 09/03/2021 00:00:00 09/03/2021 10:48:51 [id number] Phuc Paez MD [facility] [address] [place] [address] 09/10/2021 00:00:00 09/10/2021 11:22:38 [id number] Phuc Paez MD [facility] [address] [place] [address] 12/20/2021 00:00:00 12/20/2021 14:15:27 [id number] Phuc Paez MD [facility] [address] [place] [address] 01/17/2022 00:00:00 01/17/2022 12:57:42 [id number] Phuc Paez MD [facility] [address] [place] [address] 02/25/2022 00:00:00 02/25/2022 11:19:08 [id number] Phuc Paez MD [facility] [address] [place] [address] 03/18/2022 00:00:00 03/18/2022 11:48:14 [id number] Phuc Paez MD [facility] [address] [place], [place] [address] 04/01/2022 00:00:00 04/01/2022 10:31:10 [id number] Phuc Paez MD [facility] [address] [place], [place] [address] 06/17/2022 00:00:00 06/17/2022 10:21:18 [id number] Phuc Paez MD [facility] [address] [place], [place] [address] 07/22/2022 09:27:11 07/22/2022 10:39:35 History of total replacement of left hip joint 4046450310 627514 Z96.642 Osteoarthritis 733207269 M16.12 Tear of me dial meniscus of knee 064620751 S83.241D Pain of le ft hip joint 5254025885 72974 M25.552 Osteoarthr itis of right knee joint 5754143587 33048 M17.11 Trochanter ic bursitis of left hip 2361288094 21251 M70.62 [id number] Phuc Paez MD [facility] [address] [place], [place] [address] 08/19/2022 10:35:39 08/19/2022 11:46:31 History of total replacement of left hip joint 4166611485 163431 Z96.642 Osteoarthritis 939817435 M16.12 Tear of me dial meniscus of knee 009659499 S83.241D Pain of le ft hip joint 3262821933 86941 M25.552 Trochanter ic bursitis of left hip 1490818789 03662 M70.62 [id number] Phuc Paez MD [facility] [address] [place], [place] [address] 10/10/2022 10:39:20 10/10/2022 11:41:57 History of total replacement of left hip joint 3551410351 764129 Z96.642 Osteoarthritis 171400705 M16.12 Tear of me dial meniscus of knee 425986324 S83.241D Pain of ri ght knee joint 0096220141 13209 M25.561 Trochanter ic bursitis of left hip 3230482402 98113 M70.62 Pain of le ft hip joint 4921432386 25303 M25.552 [id number] Phuc Paez MD [facility] [address] [place] [address] 10/17/2022 10:31:07 10/17/2022 11:06:02 History of total replacement of left hip joint 5277274427 453791 Z96.642 Osteoarthritis 866369936 M16.12 Pain of ri ght knee joint 8502018883 43142 M25.561 Pain of le ft hip joint 8922019830 96281 M25.552 Trochanter ic bursitis of left hip 0177481298 26691 M70.62 Tear of la teral meniscus of knee 330710468 S83.281A [id number] Phuc Paez MD [facility] [address] [place] [address] 01/20/2023 09:34:06 01/20/2023 10:07:44 Osteoarthritis of right knee joint 8831618700 97453 M17.11 Pain of ri ght knee joint 1606762362 54213 M25.710 [id number] Bartolome Dent MD [facility] [address] [place] [address] 02/21/2023 08:55:33 02/24/2023 11:39:30 Osteoarthritis of right knee joint 8462180880 11278 M17.11 [id number] Bartolome Dent MD [facility] [address] [place] [address] 05/07/2023 09:38:11 05/07/2023 10:43:27 History of right total knee replacement 1076175870 862279 Z96.506 [id number] Bartolome Dent MD [address] [place] [address] 05/15/2023 12:27:33 06/02/2023 14:40:06 History of right total knee replacement 0768049214 972059 Z96.236 [id number] Bartolome Dent MD [facility] [address] [place] [address] 05/21/2023 11:14:41 05/21/2023 15:28:17 History of right total knee replacement 1013024278 699710 Z96.077 [id number] Bartolome Dent MD [facility] [address] [place] [address] 06/04/2023 10:10:36 06/09/2023 11:35:39 History of right total knee replacement 1293079374 969922 Z96.388 [id number] Bartolome Dent MD [facility] [address] [address] 06/12/2023 15:31:09 06/12/2023 15:54:11 History of right total knee replacement 7189151061 975264 Z96.691 [id number] Bartolome Dent MD [facility] [address] [address] 07/10/2023 10:52:51 07/10/2023 13:58:07 History of right total knee replacement 4345482868 558642 Z96.651 Health Concerns Section Related Observation LastModified by Organization Detai ls LastModified Time None Recorded Concern Status LastModified by Organization Details LastModified Time None Recorded Advance Directives Directive None Recorded Payers Encounter Date Sequence Insurance Name Policy Number Policy Rucker Covered Member ID Rucker Member ID Guarantor Name 05/15/2023 1 [facility] ON OR AFTER 11/09/20 (MEDICAID REPLACEMENT - HMO) Destini ridley [id number] Destini Lacey-Zack el 05/21/2023 1 [facility] ON OR AFTER 11/09/20 (MEDICAID REPLACEMENT - HMO) Destini ridley [id number] Destini Lacey-Zack el 06/04/2023 1 [facility] ON OR AFTER 11/09/20 (MEDICAID REPLACEMENT - HMO) Destini ridley [id number] Destini Burton el 06/12/2023 1 [facility] ON OR AFTER 11/09/20 (MEDICAID REPLACEMENT - HMO) Destini Cecilio ridley [id number] Destini armenta 07/10/2023 1 [facility] ON OR AFTER 11/09/20 (MEDICAID REPLACEMENT - HMO) Destini RobbReji ridley [id number] Destini Josephine armenta Notes Date Note Type Note Provider Name and Address Organization Details Recorded Time 05/15/2023 text/html Patient returns. She is 23 days after right total knee arthroplasty. She was doing very well this past week walking around the house and very active yesterday with no discomfort and then when she woke 830 this morning she had severe pain in the back of her knee when she tried to move it. She stopped using the pain medications last evening when she ran out. She has been taking the Tylenol 2 tablets every 6 hours. She has been taking 100 mg of Celebrex daily. She went through physical therapy 2 days ago and did very well. She has had 3 times physical therapy visits thus far. She went for a 10 days band without physical therapy prior to 2 days ago. [facility] apparently lost her order for therapy but this has been corrected. She is taking the baby aspirin twice daily. She is taking omeprazole daily she has a history of acid reflux and not having any GI symptoms. MD Lucille Sandoval [facility] [place] [place], [address], [employer] 06/01/2023 17:46:59 06/04/2023 text/html patient returns. She is now 6 weeks after right total knee arthroplasty. She is walking well without gait aid. She complains that starting yesterday she noticed that she has a faint erythema that surrounds the distal 2/3 of the incision. She does note there quadriceps knots up sometimes. She has had no fevers or chills. MD Lucille Sand[address], [place], [address], [employer] 06/15/2023 18:23:39 OBGyn Episode No OBEpisode recorded.
--- OUTSIDE RECORDS SUMMARY | 2024-10-19 15:13 | XMS_ITS | Clinical Summary ---
Author Organization [facility] [employer] Address [address] [place] [address] Care Team Providers Care Lap Maker Name Role Phone Shabbir Lares Dinh MOLINA Primary Care Provider [phone] Source Comments [facility] [employer],non-owned Affiliates and Associated Physician Practices is amultiple site organization consisting of ambulatory clinics and hospital sitesin [place], [place], [place] and [place]. This disclosure is being madepursuant to the Care Everywhere program and may not contain all information available regarding this patient. 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 Gender Identity Not on file Sexual Orientation Not on file Plan of Treatment Health Maintenance Due Date Last Done Comments COLOGUARD (AGES 45-75) - COL ON CA SCREENING 1963 COLON MONITORING 1963 COLONOSCOPY - COLON CA SCREENING 1963 CT COLONOGRAPHY - COLON CA SCREENING 1963 Colorectal Cancer Screening 1963 FIT - COLON CA SCREENING 1963 FLEX SIG - COLON CA SCREENING 1963 LIPID TESTING 1963 MAMMOGRAM 1963 HIV SCREENING 11/23/1978 HEPATITIS C SCREENING 11/19/1981 DTAP/TDAP/TD VACCINES (1 - Tdap) 11/23/1982 PAP SMEAR 01/31/2001 01/31/1998 PNEUMOCOCCAL VACCINE 50+ (1 of 1 - PCV) 11/23/2013 ZOSTER VACCINE (1 of 2) 11/23/2013 COVID-19 VACCINE (1 - 2023-2 5 season) 2024 DEPRESSION SCREENING 05/12/2024 INFLUENZA VACCINE (Season Ended) 2025 Respiratory Syncytial Virus (RSV) Vaccine Pt: or over 60 yrs (1 - 1-dose 75+ series) 11/23/2038 HEPATITIS B VACCINE Aged Out No longe r eligible based on patient's age to complete this topic HIB VACCINE Aged Out No longer eligi ble based on patient's age to complete this topic HPV VACCINE Aged Out No longer eligi ble based on patient's age to complete this topic MENINGOCOCCAL (Group B) VACC INE SHARED DECISION-MAKING Aged Out No longer eligibl e based on patient's age to complete this topic MENINGOCOCCAL GROUPS A/C/Y/W VACCINE Aged Out No longer eligible b ased on patient's age to complete this topic Procedures Procedure Name Priority Date/Time Associated Diagnosis Comments CYTOLOGY SMEAR PAP MILADY 01/31/1998 7: 56 AM CDT from Last 3 Months or Most Recently Relevant to Health Maintenance Results * CYTOLOGY SMEAR PAP (01/31/1998 7:56 AM CDT) Result CASE NUMBER [id number] Comment: ORDERING PHYSICIAN RUTHANN BENAVIDEZ SPECIMEN TYPE PAP Smear Date 01/31/1998 Procedure Cervical/Endocervical Vaginal 1 smear received Specimen Adequacy Satisfactory for Evaluation Categorization Benign Cellular Changes Comment Reactive Cellular Changes Associated with Inflammation Snomed. 02/17/1998 1019 <1> Color Control Supervisor Isidra Jimenez (ASCP) Pathologist. Celio Johnson M.D. PAP Footnote The PAP smear is only a screening procedure to aid in the detection of cervical cancer and its precursors. It is not a diagnostic procedure and should not be used as the sole means to detect cervical cancer. Both false negative and false positive results have been experienced. MISCELLANEOUS SAMPLES / Unknown 01/31/1998 7:56 AM CDT 02/01/1998 7:56 AM CDT Historical Provider LAB - PATHOLOGY/CYTOLOGY ORDERABLES Final Result from Last 3 Months or Most Recently Relevant to Health Maintenance Insurance [facility] SELF PAY NO INSURANCE Member Subscriber Plan / Payer (Ef fective for All Dates) Name:Yonas Maradiaga Member ID:Not on file Relation to Subscriber:Not on file Name:YONAS MARADIAGA Subscriber ID:Not on file (Home) Address: [address] [place] [id number] Payer ID:Not on file Group ID:Not on file Type:Self Pay Address: [place], [place] [facility] Care Teams Lap Maker Relationship Specialty Start Date End Date Shabbir Lares DO [address] [facility] [place] [address] [place] [address] PCP - General 09/27/20
--- NOTE | 2024-10-20 10:56 | WPDSIXMINUTE ---
Six Minute Walk Procedure Procedure Performed Pulmonary Stress Test (6 min walk) Six Minute Walk Six Minute Walk: This is a 6 minute walk test. The test was performed and interpreted in accordance with the 2014 ERS/ATS task force guidelines. Findings: The patient's resting room air oxygen saturation measured by pulse oximetry was 96%, the heart rate was 79 bpm, and the modified Letitia dyspnea score was 0. Patient ambulated for 335 meters and oxygen saturation remained 94 to 98%. At the end of the study the heart rate was 100 bpm and the modified Letitia dyspnea score was 0 to 0.5. The patient did not qualify for supplemental oxygen at rest or with ambulation. There are no prior studies for comparison.
--- NOTE | 2024-10-20 10:58 | WPDPFTINT ---
PFT Procedure Performed PFT Procedure Performed Spirometry with Pre/Post Bronchodilator Plethysmography (Lung Vol) Diffusing Cap (DLCO) Flow Vol Loop PFT Interpretation This is a pulmonary function test with pre and post-bronchodilator spirometry, plethysmography and diffusing capacity. The test was performed and results interpreted in accordance with the 2019 and 2005 ATS/ERS Task Force guidelines respectively using the Global Lung Function Initiative-2012 reference equations. Patient demonstrated good effort and cooperation. Reproducibility criteria were met. The quality of the pre bronchodilator spirometry maneuver was Grade A and post bronchodilator spirometry maneuver was Grade A. Findings: Spirometry: There is decreased maximal expiratory airflow at all lung volumes with concave expiratory flow tracing. The contour the inspiratory flow tracing is normal. The pre bronchodilator FVC is 3.74 L, 102% predicted. The pre bronchodilator FEV1 is 2.34 L, 82% predicted. The pre bronchodilator FEV1: FVC ratio is 63%. The post bronchodilator FVC is 3.88 L, representing a 4% increase. The post bronchodilator FEV1 is 2.54 L, representing an 8% increase. The post bronchodilator FEV1: FVC ratio 65%. Plethysmography: The total lung capacity is 6.43 L, 113% predicted. The functional residual capacity is 3.89 L, 120% predicted. The residual volume is 2.69 L, 123% predicted. Diffusing capacity: The diffusing capacity unadjusted for hemoglobin and carboxyhemoglobin is 16.7, 72% predicted. The diffusing capacity adjusted for alveolar volume is 3.31, 78% predicted. Impression: There is a mild obstructive abnormality with a normal FEV1. There is no significant improvement after inhaling a single dose of albuterol. The lung volumes are normal. The diffusing capacity is normal. There are no prior studies for comparison
== END 2024-10-19 13:55 | disposition home or self-care (01) ==
PROVIDERS: Visit Provider Physician Assistant
DX: Z12.2 Encounter for screening for malignant neoplasm of respiratory organs (principal); J44.9 Chronic obstructive pulmonary disease, unspecified; Z87.891 Personal history of nicotine dependence
CPT/HCPCS: 71271; 94060; 94618; 94726; 94729

== ENCOUNTER 2024-10-28 12:32 | Outpatient (CLI) | payer OTHER, SELFPAY ==
--- NOTE | ~2024-10-28 | XR_ITS ---
XR sacrum coccyx min 2V Ordering provider: Pastora France APRN History: . M47.816 - Spondylosis without myelopathy or radiculopathy... . Comparison: None. FINDINGS: BONES: Postoperative changes at the level of L5-S1 disc spacer. No acute fracture or dislocation. Sev ere bending of the coccyx. JOINTS: The sacroiliac joint spaces are normal. Left hip arthroplasty. SOFT TISSUES: Soft tissues are normal. IMPRESSION: No acute osseous abnormality sacrum and coccyx. Reviewed, dictated and finalized at location A.
--- NOTE | ~2024-10-28 | PE_ITS ---
EXAMINATION: PET skull to mid thigh DATE: 10/28/2024 14:20 INDICATION: Solitary pulmonary nodule TECHNIQUE: Blood glucose level was 109 mg/dL. 8.968 mCi of 18-fluorodeoxyglucose (18-FDG) was adminis tered i.v. Low dose computed tomography (CT) images were acquired from the base of the brain to the p roximal thighs for attenuation correction and anatomic localization. Positron emission tomography (PE T) images were acquired in the same distribution beginning 57 minutes after injection. Images includi ng fused PET/CT images were reconstructed in axial, coronal, and sagittal planes. Automated exposure control technique was employed. The dose-length product was 714.58mGy-cm. COMPARISON: CT dated 10/19/2024 FINDINGS: Head/neck: There is symmetric increased activity in the oral cavity, palatine tonsils, parotid glands, submandi bular glands, laryngeal muscles and ocular muscles without CT correlate, likely physiologic. Mildly e nlarged and mildly FDG avid left-sided level 2 jugular chain lymph node measuring 11 mm in maximal sh ort axis diameter with maximal SUV of 4.2. No other pathologically enlarged cervical lymphadenopathy or suspicious foci of increased FDG uptake in the visualized head or neck. Chest: Moderate emphysema with mild biapical pleural-parenchymal scarring. There is increased uptake with ma ximal SUV of 8.5 associated with an 8 mm right apical nodule. Calcified left upper lobe nodule and ca lcified left hilar and mediastinal lymph nodes consistent with old granulomatous disease. Mild bibasi lar atelectasis. Heart size is normal. Small amount of atherosclerotic coronary artery catheter locat ion. No pericardial effusion. Thoracic aorta is normal in caliber. No pathologically enlarged or FDG avid thoracic lymphadenopathy. Abdomen/pelvis/proximal thighs: Physiologic renal accumulation and excretion of FDG activity in the kidneys, bladder and along portio ns of ureters. Normal degree and heterogenous pattern of increased uptake throughout the liver withou t radiologic correlate or dominant FDG avid lesion. Multiple splenic calcifications consistent with o ld granulomatous disease. The gallbladder, pancreas and bilateral adrenal glands are normal. Mild upt millie scattered throughout the bowels without radiologic correlate, also likely physiologic. Normal harsha endix. No other abnormal foci of increased FDG uptake or pathologically enlarged lymphadenopathy in t he abdomen, pelvis or proximal thighs. Musculoskeletal: Left total hip arthroplasty. There is mild likely physiologic uptake without radiologic correlate perry ng the left posterior paraspinal musculature of the thoracic spine and at the bilateral teres minor m uscles at the shoulders. There is mild likely degenerative uptake associated with severe facet osteoa rthritis at. Levels in the lower thoracic and lower lumbar spine. No suspicious lytic, blastic or abn ormally FDG avid bone lesions. IMPRESSION: 1. Moderate increased FDG uptake associated with chronic enlarging 8 mm right upper lobe nodule consi stent with primary bronchogenic carcinoma. Could consider percutaneous CT-guided biopsy although this would be technically challenging given the relatively small size of the nodule. Reviewed, dictated and finalized at location A. IMPRESSION: 1. Moderate increased FDG uptake associated with chronic enlarging 8 mm right u pper lobe nodule consistent with primary bronchogenic carcinoma. Could consider percutaneous CT-guided biopsy although this would be technically challenging g iven the relatively small size of the nodule.
--- NOTE | ~2024-10-28 | XR_ITS ---
3 VIEWS LUMBAR SPINE Ordering provider: Pastora France, GLOBAL CONSUMER SECTOR VICE PRESIDENT History: . M47.816 - Spondylosis without myelopathy or radiculopathy... . Comparison: September 07, 2019 FINDINGS: VERTEBRAL BODIES: Dextroscoliosis. Minimal anterolisthesis at the level of L4-L5. No visible fractur e or subluxation. DISK SPACES: Disc spacer at the level of L5-S1. Narrowing of the disc L2-L3, L3-4 and L4-L5. SOFT TISSUES: Atherosclerotic changes of the aorta. IMPRESSION: No acute osseous abnormality lumbar spine. Multilevel degenerative disc disease. Reviewed, dictated and finalized at location A.
--- OUTSIDE RECORDS SUMMARY | 2024-10-28 12:52 | XMS_ITS | Clinical Summary ---
Author Organization [facility] [employer] Address [address] [place] [address] Care Team Providers Care Steel Tier Name Role Phone Shabbir Lares Dinh MOLINA Primary Care Provider [phone] Source Comments [facility] [employer],non-owned Affiliates and Associated Physician Practices is amultiple site organization consisting of ambulatory clinics and hospital sitesin [place], [place], [place] and [place]. This disclosure is being madepursuant to the Care Everywhere program and may not contain all information available regarding this patient. 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 02/17/1998 1019 <1> Asbestos Surveyor Isidra Jimenez (ASCP) Pathologist. Celio Johsnon M.D. PAP Footnote The PAP smear is [...] Most Recently Relevant to Health Maintenance Insurance [facility] SELF PAY NO INSURANCE Member Subscriber Plan / Payer (Ef fective for All Dates) Name:Yonas Maradiaga Member ID:Not on file Relation to Subscriber:Not on file Name:YONAS MARADIAGA Subscriber ID:Not on file (Home) Address: [address] [place] [id number] Payer ID:Not on file Group ID:Not on file Type:Self Pay Address: [place], [place] [facility] Care Teams Steel Tier Relationship Specialty Start Date End Date Shabbir Lares DO [address] [facility] [address] [place] [address] PCP - General 09/27/20
[2024-10-28 12:53] LABS: Glucose Point of Care 109 mg/dl (65-105)
== END 2024-10-28 12:33 | disposition home or self-care (01) ==
PROVIDERS: PCP Internal Medicine; Referring Provider Nurse Practitioner Adult Health; Visit Provider Physician Assistant
DX: M51.369 Other intervertebral disc degeneration, lumbar region without mention of lumbar back pain or lower extremity pain (principal); R91.1 Solitary pulmonary nodule; Z98.890 Other specified postprocedural states
CPT/HCPCS: 72114; 72220; 78815; A9552

== ENCOUNTER 2025-02-10 11:43 | Outpatient (CLI) | payer OTHER, SELFPAY ==
--- OUTSIDE RECORDS SUMMARY | 2025-02-10 12:02 | XMS_ITS | Clinical Summary ---
Author Organization [facility] Address [address] [place] [id number] Care Team Providers Care Uniform Maker Name Role Phone Hank Varghese Primary Care Provider Allergies Active Allergy Reactions Criticality Noted Date Comments Alprazolam Edema,Swelling Medium 09/28/2014 Swelling Varenicline Other (See comments) Low 08/21/2021 Medications albuterol HFA (PROVENTIL HFA,VENTOLIN HFA,PROAIR HFA) 90 mcg/actuation inhaler albuterol sulfate HFA 90 mcg/actuation aerosol inhaler Active azelastine (ASTELIN) 137 mcg (0.1 %) nasal spray Administer into each nostril 2 (two) times a day 2 Active benzonatate (TESSALON) 200 mg capsule TAKE 1 CAPSULE BY MOUTH THREE TIMES A DAY NEEDED FOR COUGH 2 Active cetirizine (ZyrTEC) 10 mg tablet Take 10 mg by mouth nightly at bedtime. 2 Active fluticasone propionate (FLONASE) 50 mcg/actuation nasal spray 2 sprays daily 2 Active HYDROcodone-rodo taminophen (NORCO) 5-325 mg per tablet Take 1 tablet by mouth every 12 (twelve) hours as needed for pain 2 Active levothyroxine (SYNTHROID) 25 mcg tablet Take 25 mcg by mouth daily 2 Active Dulera 100-5 mcg/actuation inhaler INHALE 2 PUFFS BY MOUTH EVERY 12 HOURS RINSE AND SPIT AFTER EACH USE. 2 Active montelukast (SINGULAIR) 10 mg tablet Take 10 mg by mouth daily 2 Active omeprazole (PriLOSEC) 20 mg capsule omeprazole 20 mg capsule,delayed release Active Spiriva with HandiHaler 18 mcg per inhalation capsule 2 Active cyclobenzaprine (FLEXERIL) 10 mg tablet TAKE 1 TABLET BY MOUTH THREE TIMES A DAY 90 tablet 2 Active gabapentin (NEURONTIN) 300 mg capsule TAKE 1 CAPSULE BY MOUTH THREE TIMES A DAY 90 capsule 2 2 Active Active Problems Patient Care Coordination No te Formatting of this note migh t be different from the original. Amy Love NP 02/08/2025 1248 This is a 59-year-old female patient presenting to the clinic today in consultation for a lung nodule. She was referred to the clinic by BOOGIE London. She has a past medical history significant for anxiety, hyperlipidemia, hypothyroidism, IBS with constipation, GERD, osteoarthritis, migraines, COPD, obstructive sleep apnea, nicotine dependence, chronic pain, and depression. She has a pack per day smoker and has been for the past 43 years. She underwent an updated CT of the chest without contrast on 02/03/2025 at the [facility] outpatient center in [place], [place] which reveals: Stable size of the spiculated previously FDG avid right upper lobe nodule which remains concerning for a malignant process. No new masses or lymphadenopathy identified. Severe emphysematous change. She underwent a PET scan [facility] on 10/28/2024 which reveals: Moderate increased FDG uptake associated with chronic enlarging 8 mm right upper lobe nodule consistent with primary bronchogenic carcinoma. Could consider percutaneous CT-guided biopsy although this would be technically challenging given the small size of the nodule. She underwent a pulmonary function test on 10/19/2024 at [facility] in [facility] which reveals an FEV 1 of 82% predicted, a DLCO of 72% predicted and the following: There is a mild obstructive abnormality with a normal FEV 1. There was no significant improvement after inhaling a single dose of albuterol. The lung volumes are normal. The diffusing capacity is normal. There are no prior studies for comparison. All imaging available on file for review. She is here for further surgical evaluation and discussion. Problem Noted Date Diagnosed Date GERD (gastroesophageal reflux disease) 09/17/202 5 Hyperlipidemia 01/26/2025 Hypersomnolence 01/26/2025 Hypothyroidism 01/26/2025 Irritable bowel syndrome with constipation 01/26 Migraines 01/26/2025 Nicotine dependence 01/26/2025 IVAN (obstructive sleep apnea) 01/26/2025 COPD (chronic obstructive pulmonary disease) History of total right knee replacement 04/15/20 History of total left hip replacement 06/16/2022 Osteoarthritis 09/03/2021 Encounters Date Type Department Care Team Description 02/03/2025 10:15 AM CDT - 02/03/2025 11:59 PM CDT Hospital Encounter [address] [address] Lung nodule Discharge Disposition: Discharge to home or self care 01/28/2025 Telephone [facility] [address] [place] [address] [address] [place] [phone] Katerina Pulido CMA 01/26/2025 10:47 AM CDT - 01/26/2025 11:59 PM CDT Hospital Encounter [facility] [address] [place] [id number] Discharge Disposition: Discharge to home or self care 01/26/2025 10:46 AM CDT - 01/26/2025 11:59 PM CDT Hospital Encounter [facility] [address] [place] [address] Diagnosis unknown Discharge Disposition: Discharge to home or self care 01/26/2025 Telephone [facility] [address] [place] [address] [address] [place] [address] Katerina Pulido CMA 01/26/2025 Orders Only [facility] [address] [place] [address] [address] [place] [address] George Bermeo MD Lung nodule (Primary Dx) 01/26/2025 Orders Only [facility] [address] [place] [address] [address] [place] [address] George Bermeo MD Lung nodule (Primary Dx) from Last 3 Months Surgical History Surgery Date Site/Laterality Comments SHOULDER SURGERY KNEE SURGERY 02/14/2021 Right Torn meniscus repair BACK SURGERY OOPHORECTOMY Right REPLACEMENT TOTAL KNEE Right REPLACEMENT TOTAL KNEE Left Medical History Medical History Date Comments Arthritis Osteoarthritis Fatigue Chronic pain Neck pain and ba ck pain Depression Hyperlipidemia Hypothyroidism IBS (irritable bowel syndrome) GERD (gastroesophageal reflux disease) Migraines COPD (chronic obstructive pulmonary disease) IVAN (obstructive sleep apnea) Nicotine dependence Anxiety Family History Medical History Relation Name Comments Heart disease Brother Cancer Father Cancer Mother Depression Mother Diabetes Mother Heart disease Mother Hypertension Mother Relation Name Status Comments Brother Father Mother Social History Tobacco Use Types Packs/Day Years Used Date Smoking Tobacco: Every Day Cigarettes 1 43 Smokeless Tobacco: Never Tobacco Cessation:Ready to Q uit: No AUDIT-C Answer Date Recorded Q1: How often do you have a drink containing alc ohol? 2-4 times a month 08/21/2021 Q2: How many drinks containi ng alcohol do you have on a typical day when you are drinking? 1 or 2 08/21/2021 Q3: How often do you have si x or more drinks on one occasion? 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[employer] Gender Identity Not on file Sexual Orientation Not on file Obstetrics History Last Filed Vital Signs Vital Sign Reading Time Taken Comments Blood Pressure 159/90 08/21/2021 12:49 PM CDT Pulse 86 08/21/2021 12:49 PM CDT Temperature 36.4 C (97.5 F) 08/21/2021 12:49 PM CDT Respiratory Rate 18 08/21/2021 12:49 PM CDT Oxygen Saturation 94% 08/21/2021 12:49 PM CDT ra Inhaled Oxygen Concentration - - Weight 77.1 kg (170 lb) 08/21/2021 12:49 PM CDT Height 172.7 cm (5' 8) 08/21/2021 12:49 PM CDT Body Mass Index 25.85 08/21/2021 12:49 PM CDT Plan of Treatment Health Maintenance Due Date Last Done Comments Breast Cancer Screening-Mammogram 1965 Cervical Cancer Screening 1965 Colon Cancer Screening-Colonoscopy 1965 Depression Screening 1963 Hepatitis C Screening 1963 Hepatitis B Screening 11/23/1981 Regular Well Visit/Exam 18-64 11/23/1981 Pneumococcal vaccine <65 (1 of 2 - PCV) 11/23/1982 Lung Cancer Screening 11/23/2013 Zoster Vaccine (1 of 2) 11/23/2013 Covid-19 Vaccine (3 - season) 01/10/202504/2021, 12/23/2020 Influenza Vaccine (#1) 2025 02/09/2020 DTaP/Tdap/Td Vaccine (2 - Td or Tdap) 12/15/202910/2019 Goals Goal Patient Goal Type Associated Problems Recent Progress Patient-Stated? Author CCM Chronic Pain Care Plan Chronic Care Management Letha Rosa RN Note: Problem: Chronic Pain Goals: 1. Minimize further functional decline 2. Maximize quality of life 3. Control pain Strategies: - Activity/exercise program recommendation - Conservative stepwise pain medicine strategy with multi-disciplinary approach - Recommend healthy lifestyle strategies and compensatory methods as needed Procedures Procedure Name Priority Date/Time Associated Diagnosis Comments CT CHEST WO CONTRAST Schedule Routine, Read Routine (OP Routine) 02/03/2025 10:19 AM CDT Lung nodule PET OUTSIDE REFERENCE Routine 01/26/2025 10:[address] BODY OUTSIDE CONSULT Routine 01/26/2025 10:46 AM CDT Diagnosis unknown from Last 3 Months Results * CT chest without contrast (02/03/2025 10:19 AM CDT) Anatomical Region Laterality Modality Body N/A Computed Tomogra phy 02/05/2025 9:30 AM CDT Narrative 02/05/2025 9:33 AM CDT EXAM DESCRIPTION: CT CHEST WO CONTRAST REASON FOR STUDY: Lung nodule Lung nodule follow up,COPD,smoker,h/o pre cancer cell found on colonoscopy TECHNIQUE: CT scan of the chest performed without intravenous contrast using helical scanning technique. Reconstructed coronal and sagittal MPR images reviewed. All images stored on PACS. Automated exposure control was used as a dose optimization technique for this examination. COMPARISON: PET-CT from 10/28/2024 FINDINGS: The sensitivity for detection of solid visceral lesions is diminished without the use of intravenous contrast. LUNGS: Severe emphysematous changes noted. There is apical parenchymal pleural thickening noted bilaterally. A 9 mm spiculated right upper lobe nodule (image 25) appears stable. This nodule was intensely FDG avid on the recent PET-CT and is suspicious for a malignant process. PLEURA: No effusion. No pneumothorax. MEDIASTINUM/AMIRA: Calcified mediastinal lymph nodes are seen. There is mucous membrane thickening in the distal thoracic esophagus. HEART: Heart size is normal with no pericardial effusion. CORONARY ARTERY CALCIFICATION: Present VASCULATURE: No thoracic aortic aneurysm. AXILLA: No adenopathy. CHEST WALL: No masses. No subcutaneous air. HARDWARE/LINES/TUBES: None. UPPER ABDOMEN: There is a punctate left nephrolith. MUSCULOSKELETAL: No significant abnormality. OTHER: No other significant abnormality. IMPRESSION: 1. Stable size of the spiculated previously FDG avid right upper lobe nodule which remains concerning for a malignant process. No new masses or lymphadenopathy identified. 2. Severe emphysematous change. THIS IS AN ELECTRONICALLY VERIFIED FINAL REPORT 02/05/2025 9:33 AM - Electronically signed by Ric Parekh M.D. BS T: Report ID: [id number] Reading Location: [place] [address] Procedure Note Ric Parekh MD - 02/05/2025 EXAM DESCRIPTION: CT CHEST WO CONTRAST REASON FOR STUDY: Lung nodule Lung nodule follow up,COPD,smoker,h/o pre cancer cell found oncolonoscopy TECHNIQUE: CT scan of the chest performed without intravenous contrastusing helical scanning technique. Reconstructed coronal and sagittal MPR images reviewed. All images stored on PACS. Automated exposure control was usedas a dose optimization technique for this examination. COMPARISON: PET-CT from 10/28/2024 FINDINGS: The sensitivity for detection of solid visceral lesions is diminished without the use of intravenous contrast. LUNGS: Severe emphysematous changes noted. There is apical parenchymal pleural thickening noted bilaterally. A 9 mm spiculated right upper lobe nodule (image 25) appears stable. This nodule was intensely FDG avid onthe recent PET-CT and is suspicious for a malignant process. PLEURA: No effusion. No pneumothorax. MEDIASTINUM/AMIRA: Calcified mediastinal lymph nodes are seen. There is mucous membrane thickening in the distal thoracic esophagus. HEART: Heart size is normal with no pericardial effusion. CORONARY ARTERY CALCIFICATION: Present VASCULATURE: No thoracic aortic aneurysm. AXILLA: No adenopathy. CHEST WALL: No masses. No subcutaneous air. HARDWARE/LINES/TUBES: None. UPPER ABDOMEN: There is a punctate left nephrolith. MUSCULOSKELETAL: No significant abnormality. OTHER: No other significant abnormality. IMPRESSION: 1. Stable size of the spiculated previously FDG avid right upper lobe nodule which remains concerning for a malignant process. Nonew masses or lymphadenopathy identified. 2. Severe emphysematous change. THIS IS AN ELECTRONICALLY VERIFIED FINAL REPORT 02/05/2025 9:33 AM - Electronically signed by Ric Parekh M.D. BS T: Report ID: [id number] Reading Location: [place] [address] George Bermeo MD IM CT PROCEDURES Final Resul t * PET Outside Reference (01/26/2025 10:47 AM CDT) Impressions [facility] - 01/26/2025 10:47 AM CDT These images are for Reference purposes only and have not been reviewed by [facility]. There will be no report generated by a [facility] Radiologist. Narrative [facility] - 01/26/2025 10:47 AM CDT EXAMINATION: Images For Reference Purposes Only George Bermeo MD IMG PET PROCEDURES Final Resu lt [facility] * CT Body Outside Consult (01/26/2025 10:46 AM CDT) Anatomical Region Laterality Modality Body N/A Computed Tomogra phy 01/26/2025 11:5 7 AM CDT Impressions 01/26/2025 12:10 PM CDT This study was initially nominated as a consult on outside images via Outside Image Sharing Service. However, a consult was not performed because a more recent FDG PET/CT was obtained on 10/28/[address] chest has been ordered. Accordingly, there will be no separate report of this study generated by a [facility] Radiologist. Dictated by: Hill Chino MD The radiology attending physician has personally reviewed this study, and had reviewed and/or edited this written report and agrees with it. Electronically signed by: Cholo Ferrara M.D. [facility] 01/26/2025 12:10 PM CDT EXAMINATION: CHANGE CONSULT ON OUTSIDE IMAGES TO REFERENCE IMAGES Procedure Note Cholo Ferrara MD - 01/26/2025 EXAMINATION: CHANGE CONSULT ON OUTSIDE IMAGES TO REFERENCE IMAGES IMPRESSION: This study was initially nominated as a consult on outside images via Outside Image Sharing Service. However, a consult was not performed because a more recent FDG PET/CT was obtained on 10/28/[address] chest has been ordered. Accordingly, there will be no separate report of this study generated by a [facility] Radiologist. Dictated by: Hill Chino MD The radiology attending physician has personally reviewed this study, and had reviewed and/or edited this written report and agrees with it. Electronically signed by: Cholo Ferrara M.D. George Bermeo MD IMG CT PROCEDURES Final Resul t from Last 3 Months Insurance [facility] [place] [address] [facility] Care Teams Uniform Maker Relationship Specialty Start Date End Date Hank Varghese PA [address] [facility] [address] [place], [place] [phone] PCP - General Physician Showroom Consultant 01/03/21
--- OUTSIDE RECORDS SUMMARY | 2025-02-10 12:02 | XMS_ITS | Clinical Summary ---
Author Organization [facility] Address [address] [place] [address] Care Team Providers Care Log Chipper Operator Name Role Phone Shabbir Lares Dinh MOLINA Primary Care Provider [phone] Source Comments [facility],non-owned Affiliates and Associated Physician Practices is amultiple site organization consisting of ambulatory clinics and hospital sitesin [place] and [place]. This disclosure is being madepursuant to the Care Everywhere program and may not contain all information available regarding this patient. 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 02/17/1998 1019 <1> Research Computing Specialist Isidra Jimenez (ASCP) Pathologist. Celio Johnson M.D. [...] Most Recently Relevant to Health Maintenance Insurance [facility] SELF PAY NO INSURANCE Member Subscriber Plan / Payer (Ef fective for All Dates) Name:Yonas Maradiaga Member ID:Not on file Relation to Subscriber:Not on file Name:YONAS MARADIAGA Subscriber ID:Not on file (Home) Address: [address] [place] [id number] Payer ID:Not on file Group ID:Not on file Type:Self Pay Address: [place], [place] [facility] Care Teams Log Chipper Operator Relationship Specialty Start Date End Date Shabbir Lares DO [address] [place] [address] PCP - General 09/27/20
--- OUTSIDE RECORDS SUMMARY | 2025-02-10 12:02 | XMS_ITS | Clinical Summary ---
Author Organization [facility] Address [address] [place] [address] Phone Care Team Providers Care Cloud Architect Name Role Phone Unavailable Primary Care Provider Unavailabl e Encounters Date Type Department Care Team Description 01/05/2025 External Device Data [facility] ABSTRACTION Provider, Abstract 12/28/2024 External Device Data [facility] ABSTRACTION Provider, Abstract 12/28/2024 External Device Data [facility] ABSTRACTION Provider, Abstract 12/24/2024 Telephone [facility] Pul[facility] [address] [facility] [address] [place] [address] Donny Rossi MD from Last 3 Months Social History Tobacco Use Types Packs/Day Years Used Date Smoking Tobacco: Never Assessed Comments Unknown Sex and Gender Information Value Date Recorded Sex Assigned at Not on file Legal Sex Female 10:20 AM CDT Gender Identity Not on file Sexual Orientation Not on file Plan of Treatment Health Maintenance Due Date Last Done Comments DTAP/TDAP/TD VACCINES (1 - Tdap) 11/23/1982 HPV/Cotest (21-29) 11/23/1984 CERVICAL CANCER SCREENING 11/23/1993 HPV/Cotest (30-65) 11/23/1993 PAP SMEAR 11/23/1993 BREAST CANCER SCREENING 2003 COLORECTAL SCREENING 11/23/2008 Colorectal Cancer Screening 11/23/2008 FIT-DNA Q 3 years 11/23/2008 FIT/FOBT Q 1 year 11/23/2008 Flex Sig/CT Colonography Q 5 years 11/23/2008 ZOSTER VACCINE (1 of 2) 11/23/2013 INFLUENZA VACCINE (#1) 2024 RSV VACCINE (60+ or ) (1 - 1-dose 75+ series) 11/23/2038
--- OUTSIDE RECORDS SUMMARY | 2025-02-10 12:02 | XMS_ITS | Encounter Summary ---
Author Organization [facility] Address [address] [place] [address] Care Team Providers Care Carding Machine Operator Name Role Phone Unavailable Primary Care Provider Unavailabl e Encounter Details Date Type Department Care Team (Late st Contact Info) Description 12/24/2024 Telephone [facility] Pulmonology [facility] [address] [place] [address] Donny Rossi MD [address] [place] [address] Social History Tobacco Use Types Packs/Day Years Used Date Smoking Tobacco: Never Assessed Comments Unknown Sex and Gender Information Value Date Recorded Sex Assigned at Not on file Legal Sex Female 10:20 AM CDT Gender Identity Not on file Sexual Orientation Not on file documented as of this encounter Miscellaneous Notes * Telephone Encounter - Anastasia Calderon - 12/24/2024 9:37 AM CDT Spoke with Amy at [facility] because pt does not come up in our system under the name Deepthi. We have [employer]. They want notes but we don't have any documents for pt. She said they sent referral but I don't see that either. documented in this encounter Plan of Treatment Not on file documented as of this encounter Visit Diagnoses Not on filedocumented in this encounter
[2025-02-10 12:56] LABS: Influenza A QL RT-PCR Negative (Negative); Influenza B QL RT-PCR Negative (Negative); RSV RNA, RT-PCR Negative (Negative); SARS-CoV-2 RNA PCR Negative (Negative)
== END 2025-02-10 11:44 | disposition home or self-care (01) ==
LOC: ANHLAB 11:46
PROVIDERS: PCP Internal Medicine; Visit Provider Nurse Practitioner
DX: Z20.822 Contact with and (suspected) exposure to COVID-19 (principal); R50.9 Fever, unspecified
CPT/HCPCS: 87637